=== PATIENT | male | born 1940 | race Caucasian/White ===

== ENCOUNTER → 2016-05-15 | Outpatient (REF) | payer MEDICARE ==
[~2016-05-15] MED LIST: ASPI81TA85 PO; BEE580CA PO; DOCQ100C PO; FURO40TA2 PO; GING550C PO; IRONCAP2 PO; LISI10TA4 PO; LUTECAP3 PO; METF500T PO; METO25TAB PO; OMEP40CA2 PO; VITATAB11 PO; [UNRECOGNIZED DRUG - CODE] PO
[2016-05-15 18:17] LABS: BASO % 0.5 % (0.0-1.0); EOS # 0.2 K/mm3 (0.0-0.50); EOS % 3.9 % (0.0-3.0); LARGE UNSTAINED CELL # 0.2 K/mm3 (0.0-0.4); LARGE UNSTAINED CELL % 4.8 % (0.0-4.0); LYMPH # 1.6 K/mm3 (1.5-4.5); LYMPH % 31.7 % (24.0-44.0); MEAN CORPUSCULAR HEMOGLOBIN 33.3 pg (27.0-33.0); MEAN CORPUSCULAR HGB CONC 34.5 g/dl (32.0-36.5); MEAN CORPUSCULAR VOLUME 96.7 fl (80.0-96.0); MONO # 0.5 K/mm3 (0.0-0.8); MONO % 10.4 % (0.0-5.0); NEUTROPHILS # 2.4 K/mm3 (1.8-7.7); NEUTROPHILS % 48.7 % (36.0-66.0); PLATELET COUNT, AUTOMATED 181 k/mm3 (150-450); RED CELL DISTRIBUTION WIDTH 12.9 % (11.5-14.5)
[2016-05-15 18:25] LABS: CALCIUM LEVEL 8.5 MG/DL (8.8-10.2); CREATININE FOR GFR 1.3 MG/DL (0.70-1.30); GLOMERULAR FILTRATION RATE 57.6 (>42); POTASSIUM SERUM 4.4 MEQ/L (3.5-5.1)
== END ==
LOC: M LABDRAW1 16:06
PROVIDERS: ATTEND Physician Assistant
DX: R05 Cough (principal); Z79.899 Other long term (current) drug therapy

== ENCOUNTER → 2016-06-06 | Outpatient (CLI) | payer MEDICARE ==
[2016-06-06 13:40] LABS: ALBUMIN 3.5 GM/DL (3.2-5.2); ALBUMIN/GLOBULIN RATIO 1.17 (1.00-1.93); BILIRUBIN,DIRECT 0.1 MG/DL (0.0-0.2); BILIRUBIN,TOTAL 0.4 MG/DL (0.2-1.0); TOTAL PROTEIN 6.5 GM/DL (6.4-8.2)
== END ==
LOC: M SMT 10:58
PROVIDERS: ATTEND Internal Medicine Cardiovascular Disease
DX: I48.91 Unspecified atrial fibrillation (principal)

== ENCOUNTER → 2016-07-02 | Outpatient (CLI) | payer MEDICARE ==
[2016-07-02 11:40] LABS: ALBUMIN 3.4 GM/DL (3.2-5.2); ALBUMIN/GLOBULIN RATIO 1.17 (1.00-1.93); ALKALINE PHOSPHATASE 51 U/L (45-117); ALT/SGPT 32 U/L (12-78); ANION GAP 7 MEQ/L (8-16); AST/SGOT 25 U/L (15-37); BILIRUBIN,TOTAL 0.6 MG/DL (0.2-1.0); BLOOD UREA NITROGEN 16 MG/DL (7-18); CALCIUM LEVEL 8.7 MG/DL (8.8-10.2); CARBON DIOXIDE LEVEL 30 MEQ/L (21-32); CHLORIDE LEVEL 104 MEQ/L (98-107); CHOLESTEROL LEVEL 98 MG/DL (<200); CREATININE FOR GFR 1.18 MG/DL (0.70-1.30); GLOMERULAR FILTRATION RATE > 60.0 (>42); GLUCOSE, FASTING 101 MG/DL (83-110); POTASSIUM SERUM 4.8 MEQ/L (3.5-5.1); SODIUM LEVEL 141 MEQ/L (136-145); TOTAL PROTEIN 6.3 GM/DL (6.4-8.2); TRIGLYCERIDES LEVEL 67 MG/DL (<150)
[2016-07-02 11:49] LABS: BASO % 0.8 % (0.0-1.0); EOS # 0.9 K/mm3 (0.0-0.50); EOS % 16.2 % (0.0-3.0); LARGE UNSTAINED CELL # 0.2 K/mm3 (0.0-0.4); LARGE UNSTAINED CELL % 3.2 % (0.0-4.0); LYMPH # 1.9 K/mm3 (1.5-4.5); LYMPH % 29.9 % (24.0-44.0); MEAN CORPUSCULAR HEMOGLOBIN 34.5 pg (27.0-33.0); MEAN CORPUSCULAR HGB CONC 34.4 g/dl (32.0-36.5); MEAN CORPUSCULAR VOLUME 100.3 fl (80.0-96.0); MONO # 0.4 K/mm3 (0.0-0.8); MONO % 6.9 % (0.0-5.0); NEUTROPHILS # 2.5 K/mm3 (1.8-7.7); NEUTROPHILS % 43.1 % (36.0-66.0); PLATELET COUNT, AUTOMATED 161 k/mm3 (150-450); RED CELL DISTRIBUTION WIDTH 13.2 % (11.5-14.5); WHITE BLOOD COUNT 5.8 K/mm3 (4.0-10.0)
== END ==
LOC: M SMT 07:59
PROVIDERS: ATTEND Family Medicine
DX: D50.9 Iron deficiency anemia, unspecified (principal); E11.9 Type 2 diabetes mellitus without complications; Z98.61 Coronary angioplasty status

== ENCOUNTER → 2016-08-08 | Outpatient (CLI) | payer MEDICARE ==
--- NOTE | 2016-08-08 14:59 | REP ---
Clinical: Dizziness . Technique: Stevens scale and color Doppler evaluation using linear high frequency transducer Findings: Two-dimensional stevens scale and color images demonstrate mixed small with atheromatous plaquing along the bilateral common carotid arteries extending to the carotid bulbs where moderate amount of mixed plaque material is identified (right greater than left). Color images suggest mild turbulent flow through the atheromatous plaquing of the right carotid bulb. Color Doppler interrogation demonstrates normal arterial wave patterns and velocities with moderate spectral broadening. Normal flow direction is appreciated in the bilateral vertebral arteries. RIGHT (cm/s) LEFT (cm/s) ICA peak systolic velocity 100.6 68.9 ICA diastolic velocity 30.7 22.6 ECA peak systolic velocity 86.2 79.5 CCA peak systolic velocity 89.9 90.9 ICA/CCA ratio 1.02 0.76 Impression: 1. Based on set standards, narrowing falls within the less than 50% range. 2. Focal prominent atheromatous plaquing in the right carotid bulb causing mild turbulence and spectral broadening may warrant MRA corroboration. Signed by Bruno Gomez MD 08/08/2016 01:05 P
== END ==
LOC: M RAD 11:22
PROVIDERS: ATTEND Physician Assistant
DX: R42 Dizziness and giddiness (principal)

== ENCOUNTER → 2016-08-16 | Outpatient (CLI) | payer MEDICARE ==
--- NOTE | 2016-08-16 11:08 | REP ---
Chest two views HISTORY: Dyspnea Comparison: 05/15/2016 An increase in interstitial markings is present in the lungs. Linear density is present in the right lower lobe consistent with scar. The heart is normal in size. The pulmonary vasculature is normal in appearance. The bony structure is intact. IMPRESSION: COPD. Signed by Jeff Martin MD 08/16/2016 11:00 A
== END ==
LOC: M SMT 10:14
PROVIDERS: ATTEND Internal Medicine Cardiovascular Disease
DX: R06.2 Wheezing (principal); J44.9 Chronic obstructive pulmonary disease, unspecified

== ENCOUNTER → 2016-10-05 | Outpatient (REF) | payer MEDICARE ==
[2016-10-05 13:19] LABS: FOLATE 15.7 NG/ML; VITAMIN B12 LEVEL 509 PG/ML
[2016-10-05 13:46] LABS: ANION GAP 7 MEQ/L (8-16); BLOOD UREA NITROGEN 26 MG/DL (7-18); CALCIUM LEVEL 8.9 MG/DL (8.8-10.2); CARBON DIOXIDE LEVEL 28 MEQ/L (21-32); CHLORIDE LEVEL 107 MEQ/L (98-107); CREATININE FOR GFR 1.18 MG/DL (0.70-1.30); FREE T4 1.38 NG/DL (0.76-1.46); GLOMERULAR FILTRATION RATE > 60.0 (>42); GLUCOSE, FASTING 108 MG/DL (83-110); PERCENT SATURATION 32.1 % (19.7-37.4); SODIUM LEVEL 142 MEQ/L (136-145); TOTAL IRON BINDING CAPACITY 243 UG/DL (250-450)
[2016-10-05 13:50] LABS: POTASSIUM SERUM 5.2 MEQ/L (3.5-5.1)
[2016-10-06 14:12] LABS: Lyme Disease IgG/IgM Antibodie <0.91 ISR (0.00-0.90); Lyme Disease IgM Ab Quantitati <0.80 index (0.00-0.79)
== END ==
LOC: M LABSMT 12:49
PROVIDERS: ATTEND Physician Assistant
DX: I48.1 Persistent atrial fibrillation (principal); D50.9 Iron deficiency anemia, unspecified; E11.9 Type 2 diabetes mellitus without complications; S40.862A Insect bite (nonvenomous) of left upper arm, initial encounter; X58.XXXA Exposure to other specified factors, initial encounter; Y93.9 Activity, unspecified; Y92.9 Unspecified place or not applicable; Y99.8 Other external cause status

== ENCOUNTER → 2017-01-22 | Outpatient (CLI) | payer MEDICARE ==
[~2017-01-22] MED LIST changes: -METF500T PO; +METF500T13 PO
[2017-01-22 13:07] LABS: BASO % 0.6 % (0.0-1.0); EOS # 0.3 K/mm3 (0.0-0.50); LARGE UNSTAINED CELL # 0.2 K/mm3 (0.0-0.4); LARGE UNSTAINED CELL % 3.2 % (0.0-4.0); LYMPH # 1.4 K/mm3 (1.5-4.5); MEAN CORPUSCULAR HEMOGLOBIN 34.1 pg (27.0-33.0); MEAN CORPUSCULAR HGB CONC 33.8 g/dl (32.0-36.5); MEAN CORPUSCULAR VOLUME 100.9 fl (80.0-96.0); MONO # 0.4 K/mm3 (0.0-0.8); MONO % 7.7 % (0.0-5.0); NEUTROPHILS # 3.3 K/mm3 (1.8-7.7); NEUTROPHILS % 57.5 % (36.0-66.0); PLATELET COUNT, AUTOMATED 183 k/mm3 (150-450); RED CELL DISTRIBUTION WIDTH 13.1 % (11.5-14.5); WHITE BLOOD COUNT 5.7 K/mm3 (4.0-10.0)
[2017-01-22 13:56] LABS: ALBUMIN 3.5 GM/DL (3.2-5.2); ALBUMIN/GLOBULIN RATIO 1.21 (1.00-1.93); ALKALINE PHOSPHATASE 52 U/L (45-117); ALT/SGPT 30 U/L (12-78); ANION GAP 6 MEQ/L (8-16); AST/SGOT 17 U/L (15-37); BILIRUBIN,TOTAL 0.6 MG/DL (0.2-1.0); BLOOD UREA NITROGEN 17 MG/DL (7-18); CALCIUM LEVEL 8.4 MG/DL (8.8-10.2); CARBON DIOXIDE LEVEL 29 MEQ/L (21-32); CHLORIDE LEVEL 109 MEQ/L (98-107); CHOLESTEROL LEVEL 94 MG/DL (<200); GLOMERULAR FILTRATION RATE > 60.0 (>42); GLUCOSE, FASTING 96 MG/DL (83-110); POTASSIUM SERUM 4.8 MEQ/L (3.5-5.1); SODIUM LEVEL 144 MEQ/L (136-145); TOTAL PROTEIN 6.4 GM/DL (6.4-8.2); TRIGLYCERIDES LEVEL 82 MG/DL (<150)
[2017-01-23 14:14] LABS: PSA TOTAL 0.7 ng/mL (0.0-4.0)
== END ==
LOC: M SMT 08:00
PROVIDERS: ATTEND Family Medicine
DX: I48.1 Persistent atrial fibrillation (principal); R35.0 Frequency of micturition; E11.9 Type 2 diabetes mellitus without complications

== ENCOUNTER → 2017-02-03 | Outpatient (CLI) | payer MEDICARE ==
--- NOTE | 2017-02-07 10:41 | SLEEPCENT ---
DATE OF PROCEDURE: 02/03/2017 REQUESTING PROVIDER: Dr. Gilman INTERPRETATION: Nocturnal polysomnography was performed for the titration of pressure therapy in this patient with a clinical diagnosis of obstructive sleep apnea syndrome supported by home testing, which revealed a respiratory event index of 56.8. For testing, a [employer] Simplus full face mask of medium size was used, 4 cm of water pressure were applied to the circuit and the lights were extinguished. 8 hours and 10 minutes of data were reviewed. There were 374 minutes of sleep identified. Sleep latency was mildly prolonged at 48 minutes. Rapid eye movement (REM) latency was short at 34 minutes. Sleep architecture was good with five REM periods. Overall sleep efficiency was 77.5%. Electrocardiogram (EKG) showed a sinus rhythm with an average heart rate of 58 beats per minute. Unifocal ventricular ectopy was seen on occasion. Some heart rate variability was seen early in the study. Rate ranged 50 to 80 beats per minute. Electroencephalogram (EEG) showed reasonably normal waveforms. There were no focal events identified. Respiratory events were best palliated with a CPAP to a pressure of +8. Significant limb activity was seen over the course of the study with multiple trains of events, but limb movement arousal index was 5.4. IMPRESSION: Obstructive sleep apnea syndrome (G47.33). RECOMMENDATIONS: Nightly use of pressure therapy at 8 cm of water.
== END ==
LOC: M SLEEP 20:00
PROVIDERS: ATTEND Internal Medicine Pulmonary Disease
DX: G47.33 Obstructive sleep apnea (adult) (pediatric) (principal)

== ENCOUNTER → 2017-04-22 | Outpatient (CLI) | payer MEDICARE ==
[2017-04-22 18:34] LABS: ANION GAP 7 MEQ/L (8-16); BLOOD UREA NITROGEN 15 MG/DL (7-18); CALCIUM LEVEL 8.8 MG/DL (8.8-10.2); CARBON DIOXIDE LEVEL 29 MEQ/L (21-32); CHLORIDE LEVEL 105 MEQ/L (98-107); CREATININE FOR GFR 1.21 MG/DL (0.70-1.30); GLOMERULAR FILTRATION RATE > 60.0 (>42); GLUCOSE, FASTING 76 MG/DL (83-110); POTASSIUM SERUM 4.5 MEQ/L (3.5-5.1); SODIUM LEVEL 141 MEQ/L (136-145)
== END ==
LOC: M SMT 14:42
PROVIDERS: ATTEND Physician Assistant
DX: E11.9 Type 2 diabetes mellitus without complications (principal)

== ENCOUNTER → 2017-07-17 | Outpatient (CLI) | payer MEDICARE ==
[2017-07-17 13:33] LABS: BASO % 0.7 % (0.0-1.0); EOS # 0.3 10^3/uL (0.0-0.50); EOS % 5.2 % (0.0-3.0); HEMATOCRIT 40.9 % (42.0-52.0); HEMOGLOBIN 13.7 g/dl (14.0-18.0); IMMATURE GRANULOCYTE % 0.2 % (0-3.0); LYMPH # 2.2 10^3/uL (1.5-4.5); LYMPH % 35.2 % (24.0-44.0); MEAN CORPUSCULAR HEMOGLOBIN 32.4 pg (27.0-33.0); MEAN CORPUSCULAR HGB CONC 33.5 g/dl (32.0-36.5); MEAN CORPUSCULAR VOLUME 96.7 fl (80.0-96.0); MONO # 0.8 10^3/uL (0.0-0.8); MONO % 12.9 % (0.0-5.0); NEUTROPHILS # 2.8 10^3/uL (1.8-7.7); NEUTROPHILS % 45.8 % (36.0-66.0); PLATELET COUNT, AUTOMATED 152 10^3/uL (150-450); RED BLOOD COUNT 4.23 10^6/uL (4.30-6.10); RED CELL DISTRIBUTION WIDTH 12.9 % (11.5-14.5); WHITE BLOOD COUNT 6.1 10^3/uL (4.0-10.0)
[2017-07-17 14:39] LABS: ALBUMIN 3.5 GM/DL (3.2-5.2); ALBUMIN/GLOBULIN RATIO 1.13 (1.00-1.93); ALKALINE PHOSPHATASE 59 U/L (45-117); ALT/SGPT 25 U/L (12-78); ANION GAP 5 MEQ/L (8-16); AST/SGOT 16 U/L (7-37); BILIRUBIN,TOTAL 0.6 MG/DL (0.2-1.0); BLOOD UREA NITROGEN 22 MG/DL (7-18); CALCIUM LEVEL 8.3 MG/DL (8.8-10.2); CARBON DIOXIDE LEVEL 28 MEQ/L (21-32); CHLORIDE LEVEL 107 MEQ/L (98-107); CREATININE FOR GFR 1.21 MG/DL (0.70-1.30); FERRITIN 309 NG/ML (26-388); GLOMERULAR FILTRATION RATE > 60.0 (>42); GLUCOSE, FASTING 105 MG/DL (70-100); IRON (FE) 94 UG/DL (65-175); POTASSIUM SERUM 4.6 MEQ/L (3.5-5.1); SODIUM LEVEL 140 MEQ/L (136-145); TOTAL PROTEIN 6.6 GM/DL (6.4-8.2)
[2017-07-17 15:49] LABS: ESTIMATED AVERAGE GLUCOSE 120 MG/DL (60-110); HEMOGLOBIN A1c 5.8 %
== END ==
LOC: M SMT 08:12
DX: E11.9 Type 2 diabetes mellitus without complications (principal); K59.00 Constipation, unspecified; D50.9 Iron deficiency anemia, unspecified
CPT/HCPCS: 83540

== ENCOUNTER → 2017-08-05 | Outpatient (CLI) | payer MEDICARE | LOC: M SMT 09:05 | DX: M54.16 Radiculopathy, lumbar region (principal) | CPT/HCPCS: 72114 ==

== ENCOUNTER → 2017-10-21 | Outpatient (CLI) | payer MEDICARE ==
[2017-10-21 13:33] LABS: ANION GAP 6 MEQ/L (8-16); BLOOD UREA NITROGEN 17 MG/DL (7-18); CALCIUM LEVEL 8.4 MG/DL (8.8-10.2); CARBON DIOXIDE LEVEL 27 MEQ/L (21-32); CHLORIDE LEVEL 107 MEQ/L (98-107); CREATININE FOR GFR 1.11 MG/DL (0.70-1.30); GLOMERULAR FILTRATION RATE > 60.0 (>42); GLUCOSE, FASTING 111 MG/DL (70-100); POTASSIUM SERUM 4.8 MEQ/L (3.5-5.1); PSA SCREENING 0.72 NG/ML (< 4.0); SODIUM LEVEL 140 MEQ/L (136-145)
[2017-10-21 13:57] LABS: CREATININE, URINE 96.5 MG/DL; MALB URINE SIEMENS < 5.0 MG/L; MAU/CREAT RATIO 5.1 MCG/MG (0.0-30.0)
[2017-10-21 14:24] LABS: ESTIMATED AVERAGE GLUCOSE 128 MG/DL (60-110); HEMOGLOBIN A1c 6.1 %
== END ==
LOC: M SMT 07:59
DX: E11.9 Type 2 diabetes mellitus without complications (principal); Z12.5 Encounter for screening for malignant neoplasm of prostate
CPT/HCPCS: 83036

== ENCOUNTER → 2018-01-27 | Outpatient (CLI) | payer MEDICARE ==
[2018-01-27 15:57] LABS: ESTIMATED AVERAGE GLUCOSE 111 MG/DL (60-110); HEMOGLOBIN A1c 5.5 %
[2018-01-27 20:55] LABS: ALBUMIN 3.5 GM/DL (3.2-5.2); ALBUMIN/GLOBULIN RATIO 1.17 (1.00-1.93); ALKALINE PHOSPHATASE 59 U/L (45-117); ALT/SGPT 33 U/L (12-78); ANION GAP 8 MEQ/L (8-16); AST/SGOT 23 U/L (7-37); BILIRUBIN,TOTAL 0.6 MG/DL (0.2-1.0); BLOOD UREA NITROGEN 21 MG/DL (7-18); CALCIUM LEVEL 8.8 MG/DL (8.8-10.2); CARBON DIOXIDE LEVEL 26 MEQ/L (21-32); CHLORIDE LEVEL 107 MEQ/L (98-107); CREATININE FOR GFR 1.19 MG/DL (0.70-1.30); GLOMERULAR FILTRATION RATE > 60.0 (>42); GLUCOSE, FASTING 96 MG/DL (70-100); SODIUM LEVEL 141 MEQ/L (136-145); TOTAL PROTEIN 6.5 GM/DL (6.4-8.2)
== END ==
LOC: M SMT 08:02
DX: E11.9 Type 2 diabetes mellitus without complications (principal)
CPT/HCPCS: 80053

== ENCOUNTER → 2018-04-23 | Outpatient (CLI) | payer MEDICARE ==
[2018-04-23 13:29] LABS: BASO # 0.1 10^3/uL (0.0-0.2); BASO % 0.9 % (0.0-1.0); EOS # 0.3 10^3/uL (0.0-0.50); EOS % 4.5 % (0.0-3.0); HEMATOCRIT 39.3 % (42.0-52.0); HEMOGLOBIN 13.6 g/dl (13.5-17.5); IMMATURE GRANULOCYTE % 0.4 % (0-3.0); LYMPH # 1.5 10^3/uL (1.5-4.5); LYMPH % 26.6 % (24.0-44.0); MEAN CORPUSCULAR HEMOGLOBIN 33.8 pg (27.0-33.0); MEAN CORPUSCULAR HGB CONC 34.6 g/dl (32.0-36.5); MEAN CORPUSCULAR VOLUME 97.8 fl (80.0-96.0); MONO # 0.7 10^3/uL (0.0-0.8); MONO % 13.2 % (0.0-5.0); NEUTROPHILS % 54.4 % (36.0-66.0); PLATELET COUNT, AUTOMATED 168 10^3/uL (150-450); RED BLOOD COUNT 4.02 10^6/uL (4.30-6.10); RED CELL DISTRIBUTION WIDTH 12.5 % (11.5-14.5); WHITE BLOOD COUNT 5.5 10^3/uL (4.0-10.0)
[2018-04-23 14:53] LABS: ALBUMIN 3.4 GM/DL (3.2-5.2); ALBUMIN/GLOBULIN RATIO 1.13 (1.00-1.93); ALKALINE PHOSPHATASE 57 U/L (45-117); ALT/SGPT 27 U/L (12-78); ANION GAP 6 MEQ/L (8-16); AST/SGOT 27 U/L (7-37); BILIRUBIN,TOTAL 0.5 MG/DL (0.2-1.0); BLOOD UREA NITROGEN 12 MG/DL (7-18); CALCIUM LEVEL 8.6 MG/DL (8.8-10.2); CARBON DIOXIDE LEVEL 26 MEQ/L (21-32); CHLORIDE LEVEL 106 MEQ/L (98-107); CHOLESTEROL LEVEL 98 MG/DL (<200); CREATININE FOR GFR 1.17 MG/DL (0.70-1.30); FREE T4 1.28 NG/DL (0.76-1.46); GLOMERULAR FILTRATION RATE > 60.0 (>42); GLUCOSE, FASTING 100 MG/DL (70-100); HDL CHOLESTEROL 40 MG/DL (>40); LDL CHOLESTEROL 39 MG/DL (<100); NON-HDL-C 58 MG/DL; POTASSIUM SERUM 4.9 MEQ/L (3.5-5.1); SODIUM LEVEL 138 MEQ/L (136-145); TOTAL PROTEIN 6.4 GM/DL (6.4-8.2); TRIGLYCERIDES LEVEL 97 MG/DL (<150)
[2018-04-23 16:35] LABS: ESTIMATED AVERAGE GLUCOSE 123 MG/DL (60-110); HEMOGLOBIN A1c 5.9 %
== END ==
LOC: M SMT 08:55
DX: E11.9 Type 2 diabetes mellitus without complications (principal); I48.1 Persistent atrial fibrillation
CPT/HCPCS: 84443

== ENCOUNTER → 2018-05-20 | Outpatient (CLI) | payer MEDICARE ==
[~2018-05-20] MED LIST changes: -DOCQ100C PO; +DOCQ100C5 PO
--- NOTE | 2018-05-20 10:02 | REP ---
RIGHT SHOULDER, THREE VIEWS: HISTORY: Pain. There is no acute fracture or dislocation. There is minimal narrowing of the glenohumeral joint space and moderate narrowing of the acromioclavicular joint space. IMPRESSION: There is no acute fracture or dislocation. Electronically Signed by Jeff Martin MD 05/20/2018 10:07 A
== END ==
LOC: M SMT 09:14
PROVIDERS: ATTEND Family Medicine
DX: M25.511 Pain in right shoulder (principal)

== ENCOUNTER → 2018-08-14 | Outpatient (CLI) | payer MEDICARE ==
[~2018-08-14] MED LIST changes: +METO1TAB63 PO; -METO25TAB PO
[2018-08-14 14:10] LABS: BASO % 0.7 % (0.0-1.0); EOS # 0.3 10^3/uL (0.0-0.50); EOS % 4.9 % (0.0-3.0); HEMATOCRIT 39.4 % (42.0-52.0); HEMOGLOBIN 13.4 g/dl (13.5-17.5); LYMPH # 1.7 10^3/uL (1.5-4.5); LYMPH % 27.7 % (24.0-44.0); MEAN CORPUSCULAR HEMOGLOBIN 33.7 pg (27.0-33.0); MONO # 0.8 10^3/uL (0.0-0.8); MONO % 13.8 % (0.0-5.0); NEUTROPHILS # 3.1 10^3/uL (1.8-7.7); NEUTROPHILS % 52.6 % (36.0-66.0); PLATELET COUNT, AUTOMATED 142 10^3/uL (150-450); RED BLOOD COUNT 3.98 10^6/uL (4.30-6.10)
[2018-08-14 14:17] LABS: ALBUMIN 3.5 GM/DL (3.2-5.2); ALT/SGPT 23 U/L (12-78); BILIRUBIN,TOTAL 0.6 MG/DL (0.2-1.0); BLOOD UREA NITROGEN 22 MG/DL (7-18); CALCIUM LEVEL 8.5 MG/DL (8.8-10.2); CARBON DIOXIDE LEVEL 28 MEQ/L (21-32); CHLORIDE LEVEL 108 MEQ/L (98-107); CREATININE FOR GFR 1.15 MG/DL (0.70-1.30); FERRITIN 254 NG/ML (26-388); GLOMERULAR FILTRATION RATE > 60.0 (>42); GLUCOSE, FASTING 97 MG/DL (70-100); POTASSIUM SERUM 4.7 MEQ/L (3.5-5.1); SODIUM LEVEL 140 MEQ/L (136-145); TOTAL PROTEIN 6.2 GM/DL (6.4-8.2)
[2018-08-14 14:36] LABS: MALB URINE SIEMENS < 5.0 MG/L
== END ==
LOC: M SMT 09:12
PROVIDERS: ATTEND Family Medicine
DX: E11.9 Type 2 diabetes mellitus without complications (principal); D50.9 Iron deficiency anemia, unspecified

== ENCOUNTER → 2018-11-11 | Outpatient (CLI) | payer MEDICARE ==
[2018-11-11 13:17] LABS: BASO # 0.1 10^3/uL (0.0-0.2); BASO % 0.8 % (0.0-1.0); EOS # 0.2 10^3/uL (0.0-0.50); EOS % 3.3 % (0.0-3.0); HEMOGLOBIN 13.4 g/dl (13.5-17.5); LYMPH # 2.2 10^3/uL (1.5-4.5); LYMPH % 34.1 % (24.0-44.0); MEAN CORPUSCULAR HEMOGLOBIN 33.7 pg (27.0-33.0); MEAN CORPUSCULAR HGB CONC 34.4 g/dl (32.0-36.5); MONO # 0.8 10^3/uL (0.0-0.8); MONO % 13.2 % (0.0-5.0); NEUTROPHILS # 3.1 10^3/uL (1.8-7.7); NEUTROPHILS % 48.3 % (36.0-66.0); PLATELET COUNT, AUTOMATED 159 10^3/uL (150-450); RED BLOOD COUNT 3.98 10^6/uL (4.30-6.10); WHITE BLOOD COUNT 6.4 10^3/uL (4.0-10.0)
[2018-11-11 13:55] LABS: ALBUMIN 3.4 GM/DL (3.2-5.2); ALT/SGPT 23 U/L (12-78); BILIRUBIN,TOTAL 0.5 MG/DL (0.2-1.0); BLOOD UREA NITROGEN 21 MG/DL (7-18); CALCIUM LEVEL 8.4 MG/DL (8.8-10.2); CARBON DIOXIDE LEVEL 28 MEQ/L (21-32); CHLORIDE LEVEL 105 MEQ/L (98-107); CHOLESTEROL LEVEL 113 MG/DL (<200); CHOLESTEROL RISK RATIO 2.568 (<5); FREE T4 1.04 NG/DL (0.76-1.46); GLOMERULAR FILTRATION RATE > 60.0 (>42); GLUCOSE, FASTING 92 MG/DL (70-100); HDL CHOLESTEROL 44 MG/DL (>40); LDL CHOLESTEROL 52 MG/DL (<100); NON-HDL-C 69 MG/DL; POTASSIUM SERUM 4.6 MEQ/L (3.5-5.1); SODIUM LEVEL 138 MEQ/L (136-145); TOTAL PROTEIN 6.6 GM/DL (6.4-8.2); TRIGLYCERIDES LEVEL 86 MG/DL (<150)
[2018-11-11 14:01] LABS: HEMOGLOBIN A1c 6.2 %
[2018-11-12 14:34] LABS: PSA TOTAL 1.6 ng/mL (0.0-4.0)
== END ==
LOC: M SMT 11:51
PROVIDERS: ATTEND Physician Assistant
DX: Z00.00 Encounter for general adult medical examination without abnormal findings (principal); E11.9 Type 2 diabetes mellitus without complications; Z79.01 Long term (current) use of anticoagulants; E78.2 Mixed hyperlipidemia; I25.10 Atherosclerotic heart disease of native coronary artery without angina pectoris; I48.1 Persistent atrial fibrillation; Z12.5 Encounter for screening for malignant neoplasm of prostate

== ENCOUNTER → 2019-02-10 | Outpatient (CLI) | payer MEDICARE ==
[2019-02-10 13:42] LABS: BASO % 0.5 % (0.0-1.0); EOS # 0.2 10^3/uL (0.0-0.5); EOS % 2.3 % (0.0-3.0); HEMATOCRIT 40.5 % (42.0-52.0); HEMOGLOBIN 13.7 g/dl (13.5-17.5); LYMPH # 2.1 10^3/uL (1.5-5.0); LYMPH % 28.1 % (24.0-44.0); MEAN CORPUSCULAR HEMOGLOBIN 33.7 pg (27.0-33.0); MEAN CORPUSCULAR HGB CONC 33.8 g/dl (32.0-36.5); MEAN CORPUSCULAR VOLUME 99.8 fl (80.0-96.0); MONO % 13.7 % (0.0-5.0); NEUTROPHILS % 54.9 % (36.0-66.0); PLATELET COUNT, AUTOMATED 183 10^3/uL (150-450); RED BLOOD COUNT 4.06 10^6/uL (4.30-6.10); WHITE BLOOD COUNT 7.3 10^3/uL (4.0-10.0)
[2019-02-10 13:57] LABS: ALBUMIN 3.4 GM/DL (3.2-5.2); ALT/SGPT 23 U/L (12-78); BILIRUBIN,TOTAL 0.5 MG/DL (0.2-1.0); BLOOD UREA NITROGEN 12 MG/DL (7-18); CALCIUM LEVEL 8.9 MG/DL (8.8-10.2); CARBON DIOXIDE LEVEL 29 MEQ/L (21-32); CHLORIDE LEVEL 106 MEQ/L (98-107); CREATININE FOR GFR 1.17 MG/DL (0.70-1.30); FREE T4 1.05 NG/DL (0.76-1.46); GLOMERULAR FILTRATION RATE > 60.0 (>42); GLUCOSE, FASTING 87 MG/DL (70-100); IRON (FE) 102 UG/DL (65-175); PERCENT SATURATION 37.9 % (19.7-50.0); POTASSIUM SERUM 4.4 MEQ/L (3.5-5.1); SODIUM LEVEL 140 MEQ/L (136-145); TOTAL IRON BINDING CAPACITY 269 UG/DL (250-450); TOTAL PROTEIN 6.8 GM/DL (6.4-8.2)
[2019-02-10 14:34] LABS: HEMOGLOBIN A1c 5.5 %
== END ==
LOC: M SMT 11:03
PROVIDERS: ATTEND Family Medicine
DX: E11.9 Type 2 diabetes mellitus without complications (principal); D50.9 Iron deficiency anemia, unspecified

== ENCOUNTER → 2019-02-11 | Outpatient (REF) | payer MEDICARE ==
[2019-02-11 12:11] LABS: MALB URINE SIEMENS 10.2 MG/L; MAU/CREAT RATIO 4.3 MCG/MG (0.0-30.0)
== END ==
LOC: M LAB REF 10:34
PROVIDERS: ATTEND Family Medicine
DX: E11.9 Type 2 diabetes mellitus without complications (principal); D50.9 Iron deficiency anemia, unspecified

== ENCOUNTER → 2019-03-19 | Outpatient (REF) | payer MEDICARE ==
[~2019-03-19] MED LIST changes: -OMEP40CA2 PO; +OMEP40CA97 PO
[2019-03-19 17:41] LABS: APPEARANCE, URINE CLEAR (CLEAR); BACTERIA, URINE AUTO NEGATIVE (NEGATIVE); BILIRUBIN, URINE AUTO NEGATIVE (NEGATIVE); BLOOD, URINE BLOOD NEGATIVE (NEGATIVE); COLOR, URINE YELLOW (YELLOW); GLUCOSE, URINE (UA) AUTO NEGATIVE (NEGATIVE); KETONE, URINE AUTO NEGATIVE (NEGATIVE); LEUKOCYTE ESTERASE, URINE AUTO NEGATIVE (NEGATIVE); NITRITE, URINE AUTO NEGATIVE (NEGATIVE); PROTEIN, URINE AUTO NEGATIVE (NEGATIVE); RBC, URINE AUTO 2 /HPF (0-3); SPECIFIC GRAVITY URINE AUTO 1.016 (1.002-1.035); SQUAMOUS EPITHELIAL CELL UR AU 0 /HPF (0-6); UROBILINOGEN, URINE AUTO 0.2 mg/dL (0.0-2.0); WBC, URINE AUTO 0 /HPF (0-3)
== END ==
LOC: M LAB REF 17:07
PROVIDERS: ATTEND Physician Assistant
DX: N40.1 Benign prostatic hyperplasia with lower urinary tract symptoms (principal)

== ENCOUNTER → 2019-04-01 | Outpatient (CLI) | payer MEDICARE ==
[2019-04-01 10:45] LABS: BASO % 0.5 % (0.0-1.0); EOS # 0.2 10^3/uL (0.0-0.5); EOS % 4.1 % (0.0-3.0); HEMATOCRIT 41.2 % (42.0-52.0); HEMOGLOBIN 13.5 g/dl (13.5-17.5); LYMPH # 1.6 10^3/uL (1.5-5.0); LYMPH % 26.2 % (24.0-44.0); MEAN CORPUSCULAR HEMOGLOBIN 33.1 pg (27.0-33.0); MEAN CORPUSCULAR HGB CONC 32.8 g/dl (32.0-36.5); MONO # 0.7 10^3/uL (0.0-0.8); MONO % 11.3 % (0.0-5.0); NEUTROPHILS # 3.4 10^3/uL (1.5-8.5); NEUTROPHILS % 57.6 % (36.0-66.0); PLATELET COUNT, AUTOMATED 172 10^3/uL (150-450); RED BLOOD COUNT 4.08 10^6/uL (4.30-6.10); WHITE BLOOD COUNT 5.9 10^3/uL (4.0-10.0)
[2019-04-01 11:08] LABS: BLOOD UREA NITROGEN 16 MG/DL (7-18); CALCIUM LEVEL 8.4 MG/DL (8.8-10.2); CARBON DIOXIDE LEVEL 29 MEQ/L (21-32); CHLORIDE LEVEL 106 MEQ/L (98-107); CREATININE FOR GFR 1.19 MG/DL (0.70-1.30); GLOMERULAR FILTRATION RATE > 60.0 (>42); GLUCOSE, FASTING 114 MG/DL (70-100); POTASSIUM SERUM 4.1 MEQ/L (3.5-5.1); SODIUM LEVEL 140 MEQ/L (136-145)
== END ==
LOC: M SMT 08:42
PROVIDERS: ATTEND Physician Assistant
DX: I48.11 Longstanding persistent atrial fibrillation (principal)

== ENCOUNTER → 2019-06-29 | Outpatient (CLI) | payer MEDICARE ==
[2019-06-29 13:42] LABS: BASO % 0.7 % (0.0-1.0); EOS # 0.2 10^3/uL (0.0-0.5); EOS % 3.5 % (0.0-3.0); HEMATOCRIT 40.7 % (42.0-52.0); HEMOGLOBIN 13.8 g/dl (13.5-17.5); LYMPH # 1.6 10^3/uL (1.5-5.0); LYMPH % 26.5 % (24.0-44.0); MEAN CORPUSCULAR HEMOGLOBIN 33.3 pg (27.0-33.0); MEAN CORPUSCULAR HGB CONC 33.9 g/dl (32.0-36.5); MEAN CORPUSCULAR VOLUME 98.3 fl (80.0-96.0); MONO # 0.7 10^3/uL (0.0-0.8); MONO % 11.1 % (0.0-5.0); NEUTROPHILS # 3.5 10^3/uL (1.5-8.5); NEUTROPHILS % 57.7 % (36.0-66.0); PLATELET COUNT, AUTOMATED 168 10^3/uL (150-450); RED BLOOD COUNT 4.14 10^6/uL (4.30-6.10)
[2019-06-29 13:59] LABS: ALBUMIN 3.5 GM/DL (3.2-5.2); ALT/SGPT 22 U/L (12-78); BILIRUBIN,TOTAL 0.9 MG/DL (0.2-1.0); BLOOD UREA NITROGEN 14 MG/DL (7-18); CALCIUM LEVEL 8.5 MG/DL (8.8-10.2); CARBON DIOXIDE LEVEL 27 MEQ/L (21-32); CHLORIDE LEVEL 106 MEQ/L (98-107); CREATININE FOR GFR 1.13 MG/DL (0.70-1.30); FREE T4 1.04 NG/DL (0.76-1.46); GLOMERULAR FILTRATION RATE > 60.0 (>42); GLUCOSE, FASTING 98 MG/DL (70-100); POTASSIUM SERUM 4.3 MEQ/L (3.5-5.1); SODIUM LEVEL 138 MEQ/L (136-145); TOTAL PROTEIN 6.4 GM/DL (6.4-8.2)
== END ==
LOC: M PLALAB 09:53
PROVIDERS: ATTEND Physician Assistant
DX: J45.40 Moderate persistent asthma, uncomplicated (principal); I48.11 Longstanding persistent atrial fibrillation

== ENCOUNTER → 2019-10-01 | Outpatient (CLI) | payer MEDICARE ==
[2019-10-01 10:56] LABS: BASO # 0.1 10^3/uL (0.0-0.2); BASO % 0.7 % (0.0-1.0); EOS # 0.2 10^3/uL (0.0-0.5); EOS % 3.6 % (0.0-3.0); HEMATOCRIT 41.9 % (42.0-52.0); HEMOGLOBIN 14.3 g/dl (13.5-17.5); LYMPH # 1.7 10^3/uL (1.5-5.0); LYMPH % 25.3 % (24.0-44.0); MEAN CORPUSCULAR HEMOGLOBIN 33.6 pg (27.0-33.0); MEAN CORPUSCULAR HGB CONC 34.1 g/dl (32.0-36.5); MEAN CORPUSCULAR VOLUME 98.4 fl (80.0-96.0); MONO # 0.7 10^3/uL (0.0-0.8); MONO % 10.8 % (0.0-5.0); NEUTROPHILS % 59.3 % (36.0-66.0); PLATELET COUNT, AUTOMATED 166 10^3/uL (150-450); RED BLOOD COUNT 4.26 10^6/uL (4.30-6.10); WHITE BLOOD COUNT 6.7 10^3/uL (4.0-10.0)
[2019-10-01 11:06] LABS: ALT/SGPT 24 U/L (12-78); BLOOD UREA NITROGEN 15 MG/DL (7-18); CALCIUM LEVEL 8.4 MG/DL (8.8-10.2); CARBON DIOXIDE LEVEL 29 MEQ/L (21-32); CHLORIDE LEVEL 106 MEQ/L (98-107); CREATININE FOR GFR 1.18 MG/DL (0.70-1.30); GLOMERULAR FILTRATION RATE > 60.0 (>42); GLUCOSE, FASTING 111 MG/DL (70-100); POTASSIUM SERUM 4.6 MEQ/L (3.5-5.1); SODIUM LEVEL 140 MEQ/L (136-145)
[2019-10-01 11:07] LABS: ALBUMIN 3.4 GM/DL (3.2-5.2); BILIRUBIN,TOTAL 0.5 MG/DL (0.2-1.0); FERRITIN 240 NG/ML (26-388); FREE T4 1.09 NG/DL (0.76-1.46); IRON (FE) 56 UG/DL (65-175); PERCENT SATURATION 24.1 % (19.7-50.0); TOTAL IRON BINDING CAPACITY 232 UG/DL (250-450); TOTAL PROTEIN 6.8 GM/DL (6.4-8.2)
[2019-10-01 11:12] LABS: HEMOGLOBIN A1c 6.1 %
[2019-10-01 11:28] LABS: MALB URINE SIEMENS < 5.0 MG/L; MAU/CREAT RATIO 15.6 MCG/MG (0.0-30.0)
== END ==
LOC: M PLALAB 08:08
PROVIDERS: ATTEND Family Medicine
DX: E11.9 Type 2 diabetes mellitus without complications (principal); D50.9 Iron deficiency anemia, unspecified

== ENCOUNTER → 2019-12-30 | Outpatient (CLI) | payer MEDICARE ==
[~2019-12-30] MED LIST changes: -ASPI81TA85 PO; +ASPI81TA86 PO; +ATOR40TA75 PO; +ELIQ5TAB PO
[2019-12-30 17:42] LABS: BASO % 0.6 % (0.0-1.0); EOS # 0.3 10^3/uL (0.0-0.5); EOS % 4.9 % (0.0-3.0); HEMATOCRIT 40.3 % (42.0-52.0); HEMOGLOBIN 13.7 g/dl (13.5-17.5); LYMPH # 1.8 10^3/uL (1.5-5.0); LYMPH % 34.9 % (24.0-44.0); MEAN CORPUSCULAR HEMOGLOBIN 33.3 pg (27.0-33.0); MEAN CORPUSCULAR VOLUME 97.8 fl (80.0-96.0); MONO # 0.8 10^3/uL (0.0-0.8); MONO % 14.2 % (0.0-5.0); NEUTROPHILS # 2.4 10^3/uL (1.5-8.5); PLATELET COUNT, AUTOMATED 175 10^3/uL (150-450); RED BLOOD COUNT 4.12 10^6/uL (4.30-6.10); WHITE BLOOD COUNT 5.3 10^3/uL (4.0-10.0)
[2019-12-30 18:46] LABS: BLOOD UREA NITROGEN 14 MG/DL (7-18); CALCIUM LEVEL 8.9 MG/DL (8.8-10.2); CARBON DIOXIDE LEVEL 28 MEQ/L (21-32); CHLORIDE LEVEL 104 MEQ/L (98-107); CREATININE FOR GFR 1.13 MG/DL (0.70-1.30); GLOMERULAR FILTRATION RATE > 60.0 (>42); GLUCOSE, FASTING 88 MG/DL (70-100); POTASSIUM SERUM 4.5 MEQ/L (3.5-5.1); SODIUM LEVEL 136 MEQ/L (136-145)
[2019-12-30 20:51] LABS: HEMOGLOBIN A1c 5.7 %
[2020-01-02 08:09] LABS: PSA TOTAL 0.6 ng/mL (0.0-4.0)
== END ==
LOC: M PLALAB 14:51
PROVIDERS: ATTEND Physician Assistant
DX: N40.1 Benign prostatic hyperplasia with lower urinary tract symptoms (principal); E11.9 Type 2 diabetes mellitus without complications; Z79.01 Long term (current) use of anticoagulants

== ENCOUNTER → 2020-03-28 | Outpatient (CLI) | payer MEDICARE ==
[2020-03-28 13:44] LABS: BASO % 0.5 % (0.0-1.0); EOS # 0.1 10^3/uL (0.0-0.5); EOS % 2.1 % (0.0-3.0); HEMATOCRIT 40.2 % (42.0-52.0); HEMOGLOBIN 13.3 g/dl (13.5-17.5); LYMPH # 1.7 10^3/uL (1.5-5.0); LYMPH % 27.8 % (24.0-44.0); MEAN CORPUSCULAR HEMOGLOBIN 32.1 pg (27.0-33.0); MEAN CORPUSCULAR HGB CONC 33.1 g/dl (32.0-36.5); MEAN CORPUSCULAR VOLUME 97.1 fl (80.0-96.0); MONO # 0.8 10^3/uL (0.0-0.8); MONO % 12.4 % (0.0-5.0); NEUTROPHILS # 3.5 10^3/uL (1.5-8.5); NEUTROPHILS % 56.5 % (36.0-66.0); PLATELET COUNT, AUTOMATED 158 10^3/uL (150-450); RED BLOOD COUNT 4.14 10^6/uL (4.30-6.10); WHITE BLOOD COUNT 6.1 10^3/uL (4.0-10.0)
[2020-03-28 13:51] LABS: ALBUMIN 3.5 GM/DL (3.2-5.2); ALT/SGPT 16 U/L (12-78); BILIRUBIN,TOTAL 0.6 MG/DL (0.2-1.0); BLOOD UREA NITROGEN 19 MG/DL (7-18); CALCIUM LEVEL 8.6 MG/DL (8.8-10.2); CARBON DIOXIDE LEVEL 29 MEQ/L (21-32); CHLORIDE LEVEL 103 MEQ/L (98-107); CHOLESTEROL LEVEL 108 MG/DL (<200); CHOLESTEROL RISK RATIO 2.347 (<5); CREATININE FOR GFR 1.21 MG/DL (0.70-1.30); GLOMERULAR FILTRATION RATE > 60.0 (>42); GLUCOSE, FASTING 93 MG/DL (70-100); HDL CHOLESTEROL 46 MG/DL (>40); LDL CHOLESTEROL 49 MG/DL (<100); NON-HDL-C 62 MG/DL; POTASSIUM SERUM 4.3 MEQ/L (3.5-5.1); SODIUM LEVEL 137 MEQ/L (136-145); TOTAL PROTEIN 6.3 GM/DL (6.4-8.2); TRIGLYCERIDES LEVEL 65 MG/DL (<150)
[2020-03-28 14:25] LABS: MALB URINE SIEMENS 5.7 MG/L; MAU/CREAT RATIO 4.3 MCG/MG (0.0-30.0)
[2020-03-28 14:41] LABS: HEMOGLOBIN A1c 5.7 %
== END ==
LOC: M PLALAB 10:54
PROVIDERS: ATTEND Family Medicine
DX: E11.9 Type 2 diabetes mellitus without complications (principal)

== ENCOUNTER → 2020-07-05 | Outpatient (CLI) | payer MEDICARE ==
[~2020-07-05] MED LIST changes: +LISI10TA22 PO; -LISI10TA4 PO
[2020-07-05 11:40] LABS: BLOOD UREA NITROGEN 13 MG/DL (7-18); CALCIUM LEVEL 8.7 MG/DL (8.8-10.2); CARBON DIOXIDE LEVEL 30 MEQ/L (21-32); CHLORIDE LEVEL 105 MEQ/L (98-107); CREATININE FOR GFR 1.03 MG/DL (0.70-1.30); GLOMERULAR FILTRATION RATE > 60.0 (>42); GLUCOSE, FASTING 104 MG/DL (70-100); POTASSIUM SERUM 4.3 MEQ/L (3.5-5.1); SODIUM LEVEL 140 MEQ/L (136-145)
[2020-07-05 12:57] LABS: HEMOGLOBIN A1c 5.4 %
== END ==
LOC: M PLALAB 08:10
PROVIDERS: ATTEND Physician Assistant
DX: E11.9 Type 2 diabetes mellitus without complications (principal)

== ENCOUNTER → 2020-09-27 | Outpatient (CLI) | payer MEDICARE ==
[2020-09-27 13:57] LABS: HEMOGLOBIN A1c 5.4 %
[2020-09-27 14:03] LABS: ALBUMIN 3.5 GM/DL (3.2-5.2); ALT/SGPT 19 U/L (12-78); BILIRUBIN,TOTAL 0.6 MG/DL (0.2-1.0); BLOOD UREA NITROGEN 25 MG/DL (7-18); CALCIUM LEVEL 8.6 MG/DL (8.8-10.2); CARBON DIOXIDE LEVEL 26 MEQ/L (21-32); CHLORIDE LEVEL 106 MEQ/L (98-107); CHOLESTEROL LEVEL 106 MG/DL (<200); CHOLESTEROL RISK RATIO 2.355 (<5); FREE T4 1.08 NG/DL (0.76-1.46); GLOMERULAR FILTRATION RATE > 60.0 (>42); GLUCOSE, FASTING 83 MG/DL (70-100); HDL CHOLESTEROL 45 MG/DL (>40); LDL CHOLESTEROL 49 MG/DL (<100); NON-HDL-C 61 MG/DL; POTASSIUM SERUM 4.5 MEQ/L (3.5-5.1); SODIUM LEVEL 140 MEQ/L (136-145); TOTAL PROTEIN 6.2 GM/DL (6.4-8.2); TRIGLYCERIDES LEVEL 59 MG/DL (<150)
[2020-09-27 14:18] LABS: MALB URINE SIEMENS 13.5 MG/L; MAU/CREAT RATIO 12.8 MCG/MG (0.0-30.0)
[2020-09-28 23:07] LABS: PSA TOTAL 1.4 ng/mL (0.0-4.0)
== END ==
LOC: M PLALAB 11:54
PROVIDERS: ATTEND Family Medicine
DX: E11.9 Type 2 diabetes mellitus without complications (principal); E78.2 Mixed hyperlipidemia; N40.1 Benign prostatic hyperplasia with lower urinary tract symptoms

== ENCOUNTER → 2020-12-28 | Outpatient (CLI) | payer MEDICARE ==
[~2020-12-28] MED LIST changes: +OMEP40CA4 PO; -OMEP40CA97 PO
[2020-12-28 14:31] LABS: BASO % 0.6 % (0.0-1.0); EOS # 0.4 10^3/uL (0.0-0.5); EOS % 5.7 % (0.0-3.0); HEMATOCRIT 38.7 % (42.0-52.0); HEMOGLOBIN 13.1 g/dl (13.5-17.5); LYMPH # 1.7 10^3/uL (1.5-5.0); LYMPH % 25.9 % (24.0-44.0); MEAN CORPUSCULAR HEMOGLOBIN 34.5 pg (27.0-33.0); MEAN CORPUSCULAR HGB CONC 33.9 g/dl (32.0-36.5); MEAN CORPUSCULAR VOLUME 101.8 fl (80.0-96.0); MONO # 0.9 10^3/uL (0.0-0.8); MONO % 13.2 % (2.0-8.0); NEUTROPHILS # 3.6 10^3/uL (1.5-8.5); NEUTROPHILS % 54.1 % (36.0-66.0); PLATELET COUNT, AUTOMATED 162 10^3/uL (150-450); WHITE BLOOD COUNT 6.6 10^3/uL (4.0-10.0)
[2020-12-28 15:03] LABS: BLOOD UREA NITROGEN 16 MG/DL (7-18); CALCIUM LEVEL 8.4 MG/DL (8.8-10.2); CARBON DIOXIDE LEVEL 26 MEQ/L (21-32); CHLORIDE LEVEL 107 MEQ/L (98-107); GLOMERULAR FILTRATION RATE > 60.0 (>42); GLUCOSE, FASTING 95 MG/DL (70-100); IRON (FE) 67 UG/DL (65-175); POTASSIUM SERUM 4.9 MEQ/L (3.5-5.1); SODIUM LEVEL 138 MEQ/L (136-145); TOTAL IRON BINDING CAPACITY 216 UG/DL (250-450)
[2020-12-28 15:27] LABS: HEMOGLOBIN A1c 5.5 %
== END ==
LOC: M PLALAB 09:41
PROVIDERS: ATTEND Physician Assistant
DX: E11.9 Type 2 diabetes mellitus without complications (principal); D50.9 Iron deficiency anemia, unspecified

== ENCOUNTER → 2021-02-25 | Outpatient (CLI) | payer MEDICARE ==
[~2021-02-25] MED LIST changes: +ACET650T61 PO; +ECOT81TA5 PO; +TAMS1CAP17 PO
== END ==
LOC: M LABSMTC 09:06
PROVIDERS: ATTEND Anesthesiology
DX: Z01.812 Encounter for preprocedural laboratory examination (principal); Z20.822 Contact with and (suspected) exposure to COVID-19

== ENCOUNTER 2021-03-02 07:42 | Day surgery (SDC) | payer MEDICARE ==
[~2021-03-02] VITALS: Ht 180.3 cm; Wt 104.3 kg
[~2021-03-02 07:42] MED LIST changes: +NS 1,000 ML IV ONE
--- OUTSIDE RECORDS SUMMARY | 2021-03-02 07:47 | CCD | Continuity of Care Document ---
Author Author Alireza CHAUHAN D.O Organization Unknown Address [address] [facility] [address] [place] [address] Phone [phone] Care Team Providers Care Automatic Lathe Setter Name Role Phone Keturah Chauhan D.O. AUTM Valentin Serna D.O. AUTM [phone] [facility], [facility] AUTM Janak Arreguin M.D. AUTM [phone] Problems Active Problems Provider Date Essential hypertension Keturah Chauhan D.O. Onset: Gastroesophageal reflux disease Keturah Chauhan D.O. O nset: 12/27/2014 Skin sensation disturbance Keturah Chauhan D.O. Onset: 12/27/2014 Pain in limb Keturah Chauhan D.O. Onset: 2014 Difficulty breathing Keturah Chauhan D.O. Onset: 12/27 Disorder of eye Keturah Chauhan D.O. Onset: 2014 Essential hypertension Keturah Chauhan D.O. Onset: Impaired fasting glycemia Keturah Chauhan D.O. Onset: 02/01/2015 Patient post percutaneous transluminal coronary angiop fanta Murphy D.O. Onset: 02/01/2015 Pain in calf Keturah Chauhan D.O. Onset: 2014 Exophthalmos Keturah Chauhan D.O. Onset: 2014 Hypertensive left ventricular hypertrophy Keturah mendez D.O. Onset: 03/10/2015 Note: Echo 02/2015 EF 65%, grade II zamudio tolic dysfunction [place] Keturah Chauhan D.O. Onset: 2014 Ex-smoker Keturah Chauhan D.O. Onset: 2014 Constipation Keturah Chauhan D.O. Onset: 2014 Hemorrhoids without complication Keturah Chauhan D.O. Onset: 05/03/2015 Atrial fibrillation Keturah Chauhan D.O. Onset: 2015 Persistent atrial fibrillation Keturah Chauhan D.O. On set: 08/02/2015 Type 2 diabetes mellitus Keturah Chauhan D.O. Onset: 0 08/02/2015 Contact dermatitis Keturah Chauhan D.O. Onset: 2015 Persistent atrial fibrillation Keturah Chauhan D.O. On set: 11/07/2015 Iron deficiency anemia TENA Bear Onset: 6 Cough Keturah Chauhan D.O. Onset: 2016 Obstructive sleep apnea syndrome TENA Bear Onset: 08/06/2016 Nonvenomous insect bite of scapular region without inf ection Keturah Murphy D.O. Onset: 10/04/2016 Wheezing Keturah Chauhan D.O. Onset: 2016 Long-term current use of aspirin Keturah Chauhan D.O. Onset: 12/02/2018 Taking medication Keturah Chauhan D.O. Onset: 2018 Atherosclerotic heart disease of [place] coronary arter y without angina pectoris Keturah Chauhan D.O. Onset: 12/02/2018 Social History Type Date Description Comments Sex Unknown Tobacco Use Start: Unknown End: Unknown Quit Smoking Status Reviewed: 02/01/21 Quit ETOH Use Denies alcohol use Tobacco Use Start: Unknown End: Unknown Patient is a former smoker Recreational Drug Use Denies Drug Use Sun Exposure Does not use sunscreen Seat Belt/Car Seat Always uses seat belt Allergies, Adverse Reactions, Alerts Description No Known Drug Allergies Medications Active Medications SIG Qnty Indications Ordering Provide r Date Shingrix 50mcg/0.5ML Suspension Re c inject subcutaneous times one 1unBessie Rayo.O Ivis 02/01/2021 Furosemide 20mg Tablets Take One Tablet By Mouth Every Morning 90tabs Keturah Chauhan D.O. 1 07/05/2018 Tamsulosin HCL 0.4mg Capsules Take One Capsule By Mouth Every Day 90caps N40.1 Bessie Kendrick.O. 03/19/2019 Ferrous Gluconate 324(38Fe) mg Tab lets 1 by mouth every other day 30tabs D50.9 Bessie Kendrick .O. 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 05/29/2018 Lisinopril 20mg Tablets Take One Tablet By Mouth Every Day 90tabs Bessie Kendrick.O. 05/07 Oxygen 2 liters via N/C nightly Marcel CarlsonOIvis 08/02/2015 Nystatin-Triamcinolone 376140-7.1Unit/GM-% Cream apply thin layer topically externally on the left scalp for 7 days and as needed for flares 30gm L30.9 Marcel KendrickOIvis Colace 100mg Capsules 1 by mouth every day as needed 30caps K59.00 Bessie Kendrick.O. 05/[address] Take One Capsule By Mouth Every Day 90caps K21.9 Bessie Kendrick.O. 12/27/2014 Eliquis 5mg Tablets to be taken by mouth twice a day Unknown Atorvastatin Calcium 40mg Tablets Take One Tablet By Mouth Every Evening 90tabs Keturah Hopkins er, D.O. Proair HFA 108(90Base) mcg/Act Aer osol 2 puffs inhaled every 4 hours as needed 17gm J45.40 Keturah Ratliff D.O. Tylenol 8 Hour Arthritis Pain 650mg Tablets ER Unknown Medications Administered in Office Medication SIG Qnty Indications Ordering Provider Date Covid-19 vaccine, Unspecified Inj ection Unknown 07/03/2020 Covid-19 vaccine, Unspecified Inj ection Unknown 06/12/2020 Immunization Administration Single Or Co mbination Injection Keturah Chauhan D .O. 01/28/2020 Immunization Administration Single Or Co mbination Injection TENA Bear Immunization Administration Single Or Co mbination Injection TENA Bear Immunization Administration; each additi onal vaccine Injection TENA Baer 03/27/2016 Immunizations CPT Code Status Date Vaccine Lot # [id number] Given 01/28/2020 Influenza Virus Vaccine, Quadrivalent, Split, Preservative Free [id number] U-Flu Given 03/09/2019 Influenza,Unspecified U-Flu Given 02/12/2018 Influenza,Unspecified [id number] Given 02/12/2018 Pneumococcal Vaccine 23 [place] nt 2Yrs Or Older [id number] Given 02/06/2017 Influenza Vaccin e Quadrivalent Preser/Antibiotic Free Im Use [id number] Given 03/27/2016 Influenza Virus Vaccine, Quadrivalent, Split, Preservative Free [id number] Given 03/27/2016 Pneumococcal Con jugate Vaccine 13 Valent For Intramuscular Use [id number] Vital Signs Date Vital Result Comment 02/01/2021 8:14am BP Systolic 142 mmHg BP Diastolic 88 mmHg Height 69.8 inches 5'9.80" Weight 242.00 lb BMI (Body Mass Index) 34.9 kg/m2 Heart Rate 67 /min Respiratory Rate 22 /min Body Temperature 98.3 F O2 % BldC Oximetry 99 % [place] Body Weight 160 lb 11/24/2020 10:32am BP Systolic 134 mmHg BP Diastolic 74 mmHg Height 69.8 inches 5'9.80" Weight 232.50 lb BMI (Body Mass Index) 33.5 kg/m2 Heart Rate 75 /min Respiratory Rate 18 /min Body Temperature 98.8 F O2 % BldC Oximetry 97 % [place] Body Weight 160 lb Results Test Acquired Date Facility Test Result H/L Range Note Basic Metabolic Profile 12/28/2020 [facility] Outpatient T esting (Registration) [address] [place] [address] [phone] Glucose, Fasting 95 mg/dL Normal 70-100 Blood Urea Nitrogen 16 mg/dL Normal 7-18 Creatinine For GFR 1.10 mg/dL Normal 0.70-1.30 Glomerular Filtration Rate > 60.0 Normal >42 1 Sodium Level 138 mEq/L Normal 136-145 Potassium Serum 4.9 mEq/L Normal 3.5-5.1 Chloride Level 107 mEq/L Normal 98-107 Carbon Dioxide Level 26 mEq/L Normal 21-32 Anion Gap 5 mEq/L Low 8-16 Calcium Level 8.4 mg/dL Low 8.8-10.2 Total Iron Binding Capacit 12/28/2020 [facility] Outpatien t Testing (Registration) [address] [place] [phone] Iron (Fe) 67 g/dL Normal 65-175 Total Iron Binding Capacity 216 g/dL Low 250-450 Percent Saturation 31.0 % Normal 19.7-50.0 CBC With Differential 12/28/2020 [facility] Outpatient Yee ting (Registration) [address] [place] [address] [phone] White Blood Count 6.6 10 Normal 4.0-10.0 Red Blood Count 3.80 10 Low 4.30-6.10 Hemoglobin 13.1 g/dL Low 13.5-17.5 Hematocrit 38.7 % Low 42.0-52.0 Mean Corpuscular Volume 101.8 fl High 80.0-96.0 Mean Corpuscular Hemoglobin 34.5 pg High 27.0-33.0 Mean Corpuscular HGB Conc 33.9 g/dL Normal 32.0-36.5 Red Cell Distribution Width 13.0 % Normal 11.5-14.5 Platelet Count, Automated 162 10 Normal 150-450 Neutrophils % 54.1 % Normal 36.0-66.0 Lymph % 25.9 % Normal 24.0-44.0 [place] % 13.2 % High 2.0-8.0 Eos % 5.7 % High 0.0-3.0 Baso % 0.6 % Normal 0.0-1.0 Immature Granulocyte % 0.5 % Normal 0-3.0 Nucleated Red Blood Cell % 0.0 % Normal 0-0 Neutrophils # 3.6 10 Normal 1.5-8.5 Lymph # 1.7 10 Normal 1.5-5.0 [place] # 0.9 10 High 0.0-0.8 Eos # 0.4 10 Normal 0.0-0.5 Baso # 0.0 10 Normal 0.0-0.2 Hemoglobin A1c 12/28/2020 [facility] Outpatient Testi ng (Registration) [address] [place] [address] [phone] Hemoglobin A1c 5.5 % Normal 2 Estimated Average Glucose 111 mg/dL High 60-110 Hemoglobin A1c 09/27/2020 [facility] Outpatient Testi ng (Registration) [address] [place] [phone] Hemoglobin A1c 5.4 % Normal 3 Estimated Average Glucose 108 mg/dL Normal 60-110 Comprehensive Metabolic Profil 09/27/2020 [facility] Outpa tient Testing (Registration) [address] [place] [address] [phone] Glucose, Fasting 83 mg/dL Normal 70-100 Blood Urea Nitrogen 25 mg/dL High 7-18 Creatinine For GFR 1.00 mg/dL Normal 0.70-1.30 Glomerular Filtration Rate > 60.0 Normal >42 4 Sodium Level 140 mEq/L Normal 136-145 Potassium Serum 4.5 mEq/L Normal 3.5-5.1 Chloride Level 106 mEq/L Normal 98-107 Carbon Dioxide Level 26 mEq/L Normal 21-32 Anion Gap 8 mEq/L Normal 8-16 Calcium Level 8.6 mg/dL Low 8.8-10.2 Ast/Sgot 16 U/L Normal 7-37 Alt/SGPT 19 U/L Normal 12-78 Alkaline Phosphatase 56 U/L Normal 45-117 Bilirubin,Total 0.6 mg/dL Normal 0.2-1.0 Total Protein 6.2 GM/DL Low 6.4-8.2 Albumin 3.5 GM/DL Normal 3.2-5.2 Albumin/Globulin Ratio 1.3 Normal Lipid Panel 09/27/2020 [facility] Outpatient Testi ng (Registration) [address] [place], [place] [id number] [phone] Triglycerides Level 59 mg/dL Normal <150 Cholesterol Level 106 mg/dL Normal <200 HDL Cholesterol 45 mg/dL Normal >40 LDL Cholesterol 49 mg/dL Normal <100 Non-HDL-C 61 mg/dL Normal Cholesterol Risk Ratio 2.355 Normal <5 Laboratory test finding 09/27/2020 [facility] Outpatient T esting (Registration) [address] [place] [phone] Thyroid Stimulating Hormone 2.560 uIU/ML Normal 0. 358-3.740 Free T4 1.08 ng/dL Normal 0.76-1.46 Microalbumin Random 09/27/2020 [facility] Outpatient Testi ng (Registration) [address] [place] [address] [phone] Creatinine, Urine 105.0 mg/dL Normal Malb Urine Siemens 13.5 mg/L Normal Jude/Creat Ratio 12.8 MCG/MG Normal 0.0-30.0 5 PSA Free & Total 09/27/2020 [facility] Outpatient Testi ng (Registration) [address] [place] [address] [phone] PSA Total 1.4 ng/mL Normal 0.0-4.0 6 PSA Comment (SEE NOTE) Normal . 7 1 Units are mL/min/1.73 m2 Chronic Kidney Disease Staging per NKF: Stage I & II GFR >=60 Normal to Mildly Decreased Stage III GFR 30-59 Moderately Decreased Stage IV GFR 15-29 Severely Decreased Stage V GFR <15 Very Little GFR Left ESRD GFR <15 on MATERIAL YARD CLERK 2 REFERENCE RANGES: <=5.6% NORMAL 5.7-6.4% SUGGESTS IMPAIRED GLUCOSE META BOLISM/PREDIABETIC >= 6.5% ABNORMAL 3 REFERENCE RANGES: <=5.6% NORMAL 5.7-6.4% SUGGESTS IMPAIRED GLUCOSE META BOLISM/PREDIABETIC >= 6.5% ABNORMAL 4 Units are mL/min/1.73 m2 Chronic Kidney Disease Staging per NKF: Stage I & II GFR >=60 Normal to Mildly Decreased Stage III GFR 30-59 Moderately Decreased Stage IV GFR 15-29 Severely Decreased Stage V GFR <15 Very Little GFR Left ESRD GFR <15 on MATERIAL YARD CLERK 5 THE STATELESS DIABETES ASSOCI ATION STATES THAT MICROALBUMINURIA IS PRESENT IF THE MICROALBUMIN/CREATININE RATIO EXCEEDS 30 MCG/MG. THE THRESHOLD FOR CLINICAL ALBUMINURIA IS REACHED AT 300 MCG/MG. THE CLASSIFICATION OF A PATIENT SHOULD BE BASED UPON AT LEAST 2 OF 3 ABNORMAL RESULTS ON SPECIMENS COLLECTED WITHIN A 3 TO 6 MONTH TIME FRAME. 6 Jon ECLIA methodology. . According to the [place] [employer], Serum PSA should decrease and remain at undetectable levels after radical prostatectomy. The AUA defines biochemical recurrence as an initial PSA value 0.2 ng/mL or greater followed by a subsequent confirmatory PSA value 0.2 ng/mL or greater. Values obtained with different assay methods or kits cannot be used interchangeably. Results cannot be interpreted as absolute evidence of the presence or absence of malignant disease. 7 . The percent free PSA is performed on a reflex basis only when the total PSA is between 4.0 and 10.0 ng/mL. Performed at: RN - [facility] [address] [id number] Wildlife Protector: Dianna Dwyer MD, Phone: [phone] Procedures Date Code Description Status 02/01/2021 12974 Office/Outpatient Established Mo d MDM 30-39 Min Completed 11/24/2020 99705 Office/Outpatient Established Lo w MDM 20-29 Min Completed Medical Devices Description No Information Available Encounters Type Date Location Provider Dx Diagnosis Office Visit 02/01/2021 8:10a [facility] Raphael Chauhan D.O. E11.9 Type 2 diabetes mellitus wit hout complications D50.9 Iron deficiency anemia, unsp ecified Z86.010 Personal history of colonic polyps J45.40 Moderate persistent asthma, uncomplicated I48.11 Longstanding persistent atri al fibrillation Z79.01 care home (current) use of a nticoagulants G47.33 Obstructive sleep apnea (mat lt) (pediatric) I25.10 Athscl heart disease of dharm[place] ve coronary artery w/o ang pctrs Z87.891 Personal history of nicotine dependence Z79.899 Other custodial (current) dr rios therapy Z79.82 watermaster (current) use of a spirin Z79.84 watermaster (current) use of o ral hypoglycemic drugs I10 Essential (primary) hyperten gage K21.9 Gastro-esophageal reflux dis ease without esophagitis E78.2 Mixed hyperlipidemia M17.0 Bilateral primary osteoarthr itis of knee H61.22 Impacted cerumen, left ear Office Visit 11/24/2020 10:40a [facility] Keturah Chauhan D.O. D50.9 Iron deficiency anemia, unsp ecified Z86.010 Personal history of colonic polyps Office Visit 10/31/2020 8:40a [facility] TENA Bear Z00.00 Encntr for general adult med ical exam w/o abnormal findings E11.9 Type 2 diabetes mellitus wit hout complications N40.1 Benign prostatic hyperplasia with lower urinary tract symp J45.40 Moderate persistent asthma, uncomplicated I48.11 Longstanding persistent atri al fibrillation Z79.01 watermaster (current) use of a nticoagulants D50.9 Iron deficiency anemia, unsp ecified G47.33 Obstructive sleep apnea (mat lt) (pediatric) I25.10 Athscl heart disease of [place]harm[place] ve coronary artery w/o ang pctrs Z87.891 Personal history of nicotine dependence Z12.11 Encounter for screening for malignant neoplasm of colon Assessments Date Code Description Provider 02/01/2021 E11.9 Type 2 diabetes mellitus without complications Keturah Murphy D.O. 02/01/2021 D50.9 Iron deficiency anemia, unspecif ied Bessie Kendrick.O. 02/01/2021 Z86.010 Personal history of colonic poly ps Keturah Chauhan D.O. 02/01/2021 J45.40 Moderate persistent asthma, unco mplicated Keturah Murphy D.O. 02/01/2021 I48.11 Longstanding persistent atrial f ibrillation Keturah Murphy D.O. 02/01/2021 Z79.01 watermaster (current) use of antic oagulants Keturah Murphy D.O. 02/01/2021 G47.33 Obstructive sleep apnea (adult) (pediatric) Bessie Jett.O. 02/01/2021 I25.10 Atherosclerotic heart disease of [place] coronary artery with Keturah Chauhan D.O. 02/01/2021 Z87.891 Personal history of nicotine dep endence Keturah Chauhan, D.O. 02/01/2021 Z79.899 Other custodial (current) drug t herapy Keturah Chauhan D.O. 02/01/2021 Z79.82 watermaster (current) use of aspir in Keturah Chauhan, D.O. 02/01/2021 Z79.84 care home (current) use of oral hypoglycemic drugs Keturah Chauhan D.O. 02/01/2021 I10 Essential (primary) hypertension Keturah Chauhan D.O. 02/01/2021 K21.9 Gastro-esophageal reflux disease without esophagitis Keturah Chauhan D.O. 02/01/2021 E78.2 Mixed hyperlipidemia Keturah Coulter, D.O. 02/01/2021 M17.0 Bilateral primary osteoarthritis of knee Keturah Chauhan D.O. 02/01/2021 H61.22 Impacted cerumen, left ear Keturah Chauhan, D.O. 11/24/2020 D50.9 Iron deficiency anemia, unspecif ied Keturah Chauhan D.O. 11/24/2020 Z86.010 Personal history of colonic poly ps Keturah Chauhan D.O. 10/31/2020 Z00.00 Encounter for genera l adult medical examination without abnormal findings TENA Bear 10/31/2020 E11.9 Type 2 diabetes mellitus without complications TENA Bear 10/31/2020 N40.1 Benign prostatic hyperplasia wit h lower urinary tract symptoms TENA Bear 10/31/2020 J45.40 Moderate persistent asthma, unco mplicated TENA Bear 10/31/2020 I48.11 Longstanding persistent atrial f ibrillation TENA Bear 10/31/2020 Z79.01 care home (current) use of antic oagulants TENA Bear 10/31/2020 D50.9 Iron deficiency anemia, unspecif ied TENA Bear 10/31/2020 G47.33 Obstructive sleep apnea (adult) (pediatric) TENA Bear 10/31/2020 I25.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 THis is a 80 year old male w ith positive cologuard result. Please evaluate and treat. Closed 12/13/[address] [place] [address] [phone]
--- OUTSIDE RECORDS SUMMARY | 2021-03-02 07:47 | CCD | Continuity of Care Document ---
Author Author Alireza JUNG PA Organization Unknown Address [address] [place] [address] 6 [address] [place] [address] Phone [phone] Care Team Providers Care Freight Sales Broker Name Role Phone Keturah Chauhan D.O. AUTM Valentin Serna D.O. AUTM [phone] Formerly [facility] Aud[facility] & PT, [facility] AUTM [phone] Janak Arreguin M.D. AUTM [phone] Problems Active Problems Provider Date Essential hypertension [...] D.O. Onset: 2018 Atherosclerotic heart disease of [place] coronary arter y without angina pectoris Keturah Chauhan D.O. Onset: 12/02/2018 Social History Type Date Description Comments Sex Unknown Tobacco Use Start: Unknown End: Unknown Quit Smoking Status Reviewed: 10/30/20 Quit ETOH Use Denies alcohol use Tobacco Use Start: Unknown End: Unknown Patient is a former smoker Recreational Drug Use Denies Drug Use Sun Exposure Does not use sunscreen Seat Belt/Car Seat Always uses seat belt Allergies, Adverse Reactions, Alerts Description No Known Drug Allergies Medications Active Medications SIG Qnty Indications Ordering Provide r Date Furosemide 20mg Tablets Take One Tablet By Mouth Every Morning 90tabs Marcel KendrickOIvis 1 07/05/2018 Tamsulosin HCL 0.4mg Capsules Take One Capsule By Mouth Every Day 90caps N40.1 Bessie Kendrick.O. 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 05/[address] Take One Capsule By Mouth Every Day 90caps K21.9 Bessie Kendrick.O. 12/27/2014 Eliquis 5mg Tablets to be taken by mouth twice a day Unknown Atorvastatin Calcium 40mg Tablets Take One Tablet By Mouth Every Evening 90tabs Keturah mendez, D.O. Proair HFA 108(90Base) mcg/Act Aer osol 2 puffs inhaled every 4 hours as needed 17gm J45.40 Bessie Sams.O. Medications Administered in Office Medication SIG Qnty Indications Ordering Provider Date Covid-19 vaccine, Unspecified Inj ection Unknown 07/03/2020 Covid-19 vaccine, Unspecified Inj ection Unknown 06/12/2020 Immunization Administration Single Or Co mbination Injection Bessie Kendrick .O. 01/28/2020 Immunization Administration Single Or Co mbination Injection TENA Bear Immunization Administration Single Or Co mbination Injection TENA Bear Immunization Administration; each additi onal vaccine Injection TENA Baer 03/27/2016 Immunizations CPT Code Status Date Vaccine Lot # [id number] Given 01/28/2020 Influenza Virus Vaccine, Quadrivalent, Split, Preservative Free [id number] U-Flu Given 03/09/2019 Influenza,Unspecified U-Flu Given 02/12/2018 Influenza,Unspecified [id number] Given 02/12/2018 Pneumococcal Vaccine 23 [place] nt 2Yrs Or Older 17576 Given 02/06/2017 Influenza Vaccin e Quadrivalent Preser/Antibiotic Free Im Use [id number] Given 03/27/2016 Influenza Virus Vaccine, Quadrivalent, Split, Preservative Free [id number] Given 03/27/2016 Pneumococcal Con jugate Vaccine 13 Valent For Intramuscular Use [id number] Vital Signs Date Vital Result Comment 11/24/2020 10:32am BP Systolic 134 mmHg BP Diastolic 74 mmHg Height 69.8 inches 5'9.80" Weight 232.50 lb BMI (Body Mass Index) 33.5 kg/m2 Heart Rate 75 /min Respiratory Rate 18 /min Body Temperature 98.8 F O2 % BldC Oximetry 97 % [place] Body Weight 160 lb 10/31/2020 8:31am BP Systolic 128 mmHg BP Diastolic 72 mmHg Height 69.8 inches 5'9.80" Weight 235.38 lb BMI (Body Mass Index) 34.0 kg/m2 Heart Rate 80 /min Respiratory Rate 20 /min Body Temperature 98.3 F O2 % BldC Oximetry 97 % [place] Body Weight 160 lb Results Test Acquired Date Facility Test Result H/L Range Note Basic Metabolic Profile 12/28/2020 [facility] Outpatient T esting (Registration) [address] [place] [address] [phone] Glucose, Fasting 95 mg/dL Normal 70-100 Blood [...] Low 8.8-10.2 Total Iron Binding Capacit 12/28/2020 [facility] Outpatien t Testing (Registration) [address] [place] [address] [phone] Iron (Fe) 67 g/dL Normal 65-175 Total Iron Binding Capacity 216 g/dL Low 250-450 Percent Saturation 31.0 % Normal 19.7-50.0 CBC With Differential 12/28/2020 [facility] Outpatient Yee ting (Registration) [address] [place] [address] [phone] White Blood Count 6.6 10 Normal 4.0-10.0 [...] 36.0-66.0 Lymph % 25.9 % Normal 24.0-44.0 [place] % 13.2 % High 2.0-8.0 Eos % 5.7 % High 0.0-3.0 Baso % 0.6 % Normal 0.0-1.0 Immature Granulocyte % 0.5 % Normal 0-3.0 Nucleated Red Blood Cell % 0.0 % Normal 0-0 Neutrophils # 3.6 10 Normal 1.5-8.5 Lymph # 1.7 10 Normal 1.5-5.0 [place] # 0.9 10 High 0.0-0.8 Eos # 0.4 10 Normal 0.0-0.5 Baso # 0.0 10 Normal 0.0-0.2 Hemoglobin A1c 12/28/2020 [facility] Outpatient Testi ng (Registration) [address] [place] [address] [phone] Hemoglobin A1c 5.5 % Normal 2 Estimated Average Glucose 111 mg/dL High 60-110 Hemoglobin A1c 09/27/2020 [facility] Outpatient Testi ng (Registration) [address] [place] [address] [phone] Hemoglobin A1c 5.4 % Normal 3 Estimated Average Glucose 108 mg/dL Normal 60-110 Comprehensive Metabolic Profil 09/27/2020 [facility] Outpa tient Testing (Registration) [address] [place] [address] [phone] Glucose, Fasting 83 mg/dL Normal 70-100 Blood [...] Albumin/Globulin Ratio 1.3 Normal Lipid Panel 09/27/2020 [facility] Outpatient Testi ng (Registration) [address] [place] [address] [phone] Triglycerides Level 59 mg/dL Normal <150 Cholesterol Level 106 mg/dL Normal <200 HDL Cholesterol 45 mg/dL Normal >40 LDL Cholesterol 49 mg/dL Normal <100 Non-HDL-C 61 mg/dL Normal Cholesterol Risk Ratio 2.355 Normal <5 Laboratory test finding 09/27/2020 [facility] Outpatient T esting (Registration) [address] [place] [address] [phone] Thyroid Stimulating Hormone 2.560 uIU/ML Normal 0. 358-3.740 Free T4 1.08 ng/dL Normal 0.76-1.46 Microalbumin Random 09/27/2020 [facility] Outpatient Testi ng (Registration) [address] [place] [address] [phone] Creatinine, Urine 105.0 mg/dL Normal Malb Urine Siemens 13.5 mg/L Normal Jude/Creat Ratio 12.8 MCG/MG Normal 0.0-30.0 5 PSA Free & Total 09/27/2020 [facility] Outpatient Testi ng (Registration) [address] [place] [address] [phone] PSA Total 1.4 ng/mL Normal 0.0-4.0 6 PSA Comment (SEE NOTE) Normal . 7 Basic Metabolic Profile 07/05/2020 [facility] Outpatient T esting (Registration) [address] [place] [address] [phone] Glucose, Fasting 104 mg/dL High 70-100 Blood Urea Nitrogen 13 mg/dL Normal 7-18 Creatinine For GFR 1.03 mg/dL Normal 0.70-1.30 Glomerular Filtration Rate > 60.0 Normal >42 8 Sodium Level 140 mEq/L Normal 136-145 Potassium Serum 4.3 mEq/L Normal 3.5-5.1 Chloride Level 105 mEq/L Normal 98-107 Carbon Dioxide Level 30 mEq/L Normal 21-32 Anion Gap 5 mEq/L Low 8-16 Calcium Level 8.7 mg/dL Low 8.8-10.2 Hemoglobin A1c 07/05/2020 [facility] Outpatient Testi ng (Registration) [address] [place] [address] [phone] Hemoglobin A1c 5.4 % Normal 9 Estimated Average Glucose 108 mg/dL Normal 60-110 1 Units are mL/min/1.73 m2 Chronic Kidney Disease Staging per NKF: Stage I & II GFR >=60 Normal to Mildly Decreased Stage III GFR 30-59 Moderately Decreased Stage IV GFR 15-29 Severely Decreased Stage V GFR <15 Very Little GFR Left ESRD GFR <15 on CARBON PAPER MACHINE OPERATOR 2 REFERENCE RANGES: <=5.6% NORMAL 5.7-6.4% SUGGESTS [...] Little GFR Left ESRD GFR <15 on CARBON PAP[employer] MACHINE OPERATOR 5 THE [employer] ATION STATES THAT MICROALBUMINURIA IS PRESENT IF THE MICROALBUMIN/CREATININE RATIO EXCEEDS 30 MCG/MG. THE THRESHOLD FOR CLINICAL ALBUMINURIA IS REACHED AT 300 MCG/MG. THE CLASSIFICATION OF A PATIENT SHOULD BE BASED UPON AT LEAST 2 OF 3 ABNORMAL RESULTS ON SPECIMENS COLLECTED WITHIN A 3 TO 6 MONTH TIME FRAME. 6 Jon ECLIA methodology. . According to the [employer], Serum PSA should decrease and [...] 10.0 ng/mL. Performed at: RN - [facility] [address] [id number] Subeditor: Dianna Dwyer MD, Phone: [phone] Units are mL/min/1.73 m2 Chronic Kidney Disease Staging per NKF: Stage I & II GFR >=60 Normal to Mildly Decreased Stage III GFR 30-59 Moderately Decreased Stage IV GFR 15-29 Severely Decreased Stage V GFR <15 Very Little GFR Left ESRD GFR <15 on CARBON PAPER MACHINE OPERATOR 9 REFERENCE RANGES: <=5.6% NORMAL 5.7-6.4% SUGGESTS IMPAIRED GLUCOSE META BOLISM/PREDIABETIC >= 6.5% ABNORMAL Procedures Date Code Description Status 11/24/2020 08238 Office/Outpatient Established Lo w MDM 20-29 Min Completed 07/27/2020 00594 Office/Outpatient Established Mo d MDM 30-39 Min Completed 07/27/2020 99471 Remove Impacted Cerumen Complete d Medical Devices Description No Information Available Encounters Type Date Location Provider Dx Diagnosis Office Visit 11/24/2020 10:40a Family [facility] Keturah Chauhan D.O. D50.9 Iron deficiency anemia, unsp ecified Z86.010 Personal history of colonic polyps Office Visit 10/31/2020 8:40a Family [facility] TENA Bear Z00.00 Encntr for general adult med ical exam w/o abnormal findings E11.9 Type 2 diabetes mellitus wit hout complications N40.1 Benign prostatic hyperplasia with lower urinary tract symp J45.40 Moderate persistent asthma, uncomplicated I48.11 Longstanding persistent atri al fibrillation Z79.01 senior care (current) use of a nticoagulants D50.9 Iron deficiency anemia, unsp ecified G47.33 Obstructive sleep apnea (mat lt) (pediatric) I25.10 Athscl heart disease of [place] coronary artery w/o ang pctrs Z87.891 Personal history of nicotine dependence Z12.11 Encounter for screening for malignant neoplasm of colon Office Visit 07/27/2020 8:20a [facility] Marcel KendrickO. 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 Z79.84 senior care (current) use of o ral hypoglycemic drugs I10 Essential (primary) hyperten gage K21.9 Gastro-esophageal reflux dis ease without esophagitis E78.2 Mixed hyperlipidemia H61.22 Impacted cerumen, left ear Assessments Date Code Description Provider 11/24/2020 D50.9 Iron deficiency anemia, unspecif ied Bessie Kendrick.OIvis 11/24/2020 Z86.010 Personal history of colonic poly ps Keturah Chauhan D.OIvis 10/31/2020 Z00.00 Encounter for genera l adult medical examination without abnormal findings TENA Bear 10/31/2020 E11.9 Type 2 diabetes mellitus without complications TENA Bear 10/31/2020 N40.1 Benign prostatic hyperplasia wit h lower urinary tract symptoms TENA Bear 10/31/2020 J45.40 Moderate persistent asthma, unco mplicated TENA Bear 10/31/2020 I48.11 Longstanding persistent atrial f ibrillation TENA Bear 10/31/2020 Z79.01 senior care (current) use of antic oagulants TENA Bear 10/31/2020 D50.9 Iron deficiency anemia, unspecif ied TENA Bear 10/31/2020 G47.33 Obstructive sleep apnea (adult) (pediatric) TENA Bear 10/31/2020 I25.10 Atherosclerotic heart disease of [place] coronary artery with TENA Bear 10/31/2020 Z87.891 Personal history of nicotine dep endence TENA Bear 10/31/2020 Z12.11 Encounter for screening for vignesh gnant neoplasm of colon TENA Bear 07/27/2020 E11.9 Type 2 diabetes mellitus without complications Bessie Jett.OIvis 07/27/2020 N40.1 Benign prostatic hyperplasia wit h lower urinary tract symptoms Bessie Kendrick.OIvis 07/27/2020 J45.40 Moderate persistent asthma, unco mplicated Bessie Jett.OIvis 07/27/2020 I48.11 Longstanding persistent atrial f ibrillation Marcel JettOIvis 07/27/2020 Z79.01 senior care (current) use of antic oagulants Marcel JettOIvis 07/27/2020 D50.9 Iron deficiency anemia, unspecif ied Marcel KendrickOIvis 07/27/2020 G47.33 Obstructive sleep apnea (adult) (pediatric) Marcel JettOIvis 07/27/2020 I25.10 Atherosclerotic heart disease of [place] coronary artery with Bessie Kendrick.O. 07/27/2020 Z87.891 Personal history of nicotine dep endence Marcel KendrickO. 07/27/2020 Z79.899 Other dedicated intermodal truck driver (current) drug t herapy Marcel KendrickO. 07/27/2020 Z79.82 senior care (current) use of aspir in Marcel KendrickOIvis 07/27/2020 Z79.84 senior care (current) use of oral hypoglycemic drugs Bessie Kendrick.OIvis 07/27/2020 I10 Essential (primary) hypertension Keturah Chauhan D.O. 07/27/2020 K21.9 Gastro-esophageal reflux disease without esophagitis Keturah Chauhan D.O. 07/27/2020 E78.2 Mixed hyperlipidemia Keturah Coulter D.O. 07/27/2020 H61.22 Impacted cerumen, left ear Keturah Chauhan D.O. Plan of Treatment Future Appointment(s):* 02/01/2021 8:10 am - Keturah Chauhan D.O. at [facility] Functional Status Description No Information Available Mental Status Description No Information Available Referrals Refer to Reason for Referral Status Appt Date Janak Arreguin M.D. THis is a 80 year old male w ith positive cologuard result. Please evaluate and treat. Closed 12/13/2020 [address] [place] [id number] [phone]
--- OUTSIDE RECORDS SUMMARY | 2021-03-02 07:47 | CCD | Continuity of Care Document ---
Author Author Alireza CHAUHAN D.O Organization Unknown Address [address] [facility] [address] [place] [address] Phone [phone] Care Team Providers Care Prescriptionist Name Role Phone Keturah Chauhan D.O. AUTM Valentin Serna D.O. AUTM [phone] Formerly [facility], [facility] AUTM Janak Arreguin M.D. AUTM [phone] Problems Active Problems Provider Date Essential hypertension [...] D.O. Onset: 2018 Atherosclerotic heart disease of [place] coronary arter y without angina pectoris Keturah [...] via N/C nightly Marcel CarlsonOIvis 08/02/2015 Nystatin-Triamcinolone 623218-9.1Unit/GM-% Cream apply thin layer topically externally on [...] Immunization Administration Single Or Co mbination Injection TEAN Bear Immunization Administration Single Or Co mbination Injection TENA Bear Immunization Administration; each additi onal vaccine Injection TENA Baer 03/27/2016 Immunizations CPT Code Status Date Vaccine Lot # [id number] Given 01/28/2020 Influenza Virus Vaccine, Quadrivalent, Split, Preservative Free [id number] U-Flu Given 03/09/2019 Influenza,Unspecified U-Flu Given 02/12/2018 Influenza,Unspecified 20610 Given 02/12/2018 Pneumococcal Vaccine 23 [place] nt 2Yrs Or Older 11761 Given 02/06/2017 Influenza Vaccin e Quadrivalent Preser/Antibiotic Free Im Use [id number] 44696 Given 03/27/2016 Influenza Virus Vaccine, Quadrivalent, Split, Preservative Free [id number] Given 03/27/2016 Pneumococcal Con jugate Vaccine 13 Valent For Intramuscular Use [id number] Vital Signs Date Vital Result Comment 02/01/2021 8:14am BP Systolic 142 mmHg BP Diastolic 88 mmHg Height 69.8 inches 5'9.80" Weight 242.00 lb BMI (Body Mass Index) 34.9 kg/m2 Heart Rate 67 /min Respiratory Rate 22 /min Body Temperature 98.3 F O2 % BldC Oximetry 99 % [place] Body Weight 160 lb 11/24/2020 10:32am BP Systolic 134 mmHg BP Diastolic 74 mmHg Height 69.8 inches 5'9.80" Weight 232.50 lb BMI (Body Mass Index) 33.5 kg/m2 Heart Rate 75 /min Respiratory Rate 18 /min Body Temperature 98.8 F O2 % BldC Oximetry 97 % [place] Body Weight 160 lb Results Test Acquired Date Facility Test Result H/L Range Note Basic Metabolic Profile 12/28/2020 [facility] Outpatient T esting (Registration) [address] [place] [address] [phone] Glucose, Fasting 95 mg/dL Normal 70-100 Blood [...] Low 8.8-10.2 Total Iron Binding Capacit 12/28/2020 [facility] Outpatien t Testing (Registration) [address] [place] [address] [phone] Iron (Fe) 67 g/dL Normal 65-175 Total Iron Binding Capacity 216 g/dL Low 250-450 Percent Saturation 31.0 % Normal 19.7-50.0 CBC With Differential 12/28/2020 [facility] Outpatient Yee ting (Registration) [address] [place] [address] [phone] White Blood Count 6.6 10 Normal 4.0-10.0 [...] 36.0-66.0 Lymph % 25.9 % Normal 24.0-44.0 [place] % 13.2 % High 2.0-8.0 Eos % 5.7 % High 0.0-3.0 Baso % 0.6 % Normal 0.0-1.0 Immature Granulocyte % 0.5 % Normal 0-3.0 Nucleated Red Blood Cell % 0.0 % Normal 0-0 Neutrophils # 3.6 10 Normal 1.5-8.5 Lymph # 1.7 10 Normal 1.5-5.0 [place] # 0.9 10 High 0.0-0.8 Eos # 0.4 10 Normal 0.0-0.5 Baso # 0.0 10 Normal 0.0-0.2 Hemoglobin A1c 12/28/2020 [facility] Outpatient Testi ng (Registration) [address] [place] [address] [phone] Hemoglobin A1c 5.5 % Normal 2 Estimated Average Glucose 111 mg/dL High 60-110 Hemoglobin A1c 09/27/2020 [facility] Outpatient Testi ng (Registration) [address] [place] [address] [phone] Hemoglobin A1c 5.4 % Normal 3 Estimated Average Glucose 108 mg/dL Normal 60-110 Comprehensive Metabolic Profil 09/27/2020 [facility] Outpa tient Testing (Registration) [address] [place] [address] [phone] Glucose, Fasting 83 mg/dL Normal 70-100 Blood [...] Albumin/Globulin Ratio 1.3 Normal Lipid Panel 09/27/2020 [facility] Outpatient Testi ng (Registration) [address] [place], [place] [id number] [phone] Triglycerides Level 59 mg/dL Normal <150 Cholesterol Level 106 mg/dL Normal <200 HDL Cholesterol 45 mg/dL Normal >40 LDL Cholesterol 49 mg/dL Normal <100 Non-HDL-C 61 mg/dL Normal Cholesterol Risk Ratio 2.355 Normal <5 Laboratory test finding 09/27/2020 [facility] Outpatient T esting (Registration) [address] [place] [address] [phone] Thyroid Stimulating Hormone 2.560 uIU/ML Normal 0. 358-3.740 Free T4 1.08 ng/dL Normal 0.76-1.46 Microalbumin Random 09/27/2020 [facility] Outpatient Testi ng (Registration) [address] [place] [address] [phone] Creatinine, Urine 105.0 mg/dL Normal Malb Urine Siemens 13.5 mg/L Normal Jude/Creat Ratio 12.8 MCG/MG Normal 0.0-30.0 5 PSA Free & Total 09/27/2020 [facility] Outpatient Testi ng (Registration) [address] [place] [address] [phone] PSA Total 1.4 ng/mL Normal 0.0-4.0 6 PSA Comment (SEE NOTE) Normal . 7 1 Units are mL/min/1.73 m2 Chronic Kidney Disease Staging per NKF: Stage I & II GFR >=60 Normal to Mildly Decreased Stage III GFR 30-59 Moderately Decreased Stage IV GFR 15-29 Severely Decreased Stage V GFR <15 Very Little GFR Left ESRD GFR <15 on ALL TERRAIN VEHICLE RACER 2 REFERENCE RANGES: <=5.6% NORMAL 5.7-6.4% SUGGESTS [...] Little GFR Left ESRD GFR <15 on ALL TERRAIN VEHICLE RACER 5 THE [place]IZ[place] [employer] ATION STATES THAT MICROALBUMINURIA IS PRESENT IF THE MICROALBUMIN/CREATININE RATIO EXCEEDS 30 MCG/MG. THE THRESHOLD FOR CLINICAL ALBUMINURIA IS REACHED AT 300 MCG/MG. THE CLASSIFICATION OF A PATIENT SHOULD BE BASED UPON AT LEAST 2 OF 3 ABNORMAL RESULTS ON SPECIMENS COLLECTED WITHIN A 3 TO 6 MONTH TIME FRAME. 6 Jon ECLIA methodology. . According to the [place] [employer], Serum PSA should decrease and [...] 10.0 ng/mL. Performed at: RN - [facility] [address] [id number] Hand Coper: Dianna Dwyer MD, Phone: [phone] Procedures Date Code Description Status 02/01/2021 36621 Office/Outpatient Established Mo d MDM 30-39 Min Completed 11/24/2020 90870 Office/Outpatient Established Lo w MDM 20-29 Min Completed Medical Devices Description No Information Available Encounters Type Date Location Provider Dx Diagnosis Office Visit 02/01/2021 8:10a [facility] Raphael Chauhan D.O. 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 D50.9 Iron deficiency anemia, unsp ecified Z86.010 Personal history of colonic polyps Office Visit 10/31/2020 8:40a [facility] TENA Bear Z00.00 Encntr for general adult med ical exam w/o abnormal findings E11.9 Type 2 diabetes mellitus wit hout complications N40.1 Benign prostatic hyperplasia with lower urinary tract symp J45.40 Moderate persistent asthma, uncomplicated I48.11 Longstanding persistent atri al fibrillation Z79.01 meterman (current) use of a nticoagulants D50.9 Iron [...] f ibrillation Keturah Murphy D.O. 02/01/2021 Z79.01 meterman (current) use of antic oagulants Keturah Murphy D.O. 02/01/2021 G47.33 Obstructive sleep apnea (adult) (pediatric) Bessie Jett.O. 02/01/2021 I25.10 Atherosclerotic heart disease of [place] coronary artery with Keturah Chauhan D.O. 02/01/2021 Z87.891 Personal history of nicotine dep endence Keturah Chauhan, D.O. 02/01/2021 Z79.899 Other fdc (current) drug t herapy Keturah Chauhan D.O. 02/01/2021 Z79.82 meterman (current) use of aspir in Keturah Chauhan, D.O. 02/01/2021 Z79.84 prison (current) use of oral hypoglycemic drugs Keturah [...] atrial f ibrillation TENA Bear 10/31/2020 Z79.01 prison (current) use of antic oagulants TENA Bear 10/31/2020 D50.9 Iron deficiency anemia, unspecif ied TENA Bear 10/31/2020 G47.33 Obstructive sleep apnea (adult) (pediatric) TENA Bear 10/31/2020 I25.10 Atherosclerotic heart disease of [place] coronary artery with TENA Bear 10/31/2020 Z87.891 Personal history of nicotine dep endence TENA Bear 10/31/2020 Z12.11 Encounter for screening for vignesh gnant neoplasm of colon TENA Bear Plan of Treatment Future Appointment(s):* 05/04/2021 8:40 am - TENA Bear at [facility] 02/01/2021 - Keturah Chauhan D.O.* E11.9 Type 2 diabetes mellitus without complications* New Labs:* Comprehensive Metabolic Profil, Ordered: 02/01/21 * Lipid Panel, Ordered: 02/01/21 * Comments:* Hemoglobin A1c is 5.5 * Follow up:* 3 months with Noreen * D50.9 Iron deficiency anemia, unspecified* New Labs:* CBC With Differential, Ordered: 02/01/21 * Ferritin, Ordered: 02/01/21 * Total Iron Binding Capacit, Ordered: 02/01/21 * Comments:* stable * Z86.010 Personal history of colonic polyps* Comments:* scheduled for colonoscopy March 02 * J45.40 Moderate persistent asthma, uncomplicated* Comments:* He is on Breo and doing well * I48.11 Longstanding persistent atrial fibrillation* Comments:* rate controlled and continues on eliquis * Z79.01 meterman (current) use of anticoagulants * G47.33 Obstructive sleep apnea (adult) (pediatric)* Comments:* He is not wearing his CPAP anymore because it is bothersome to his eyes. He is willing to wear nightly oxygen. We will try to set this up * I25.10 Atherosclerotic heart disease of [place] coronary artery with* Comments: * Follows with Dr. Patel * Z87.891 Personal history of nicotine dependence * Z79.899 Other buttermaker (current) drug therapy * Z79.82 meterman (current) use of aspirin * Z79.84 meterman (current) use of oral hypoglycemic drugs * I10 Essential (primary) hypertension* Comments:* BP is elevated today but has been well controlled at his last two visits. No changes today * K21.9 Gastro-esophageal reflux disease without esophagitis* Comments:* stable * E78.2 Mixed hyperlipidemia* Comments:* excellent control on atorvastatin 40 mg * M17.0 Bilateral primary osteoarthritis of knee* Comments:* He's not ready for a referral yet. * H61.22 Impacted cerumen, left ear Functional Status Description No Information Available Mental Status Description No Information Available Referrals Refer to Dr Reason for Referral Status Appt Date Janak Arreguin M.D. THis is a 80 year old male w ith positive cologuard result. Please evaluate and treat. Closed 12/13/[address] [address] [phone]
--- OUTSIDE RECORDS SUMMARY | 2021-03-02 07:47 | CCD | Continuity of Care Document ---
Author Author Alireza DALAL PA Organization Unknown Address [address] [facility], [address] [place] [address] Phone [phone] Care Team Providers Care Trade Economist Name Role Phone Keturah Chauhan D.O.M Problems Active Problems Provider Date Essential hypertension Janak Arreguin M.D. Onset: 6 Diverticular disease of colon Janak Arreguin M.D. Onset: Hemorrhoids without complication Janak Arreguin M.D. Onset: 12/07/2016 Benign neoplasm of rectum and anal canal Misty Aiken Onset: 12/07/2016 Hemorrhage of rectum and anus Janak Arreguin M.D. Onset: Impacted cerumen Francisco Valentine MD Onset: 12/25/2016 Wheezing Francisco Valentine MD Onset: 12/25/2016 Cough Francisco Valentine MD Onset: 12/25/2016 Posterior rhinorrhea Francisco Valentine MD Onset: 12/25/2016 Obstructive sleep apnea syndrome Cynthia Puri, A.N.P. Onset: 09/19/2015 Dyspnea Lashonda Macias A.N.PIvis Onset: 06/15/2015 Sleep apnea Lashonda Macias A.N.PIvis Onset: 06/15/2015 Social History Type Date Description Comments Sex Unknown ETOH Use Denies alcohol use Tobacco Use Start: Unknown End: Unknown Patient is a former smoker QUIT 1992; 1 PPD FOR 45 YEARS Recreational Drug Use Denies Drug Use Smoking Status Reviewed: 04/13/20 Patient is a former smoker QU IT 1992; 1 PPD FOR 45 YEARS Allergies, Adverse Reactions, Alerts Description No Known Drug Allergies Medications Active Medications SIG Qnty Indications Ordering Provide r Date Lisinopril 20mg Tablets once a day Unknown Furosemide 20mg Tablets 1 PO Daily Unknown Docqlace 100mg Capsules 1 PO 2 X Daily Unknown Omeprazole 40mg Capsules DR 1 by mouth every day Unknown Eliquis 5mg Tablets 1 by mouth twice a day Unknown Atorvastatin Calcium 40mg Tablets daily Unknown CPAP 14CM Saurabh Gilman MD Miralax 17gm Packet take 17 gm per dose mixed with 8 ounces of water -- 1 or 2 times a day. avoid/ stop if having diarrhea. Unknown Tylenol 325mg Tablets 2 tab by mouth every 8 hours as needed Unknown Tamsulosin HCL 0.4mg Capsules 1 tab by mouth every day 30caps Unknown Immunizations Description No Information Available Vital Signs Date Vital Result Comment 12/13/2020 10:57am BP Systolic 130 mmHg BP Diastolic 82 mmHg Height 69 inches 5'9" Weight 232.50 lb BMI (Body Mass Index) 34.3 kg/m2 [place] Body Weight 160 lb Weight 105.462 kg BSA (Body Surface Area) 2.20 m2 04/13/2020 9:06am BP Systolic 140 mmHg BP Diastolic 72 mmHg Heart Rate 70 /min O2 % BldC Oximetry 94 % Body Temperature 96.7 F Height 69 inches 5'9" Weight 241.00 lb BMI (Body Mass Index) 35.6 kg/m2 [place] Body Weight 160 lb Weight 109.318 kg BSA (Body Surface Area) 2.24 m2 Results Description No Information Available Procedures Date Code Description Status 12/13/2020 23728 Office/Outpatient New Moderate M DM 45-59 Minutes Completed Medical Devices Description No Information Available Encounters Type Date Location Provider Dx Diagnosis Office Visit 12/13/2020 11:00a [facility] TENA Payne D12.8 Benign neoplasm of rectum K64.9 Unspecified hemorrhoids K57.30 Dvrtclos of lg int w/o perfo ration or abscess w/o bleeding Z79.02 care home (current) use of a ntithrombotics/antiplatelets Assessments Date Code Description Provider 12/13/2020 D12.8 Benign neoplasm of rectum TENA Capone 12/13/2020 K64.9 Unspecified hemorrhoids TENA Amador 12/13/2020 K57.30 Diverticulosis of la rge intestine without perforation or abscess without bleeding TENA Capone 12/13/2020 Z79.02 care home (current) use of antit hrombotics/antiplatelets TENA Capone Plan of Treatment Future Appointment(s):* 03/16/2021 9:30 am - TENA Capone at [facility] * 03/02/2021 9:00 am - Janak Arreguin M.D. at [facility] * 04/13/2021 8:30 am - Fabiano Gilman MD at [facility] Pulmonary/Thoracic 12/13/2020 - TENA Capone* D12.8 Benign neoplasm of rectum * K64.9 Unspecified hemorrhoids * K57.30 Diverticulosis of large intestine without perforation or abscess without bleeding * Z79.02 care home (current) use of antithrombotics/antiplatelets Functional Status Description No Information Available Mental Status Description No Information Available Referrals Description No Information Available
--- OUTSIDE RECORDS SUMMARY | 2021-03-02 07:47 | CCD | Continuity of Care Document ---
Author Author Alireza DALAL PA Organization Unknown Address [address] [facility], [address] [place] [address] Phone [phone] Care Team Providers Care Deliver Driver Name Role Phone Keturah Chauhan D.O.M Problems [...] lb BMI (Body Mass Index) 34.3 kg/m2 [place] Body Weight 160 lb Weight 105.462 kg BSA (Body Surface Area) 2.20 m2 04/13/2020 9:06am BP Systolic 140 mmHg BP Diastolic 72 mmHg Heart Rate 70 /min O2 % BldC Oximetry 94 % Body Temperature 96.7 F Height 69 inches 5'9" Weight 241.00 lb BMI (Body Mass Index) 35.6 kg/m2 [place] Body Weight 160 lb Weight 109.318 kg BSA (Body Surface Area) 2.24 m2 Results Description No Information Available Procedures Description No Information Available Medical Devices Description No Information Available Encounters Description No Information Available Assessments Description No Information Available Plan of Treatment Future Appointment(s):* 04/13/2021 8:30 am - Fabiano Gilman MD at [facility] Pulmonary/Thoracic Functional Status Description No Information Available Mental Status Description No Information Available Referrals Description No Information Available
--- OUTSIDE RECORDS SUMMARY | 2021-03-02 07:47 | CCD | Continuity of Care Document ---
Author Author Alireza MENDOZA DPM Organization Unknown Address [address] [place] [address], [address] [place] [address] Phone [phone] Care Team Providers Care Export Sales Manager Name Role Phone Keturah Chauhan D.O. AUTM Problems Active Problems Provider Date Michael Mendoza DPM Onset: 04/24/2016 Type 2 diabetes mellitus with diabetic polyneuropathy Matthew Mendoza DPM Onset: 12/12/2019 Social History Type Date Description Comments Sex Unknown ETOH Use Denies alcohol use Tobacco Use Start: Unknown End: Unknown Patient is a former smoker quit november 1992 33hx 1ppd Allergies, Adverse Reactions, Alerts Description No Known Drug Allergies Medications Active Medications SIG Qnty Indications Ordering Provide r Date Vmpusoea-Pdiewissg-NB 1% Solution apply one drop to base of nail after betadine soaks as directed 10units Matthew Mendoza DPM 01/03/2021 Fldeucwk-Ztndpexds-DN 1% Solution apply one drop to base of nail after betadine soaks as directed 10units Matthew Mendoza DPM 09/18/2018 Keflex 500mg Capsules 1 tab by mouth twice daily 14caps Matthew Mendoza DPM 07/04/2016 Neomycin/Polymyxin/Hydrocortisone (Otic) 3.5-98071-2 Solution apply one drop to base of nail after betadine soaks 10ml Matthew Mendoza DPM 05/31/2016 Ammonium Lactate 12% Cream apply to feet daily 280units Matthew Mendoza DPM 05/16/2016 Cortisporin 3.3-3-10-0.5mg/ml Susp ension apply bid to surgical site until healed 1units Ritchie Mendoza, JANICE 09/14/2011 Gabapentin Unknown Suprep Bowel Prep Solution Unknown Nitrostat 0.4mg Tablets Sub Unknown Nystatin-Triamcinolone 478826-8.1Unit/GM-% Cream Unknown Ciprofloxacin HCL 500mg Tablets Unknown Eliquis 5mg Tablets Take One Tablet By Mouth Twice A Day Unknown Metformin HCL ER 500mg Tablets ER 24HR Unknown Ventolin HFA 108(90Base) mcg/Act A erosol Unknown Prednisone 20mg Tablets Unknown Amoxicillin/Clavulanate Potassium 875-125mg Tablets Unknown Atorvastatin Calcium 40mg Tablets Take One Tablet By Mouth AT Bedtime Unknown Amiodarone HCL 200mg Tablets Take Two Tablets By Mouth Every Eight Hours For Seven Days Then Take Unknown Docqlace 100mg Capsules Take One Capsule By Mouth Every Day as Needed Unknown Lutein Unknown Omeprazole Unknown Niaspan Unknown Amlodipine Besylate Unknown Lisinopril Unknown Pravastatin Sodium Unknown Metoprolol Tartrate Unknown Furosemide Unknown Immunizations Description No Information Available Vital Signs Date Vital Result Comment 11/29/2020 1:04pm Height 70 inches 5'10" Weight 225.00 lb BP Systolic 110 mmHg BP Diastolic 60 mmHg Heart Rate 63 /min BMI (Body Mass Index) 32.3 kg/m2 12/01/2019 2:01pm Height 71 inches 5'11" Weight 243.00 lb BP Systolic 130 mmHg BP Diastolic 72 mmHg Heart Rate 55 /min BMI (Body Mass Index) 33.9 kg/m2 Results Description No Information Available Procedures Date Code Description Status 01/03/2021 13249 Excise Nail Bed & Matrix Complet ed 01/03/2021 22787 Excise Nail Bed & Matrix Complet ed 01/03/2021 47321 Excise Nail Bed & Matrix Complet ed 01/03/2021 71289 Excise Nail Bed & Matrix Complet ed 01/03/2021 78451 Excise Nail Bed & Matrix Complet ed 11/29/2020 78861 Office/Outpatient Established Lo w MDM 20-29 Min Completed Medical Devices Description No Information Available Encounters Type Date Location Provider Dx Diagnosis Office Visit 11/29/2020 1:15p [facility] Matthew Mendoza DPM M20.40 Other hammer toe(s) (acquired), unspecified foot L60.0 Ingrowing nail E11.42 Type 2 diabetes mellitus wit h diabetic polyneuropathy Assessments Date Code Description Provider 01/03/2021 L60.0 Ingrowing nail Matthew Mendoza DPM 01/03/2021 E11.42 Type 2 diabetes mellitus with di abetic polyneuropathy Matthew Mendoza DPM 11/29/2020 M20.40 Other hammer toe(s) (acquired), unspecified foot Matthew Mendoza DPM 11/29/2020 L60.0 Ingrowing nail Matthew Mendoza DPM 11/29/2020 E11.42 Type 2 diabetes mellitus with di abetic polyneuropathy Matthew Mendoza DPM Plan of Treatment Future Appointment(s):* 04/11/2021 1:30 pm - Matthew Mendoza DPM at [facility] Functional Status Description No Information Available Mental Status Description No Information Available Referrals Description No Information Available
--- OUTSIDE RECORDS SUMMARY | 2021-03-02 07:47 | CCD | Continuity of Care Document ---
Author Author Alireza DALAL PA Organization Unknown Address [address] [facility], [address] [place] [address] Phone [phone] Care Team Providers Care Security System Analyst Name Role Phone Keturah Chauhan D.O.M Problems [...] lb BMI (Body Mass Index) 34.3 kg/m2 [place] Body Weight 160 lb Weight 105.462 kg BSA (Body Surface Area) 2.20 m2 04/13/2020 9:06am BP Systolic 140 mmHg BP Diastolic 72 mmHg Heart Rate 70 /min O2 % BldC Oximetry 94 % Body Temperature 96.7 F Height 69 inches 5'9" Weight 241.00 lb BMI (Body Mass Index) 35.6 kg/m2 [place] Body Weight 160 lb Weight 109.318 kg BSA (Body Surface Area) 2.24 m2 Results Description No Information Available Procedures Date Code Description Status 12/13/2020 64882 Office/Outpatient New Moderate M DM 45-59 Minutes Completed Medical Devices Description No Information Available Encounters Type Date Location Provider Dx Diagnosis Office Visit 12/13/2020 11:00a [facility] TENA Payne D12.8 Benign neoplasm of rectum K64.9 Unspecified hemorrhoids K57.30 Dvrtclos of lg int w/o perfo ration or abscess w/o bleeding Z79.02 [facility] (current) use of a ntithrombotics/antiplatelets Assessments Date Code Description Provider 12/13/2020 D12.8 Benign neoplasm of rectum TENA Capone 12/13/2020 K64.9 Unspecified hemorrhoids TENA Amador 12/13/2020 K57.30 Diverticulosis of la rge intestine without perforation or abscess without bleeding TENA Capone 12/13/2020 Z79.02 [facility] (current) use of antit hrombotics/antiplatelets TENA Capone Plan of Treatment Future Appointment(s):* 03/16/2021 9:30 am - TENA Capone at [facility] * 03/02/2021 9:00 am - Janak Arreguin M.D. at [facility] * 04/13/2021 8:30 am - Fabiano Gilman MD at [facility] Pulmonary/Thoracic 12/13/2020 - TENA Capone* D12.8 Benign neoplasm of rectum * K64.9 Unspecified hemorrhoids * K57.30 Diverticulosis of large intestine without perforation or abscess without bleeding * Z79.02 [facility] (current) use of antithrombotics/antiplatelets Functional Status Description No Information Available Mental Status Description No Information Available Referrals Description No Information Available
--- OUTSIDE RECORDS SUMMARY | 2021-03-02 07:48 | CCD ---
Author Author [facility] Organization [facility] Address Unknown Phone Unavailable Care Team Providers Care Information Technology Officer Name Role Phone [facility], PA-C Unavailable Unavailabl e Fish, [facility], PA-C Unavailable Unavailabl e Fish, [facility], PA-C Unavailable Unavailabl e Fish, [facility], PA-C Unavailable Unavailabl e Fish, [facility], PA-C Unavailable Unavailabl e Fish, [facility], PA-C Unavailable Unavailabl e Fish, [facility], PA-C Unavailable Unavailabl e Fish, [facility], PA-C Unavailable Unavailabl e Fish, [facility], PA-C Unavailable Unavailabl e Fish, [facility], PA-C Unavailable Unavailabl e Fish, [facility], PA-C Unavailable Unavailabl e Fish, [facility], PA-C Unavailable Unavailabl e Fish, [facility], PA-C Unavailable Unavailabl e Fish, [facility], PA-C Unavailable Unavailabl e Fish, [facility], PA-C Unavailable Unavailabl e Fish, [facility], PA-C Unavailable Unavailabl e Fish, [facility], PA-C Unavailable Unavailabl e Fish, [facility], PA-C Unavailable Unavailabl e Fish, Mishel Kisha [facility], PA-C Unavailable Unavailabl e [facility], [facility] Unavailable Unavailabl e Fish, [facility] Unavailable Unavailabl e Fish, [facility]C Unavailable Unavailabl e Fish, [facility], [facility]-C Unavailable Unavailabl e Fish, [facility], [facility]-C Unavailable Unavailabl e Fish, [facility], PA-C Unavailable Unavailabl e Fish, [facility], PA-C Unavailable Unavailabl e Fish, [facility] Unavailable Unavailabl e Fish, [facility], PA-C Unavailable Unavailabl e Fish, [facility], PA-C Unavailable Unavailabl e Fish, [facility], PA-C Unavailable Unavailabl e Fish, [facility], PA-C Unavailable Unavailabl e Fish, [facility], PA-C Unavailable Unavailabl e Fish, [facility], PA-C Unavailable Unavailabl e Fish, [facility], PA-C Unavailable Unavailabl e Fish, [facility] Unavailable Unavailabl e LOIS POLANCO MD Unavailable Unavailable LOIS POLANCO MD Unavailable Unavailable LOIS POLANCO MD Unavailable Unavailable LOIS POLANCO MD Unavailable Unavailable LOIS POLANCO MD Unavailable Unavailable LOIS POLANCO MD Unavailable Unavailable LOIS POLANCO MD Unavailable Unavailable LOIS POLANCO MD Unavailable Unavailable LOIS POLANCO MD Unavailable Unavailable LOIS POLANCO MD Unavailable Unavailable LOIS POLANCO MD Unavailable Unavailable LOIS POLANCO MD Unavailable Unavailable LOIS POLANCO MD Unavailable Unavailable LOIS POLANCO MD Unavailable Unavailable LOIS POLANCO MD Unavailable Unavailable LOIS POLANCO MD Unavailable Unavailable LOIS POLANCO MD Unavailable Unavailable LOIS POLANCO MD Unavailable Unavailable LOIS POLANCO MD Unavailable Unavailable LOIS POLANCO MD Unavailable Unavailable LOIS POLANCO MD Unavailable Unavailable LOIS POLANCO MD Unavailable Unavailable LOIS POLANCO MD Unavailable Unavailable LOIS POLANCO MD Unavailable Unavailable LOIS POLANCO MD Unavailable Unavailable LOIS POLANCO MD Unavailable Unavailable LOIS POLANCO MD Unavailable Unavailable LOIS POLANCO MD Unavailable Unavailable LOIS POLANCO MD Unavailable Unavailable LOIS POLANCO MD Unavailable Unavailable LOIS POLANCO MD Unavailable Unavailable LOIS POLANCO MD Unavailable Unavailable LOIS POLANCO MD Unavailable Unavailable SONYA-HENNA, MANUELA DO Unavailable Unavailable SONYA-HENNA, MANUELA DO Unavailable Unavailable SONYA-HENNA, MANUELA DO Unavailable Unavailable SONYA-HENNA, MANUELA DO Unavailable Unavailable SONYA-HENNA, MANUELA DO Unavailable Unavailable SONYA-HENNA, MANUELA DO Unavailable Unavailable SONYA-HENNA, MANUELA DO Unavailable Unavailable SONYA-HENNA, MANUELA DO Unavailable Unavailable SONYA-HENNA, MANUELA DO Unavailable Unavailable SONYA-HENNA, MANUELA DO Unavailable Unavailable SONYA-HENNA, MANUELA DO Unavailable Unavailable SONYA-HENNA, MANUELA DO Unavailable Unavailable SONYA-HENNA, MANUELA DO Unavailable Unavailable SONYA-HENNA, MANUELA DO Unavailable Unavailable SONYA-HENNA, MANUELA DO Unavailable Unavailable SONYA-HENNA, MANUELA DO Unavailable Unavailable SONYA-HENNA, MANUELA DO Unavailable Unavailable SONYA-HENNA, MANUELA DO Unavailable Unavailable SONYA-HENNA, MANUELA DO Unavailable Unavailable SONYA-HENNA, MANUELA DO Unavailable Unavailable SONYA-HENNA, MANUELA DO Unavailable Unavailable SONYA-HENNA, MANUELA DO Unavailable Unavailable SONYA-HENNA, MANUELA DO Unavailable Unavailable SONYA-HENNA, MANUELA DO Unavailable Unavailable SONYA-HENNA, MANUELA DO Unavailable Unavailable SONYA-HENNA, MANUELA DO Unavailable Unavailable SONYA-HENNA, MANUELA DO Unavailable Unavailable SONYA-HENNA, MANUELA DO Unavailable Unavailable SONYA-HENNA, MANUELA DO Unavailable Unavailable SONYA-HENNA, MANUELA DO Unavailable Unavailable SONYA-HENNA, MANUELA DO Unavailable Unavailable SONYA-HENNA, MANUELA DO Unavailable Unavailable SONYA-HENNA, MANUELA DO Unavailable Unavailable SONYA-HENNA, MANUELA DO Unavailable Unavailable SONYA-HENNA, MANUELA DO Unavailable Unavailable SONYA-HENNA, MANUELA DO Unavailable Unavailable SONYA-HENNA, MANUELA DO Unavailable Unavailable SONYA-HENNA, MANUELA DO Unavailable Unavailable SONYA-HENNA, MANUELA DO Unavailable Unavailable SONYA-HENNA, MANUELA DO Unavailable Unavailable SONYA-HENNA, MANUELA DO Unavailable Unavailable SONYA-HENNA, MANUELA DO Unavailable Unavailable SONYA-HENNA, MANUELA DO Unavailable Unavailable SONYA-HENNA, MANUELA DO Unavailable Unavailable SONYA-HENNA, MANUELA DO Unavailable Unavailable SONYA-HENNA, MANUELA DO Unavailable Unavailable SONYA-HENNA, MANUELA DO Unavailable Unavailable SONYA-HENNA, MANUELA DO Unavailable Unavailable SONYA-HENNA, MANUELA DO Unavailable Unavailable SONYA-HENNA, MANUELA DO Unavailable Unavailable SONYA-HENNA, MANUELA DO Unavailable Unavailable SONYA-HENNA, MANUELA DO Unavailable Unavailable SONYA-HENNA, MANUELA DO Unavailable Unavailable SONYA-HENNA, MANUELA DO Unavailable Unavailable SONYA-HENNA, MANUELA DO Unavailable Unavailable SONYA-HENNA, MANUELA DO Unavailable Unavailable SONYA-HENNA, MANUELA DO Unavailable Unavailable SONYA-HENNA, MANUELA DO Unavailable Unavailable SONYA-HENNA, MANUELA DO Unavailable Unavailable SONYA-HENNA, MANUELA DO Unavailable Unavailable SONYA-HENNA, MANUELA DO Unavailable Unavailable SONYA-HENNA, MANUELA DO Unavailable Unavailable SONYA-HENNA, MANUELA DO Unavailable Unavailable SONYA-HENNA, MANUELA DO Unavailable Unavailable SONYA-HENNA, MANUELA DO Unavailable Unavailable SONYA-HENNA, MANUELA DO Unavailable Unavailable SONYA-HENNA, MANUELA DO Unavailable Unavailable SONYA-HENNA, MANUELA DO Unavailable Unavailable SONYA-HENNA, MANUELA DO Unavailable Unavailable SONYA-HENNA, MANUELA DO Unavailable Unavailable SONYA-HENNA, MANUELA DO Unavailable Unavailable SONYA-HENNA, MANUELA DO Unavailable Unavailable SONYA-HENNA, MANUELA DO Unavailable Unavailable SONYA-HENNA, MANUELA DO Unavailable Unavailable SONYA-HENNA, MANUELA DO Unavailable Unavailable SONYA-HENNA, MANUELA DO Unavailable Unavailable SONYA-HENNA, MANUELA DO Unavailable Unavailable SONYA-HENNA, MANUELA DO Unavailable Unavailable SONYA-HENNA, MANUELA DO Unavailable Unavailable SONYA-HENNA, MANUELA DO Unavailable Unavailable SONYA-HENNA, MANUELA DO Unavailable Unavailable SONYA-HENNA, MANUELA DO Unavailable Unavailable SONYA-HENNA, MANUELA DO Unavailable Unavailable SONYA-HENNA, MANUELA DO Unavailable Unavailable MAJAK, R LOIS DPM Unavailable Unavailable MAJAK, R LOIS DPM Unavailable Unavailable MAJAK, R LOIS DPM Unavailable Unavailable MAJAK, R LOIS DPM Unavailable Unavailable MAJAK, R LOIS DPM Unavailable Unavailable MAJAK, R LOIS DPM Unavailable Unavailable MAJAK, R LOIS DPM Unavailable Unavailable MAJAK, R LOIS DPM Unavailable Unavailable MAJAK, R LOIS DPM Unavailable Unavailable MAJAK, R LOIS DPM Unavailable Unavailable MAJAK, R LOIS DPM Unavailable Unavailable MAJAK, R LOIS DPM Unavailable Unavailable MAJAK, R LOIS DPM Unavailable Unavailable MAJAK, R LOIS DPM Unavailable Unavailable MAJAK, R LOIS DPM Unavailable Unavailable MAJAK, R LOIS DPM Unavailable Unavailable MAJAK, R LOIS DPM Unavailable Unavailable MAJAK, R LOIS DPM Unavailable Unavailable MAJAK, R LOIS DPM Unavailable Unavailable MAJAK, R LOIS DPM Unavailable Unavailable MAJAK, R LOIS DPM Unavailable Unavailable MAJAK, R LOIS DPM Unavailable Unavailable MAJAK, R LOIS DPM Unavailable Unavailable MAJAK, R LOIS DPM Unavailable Unavailable MAJAK, R LOIS DPM Unavailable Unavailable MAJAK, R LOIS DPM Unavailable Unavailable MAJAK, R LOIS DPM Unavailable Unavailable MAJAK, R LOIS DPM Unavailable Unavailable MAJAK, R LOIS DPM Unavailable Unavailable MAJAK, R LOIS DPM Unavailable Unavailable MAJAK, R LOIS DPM Unavailable Unavailable Mary, Conner PA Unavailable Unavailable Mary, Conner PA Unavailable Unavailable Mary, Conner PA Unavailable Unavailable Mary, Conner PA Unavailable Unavailable Mary, Conner PA Unavailable Unavailable Mary, Conner PA Unavailable Unavailable Mary, Conner PA Unavailable Unavailable Mary, Conner PA Unavailable Unavailable Mary, Conner PA Unavailable Unavailable Mary, Conner PA Unavailable Unavailable Mary, Conner PA Unavailable Unavailable Mary, Conner PA Unavailable Unavailable Mary, Conner PA Unavailable Unavailable Mary, Conner PA Unavailable Unavailable Mary, Conner PA Unavailable Unavailable Mary, Conner PA Unavailable Unavailable Mary, Conner PA Unavailable Unavailable Mary, Conner PA Unavailable Unavailable Mary, Conner PA Unavailable Unavailable Mary, Conner PA Unavailable Unavailable Mary, Conner PA Unavailable Unavailable Mary, Conner PA Unavailable Unavailable Mary, Conner PA Unavailable Unavailable Mary, Conner PA Unavailable Unavailable Mary, Conner PA Unavailable Unavailable Mary, Conner PA Unavailable Unavailable Mary, Conner PA Unavailable Unavailable Mary, Conner PA Unavailable Unavailable Mary, Conner PA Unavailable Unavailable Mary, Conner PA Unavailable Unavailable Mary, Conner PA Unavailable Unavailable Mary, Conner PA Unavailable Unavailable Mary, Conner PA Unavailable Unavailable Mary, Conner PA Unavailable Unavailable Mary, Conner PA Unavailable Unavailable Mary, Conner PA Unavailable Unavailable Mary, Conner PA Unavailable Unavailable Mary, Conner PA Unavailable Unavailable Mary, Conner PA Unavailable Unavailable Mary, Conner PA Unavailable Unavailable Mary, Conner PA Unavailable Unavailable Mary, Conner PA Unavailable Unavailable Mary, Conner PA Unavailable Unavailable Mary, Conner PA Unavailable Unavailable Mary, Conner PA Unavailable Unavailable Mary, Conner PA Unavailable Unavailable Mary, Conner PA Unavailable Unavailable Mary, Conner PA Unavailable Unavailable Mary, Conner PA Unavailable Unavailable Mary, Conner PA Unavailable Unavailable Mary, Conner PA Unavailable Unavailable Mary, Conner PA Unavailable Unavailable Mary, Conner PA Unavailable Unavailable Mary, Conner PA Unavailable Unavailable Maynard, L Gem PA Unavailable Unavailable Maynard, L Gem PA Unavailable Unavailable Maynard, L Gem PA Unavailable Unavailable Maynard, L Gem PA Unavailable Unavailable Maynard, L Gem PA Unavailable Unavailable Maynard, L Gem PA Unavailable Unavailable Maynard, L Gem PA Unavailable Unavailable Maynard, L Gem PA Unavailable Unavailable Maynard, L Gem PA Unavailable Unavailable Maynard, L Gem PA Unavailable Unavailable Maynard, L Gem PA Unavailable Unavailable Maynard, L Gem PA Unavailable Unavailable Maynard, L Gem PA Unavailable Unavailable Maynard, L Gem PA Unavailable Unavailable Maynard, L Gem PA Unavailable Unavailable Maynard, L Gem PA Unavailable Unavailable Maynard, L Gem PA Unavailable Unavailable Maynard, L Gem PA Unavailable Unavailable Maynard, L Gem PA Unavailable Unavailable Maynard, L Gem PA Unavailable Unavailable Maynard, L Gem PA Unavailable Unavailable Maynard, L Gem PA Unavailable Unavailable Maynard, L Gem PA Unavailable Unavailable Maynard, L Gem PA Unavailable Unavailable Maynard, L Gem PA Unavailable Unavailable Maynard, L Gem PA Unavailable Unavailable Maynard, L Gem PA Unavailable Unavailable Myanard, L Gem PA Unavailable Unavailable Maynard, L Gem PA Unavailable Unavailable Maynard, L Gem PA Unavailable Unavailable Maynard, L Gem PA Unavailable Unavailable Maynard, L Gem PA Unavailable Unavailable Maynard, L Gem PA Unavailable Unavailable Maynard, L Gem PA Unavailable Unavailable Maynard, L Gem PA Unavailable Unavailable Maynard, L Gem PA Unavailable Unavailable Maynard, L Gem PA Unavailable Unavailable Maynard, L Gem PA Unavailable Unavailable Maynard, L Gem PA Unavailable Unavailable Pollard, L Chloe RPA Unavailable Unavailable Pollard, L Chloe RPA Unavailable Unavailable Pollrad, L Chloe RPA Unavailable Unavailable Pollard, L Chloe RPA Unavailable Unavailable Pollard, L Chloe RPA Unavailable Unavailable Pollard, L Chloe RPA Unavailable Unavailable Pollard, L Chloe RPA Unavailable Unavailable Pollard, L Chloe RPA Unavailable Unavailable Pollard, L Chloe RPA Unavailable Unavailable Pollard, L Chloe RPA Unavailable Unavailable Pollard, L Chloe RPA Unavailable Unavailable Pollard, L Chloe RPA Unavailable Unavailable Pollard, L Chloe RPA Unavailable Unavailable Pollard, L Chloe RPA Unavailable Unavailable Pollard, L Chloe RPA Unavailable Unavailable Pollard, L Chloe RPA Unavailable Unavailable Pollard, L Chloe RPA Unavailable Unavailable Pollard, L Chloe RPA Unavailable Unavailable Pollard, L Chloe RPA Unavailable Unavailable Pollard, L Chloe RPA Unavailable Unavailable Pollard, L Chloe RPA Unavailable Unavailable Pollard, L Chloe RPA Unavailable Unavailable Plolard, L Chloe RPA Unavailable Unavailable Pollard, L Chloe RPA Unavailable Unavailable Pollard, L Chloe RPA Unavailable Unavailable Pollard, L Chloe RPA Unavailable Unavailable Pollard, L Chloe RPA Unavailable Unavailable Pollard, L Chloe RPA Unavailable Unavailable Pollard, L Chloe RPA Unavailable Unavailable Pollard, L Chloe RPA Unavailable Unavailable Pollard, L Chloe RPA Unavailable Unavailable Pollard, L Chloe RPA Unavailable Unavailable Ruba Patel MD Unavailable Unavailable Ruba Patel MD Unavailable Unavailable Ruba Patel MD Unavailable Unavailable Ruba Patel MD Unavailable Unavailable Ruba Patel MD Unavailable Unavailable Ruba Patel MD Unavailable Unavailable Ruba Patel MD Unavailable Unavailable Ruba Patel MD Unavailable Unavailable Ruba Patel MD Unavailable Unavailable Ruba Patel MD Unavailable Unavailable Ruba Patel MD Unavailable Unavailable Ruba Patel MD Unavailable Unavailable Ruba Patel MD Unavailable Unavailable Ruba Patel MD Unavailable Unavailable Ruba Patel MD Unavailable Unavailable Ruba Patel MD Unavailable Unavailable Ruba Patel MD Unavailable Unavailable Ruba Patel MD Unavailable Unavailable Ruba Patel MD Unavailable Unavailable Ruba Patel MD Unavailable Unavailable Ruba Patel MD Unavailable Unavailable Ruba Patel MD Unavailable Unavailable Ruba Patel MD Unavailable Unavailable Ruba Patel MD Unavailable Unavailable Ruba Patel MD Unavailable Unavailable Ruba Patel MD Unavailable Unavailable Ruba Patel MD Unavailable Unavailable Ruba Patel MD Unavailable Unavailable Ruba Patel MD Unavailable Unavailable Ruba Patel MD Unavailable Unavailable Ruba Patel MD Unavailable Unavailable Rbua Patel MD Unavailable Unavailable Ruba Patel MD Unavailable Unavailable Ruba Patel MD Unavailable Unavailable Ruba Patel MD Unavailable Unavailable Ruba Patel MD Unavailable Unavailable Ruba Paetl MD Unavailable Unavailable Ruba Patel MD Unavailable Unavailable Ruba Patel MD Unavailable Unavailable Ruba Patel MD Unavailable Unavailable Ruba Patel MD Unavailable Unavailable Ruba Patel MD Unavailable Unavailable Ruba Patel MD Unavailable Unavailable Ruba Patel MD Unavailable Unavailable Ruba Patel MD Unavailable Unavailable Ruba Patel MD Unavailable Unavailable Ruba Patel MD Unavailable Unavailable Ruba Patel MD Unavailable Unavailable Ruba Patel MD Unavailable Unavailable Ruba Patel MD Unavailable Unavailable Ruba Patel MD Unavailable Unavailable Ruba Patel MD Unavailable Unavailable Ruba Patel MD Unavailable Unavailable Ruba Patel MD Unavailable Unavailable Ruba Patel MD Unavailable Unavailable Ruba Patel MD Unavailable Unavailable Ruba Patel MD Unavailable Unavailable Ruba Patel MD Unavailable Unavailable Re-disclosure Warning The records that you are about to access may contain information from federally-assisted alcohol or drug abuse programs. If such information is present, then the following federally mandated warning applies: This information has been disclosed to you from records protected by federal confidentiality rules (42 CFR part 2). The federal rules prohibit you from making any further disclosure of this information unless further disclosure is expressly permitted by the written consent of the person to whom it pertains or as otherwise permitted by 42 CFR part 2. A general authorization for the release of medical or other information is NOT sufficient for this purpose. The Federal rules restrict any use of the information to criminally investigate or prosecute any alcohol or drug abuse patient.The records that you are about to access may contain highly sensitive health information, the redisclosure of which is protected by Article 27-F of the [facility] Public Health law. If you continue you may have access to information: Regarding HIV / AIDS; Provided by facilities licensed or operated by the [facility] Office of Mental Health; or Provided by the [facility] Office for People With Developmental Disabilities. If such information is present, then the following [facility] mandated warning applies: This information has been disclosed to you from confidential records which are protected by state law. State law prohibits you from making any further disclosure of this information without the specific written consent of the person to whom it pertains, or as otherwise permitted by law. Any unauthorized further disclosure in violation of state law may result in a fine or group home sentence or both. A general authorization for the release of medical or other information is NOT sufficient authorization for further disc losure. Family History Family Member Name Family Member Gender Family Member Status Date o f Status Description Data Source(s) Unknown Unknown Problem [facility] ([facility] Encounters Encounter Providers Location Date Indications Data Source(s ) Outpatient Attender: MANUELA MCCALL DO Family [facility] 02/01/2021 08:10:00 AM EDT [facility] ([facility]) Outpatient Referrer: Gem WHITE.MILAGRO-SJVINCE 08/2020 07:43:26 AM EDT [facility] Outpatient Attender: Chloe Valentine/Jackie/Jose A/R sumi 12/13/2020 11:00:00 AM EDT [facility] ([facility] Outpatient Attender: LOIS FLORES [facility] Office 11/11 01:15:00 PM EDT [facility] Outpatient Attender: MANUELA MCCALL [facility] 11/24/2020 10:40:00 AM EDT [facility] ([facility]) Office Visit Attender: Conner MADSEN Family [facility] 10/31/2020 08:40:00 AM EDT [facility] ([facility]) Outpatient Attender: Gem GODWIN-[email or web address].MILAGRO 02/2021 12:00:00 AM EDT - 10/20/2020 09:29:17 AM EDT [facility] OFFICE OUTPATIENT VISIT 15 MINUTES Attender: TENA Lozada-C Physical Therapy 10/14/2020 08:45:00 AM EDT [facility] ([facility]) Outpatient Attender: MANUELA MCCALL [facility] 07/27/2020 08:20:00 AM EDT [facility] ([facility]) Outpatient Attender: Conner MADSEN Family [facility] 04/28/2020 07:40:00 AM EST [facility] ([facility]) Outpatient Attender: Ruba Patel MDReferrer: Charlotte GODWIN-SJP.MILAGRO 04/20/2020 12:00:00 AM EST - 04/20/2020 09:23:45 AM EST [facility] Office Visit Attender: LOIS POLANCO MD Physical Therapy 08:30:00 AM EDT [facility] ([facility]) Outpatient Attender: MANUELA MCCALL [facility] 01/28/2020 08:30:00 AM EDT [facility] ([facility]) Immunizations Vaccine Date Status Description Data Source(s) COVID-19 VACCINE Pfizer 02/15/2021 12:00:00 AM EDT completed [facility] Vaccine Series Complete: YESThis Data wa s Submitted to [facility] Via [facility]. COVID-19 VACC, MRNA(PFIZER)/PF 02/15/2021 12:00:00 AM EDT completed [facility] VARICELLA-ZOSTER [id number] 02/01/2021 12:00:00 AM EDT completed [facility] COVID-19 VACCINE Pfizer 07/02/2020 12:00:00 AM EST completed [facility] Vaccine Series Complete: YESThis Data wa s Submitted to [facility] Via [employer]. COVID-19 VACCINE, MRNA, [id number], LNP-S (PFIZER)/PF 07/02/19 21 12:00:00 AM EST completed [facility] COVID-19 VACCINE Pfizer 06/12/2020 12:00:00 AM EST completed [facility] Vaccine Series Complete: NOThis Data was Submitted to [facility] Via [employer]. COVID-19 VACCINE, MRNA, [id number], LNP-S (PFIZER)/PF 06/12/19 12:00:00 AM EST completed [facility] New in 2011. IIV4 01/28/2020 09:00:00 AM EDT completed [facility] ([facility]) Medications Medication Brand Name Start Date Product Form Dose Route Admi nistrative Instructions Pharmacy Instructions Status Indications Reaction Description Data Source(s) SUPREP BOWEL PREP KIT 17.5-3.13-1.6 gram SODIUM, POTASSIUM,M AG SULFATES 02/21/2021 12:00:00 AM EDT recon soln 354 DIRECTED DIREC DAKOTAH SOLD: 02/22/2021 [facility] atorvastatin 40 MG Oral Tablet ATORVASTATIN CALCIUM 02/06/2021 1 2:00:00 AM EDT tablet 90 TAKE ONE TABLET BY MOUTH EVERY E VENING TAKE ONE TABLET BY MOUTH EVERY EVENING SOLD: 02/07/2021 [facility] 20 mg 02/06/2021 12:00:00 AM EDT tablet 90 TAKE ONE TABLET BY MOUTH EVERY DAY TAKE ONE TABLET BY MOUTH EVERY DAY SOLD: 02/07/2021 [facility] 20 mg 02/06/2021 12:00:00 AM EDT tablet 90 TAKE ONE TABLET BY MOUTH EVERY MORNING TAKE ONE TABLET BY MOUTH EVERY MORNING SOLD: 02/07/2021 [facility] 40 mg 02/06/2021 12:00:00 AM EDT capsule,delayed release (DR/EC) 90 TAKE ONE CAPSULE BY MOUTH EVERY DAY TAKE ONE CAPSULE BY MOUTH EVERY DAY SOLD: 02/07/2021 [facility] 0.4 mg 02/06/2021 12:00:00 AM EDT capsule 90 TAKE ONE CAPSULE BY MOUTH EVERY DAY TAKE ONE CAPSULE BY MOUTH EVERY DAY SOLD: 02/07/2021 [facility] Shingrix Shingrix 02/01/2021 12:00:00 AM EDT SUBCUTANEOUS active [facility] ([facility]) 240 mcg/0.7 mL 01/21/2021 12:00:00 AM EDT syringe 0 INJECT DIRECTED INJECT DIRECTED SOLD: 01/21/2021 [facility] Hydrocortisone 10 MG/ML / Neomycin 3.5 M G/ML / Polymyxin B 02725 UNT/ML Otic Solution Lofbtsap-Vuvqzdkua-SC 01/03/2021 12:00:00 AM EDT active [facility] ([facility] 40 mg 08/04/2020 12:00:00 AM EDT capsule,delayed release (DR/EC) 90 TAKE ONE CAPSULE BY MOUTH EVERY DAY TAKE ONE CAPSULE BY MOUTH EVERY DAY SOLD: 08/09/2020 [facility] atorvastatin 40 MG Oral Tablet ATORVASTATIN CALCIUM 08/04/2020 1 2:00:00 AM EDT tablet 90 TAKE ONE TABLET BY MOUTH EVERY E VENING TAKE ONE TABLET BY MOUTH EVERY EVENING SOLD: 11/08/2020 [facility] atorvastatin 40 MG Oral Tablet ATORVASTATIN CALCIUM 08/04/2020 1 2:00:00 AM EDT tablet 90 TAKE ONE TABLET BY MOUTH EVERY E VENING TAKE ONE TABLET BY MOUTH EVERY EVENING SOLD: 08/09/2020 [facility] 40 mg 08/04/2020 12:00:00 AM EDT capsule,delayed release (DR/EC) 90 TAKE ONE CAPSULE BY MOUTH EVERY DAY TAKE ONE CAPSULE BY MOUTH EVERY DAY SOLD: 11/08/2020 [facility] 0.4 mg 08/04/2020 12:00:00 AM EDT capsule 90 TAKE ONE CAPSULE BY MOUTH EVERY DAY TAKE ONE CAPSULE BY MOUTH EVERY DAY SOLD: 08/09/2020 [facility] 0.4 mg 08/04/2020 12:00:00 AM EDT capsule 90 TAKE ONE CAPSULE BY MOUTH EVERY DAY TAKE ONE CAPSULE BY MOUTH EVERY DAY SOLD: 11/08/2020 [facility] 20 mg 08/04/2020 12:00:00 AM EDT tablet 90 TAKE ONE TABLET BY MOUTH EVERY MORNING TAKE ONE TABLET BY MOUTH EVERY MORNING SOLD: 11/08/2020 [facility] 20 mg 08/04/2020 12:00:00 AM EDT tablet 90 TAKE ONE TABLET BY MOUTH EVERY MORNING TAKE ONE TABLET BY MOUTH EVERY MORNING SOLD: 08/09/2020 [facility] 20 mg 08/04/2020 12:00:00 AM EDT tablet 90 TAKE ONE TABLET BY MOUTH EVERY DAY TAKE ONE TABLET BY MOUTH EVERY DAY SOLD: 11/08/2020 [facility] 20 mg 08/04/2020 12:00:00 AM EDT tablet 90 TAKE ONE TABLET BY MOUTH EVERY DAY TAKE ONE TABLET BY MOUTH EVERY DAY SOLD: 08/09/2020 [facility] Covid-19 vaccine, Unspecified 07/03/2020 12:00:00 AM EST completed [facility] ([facility]) Medication administered onsite Covid-19 vaccine, Unspecified 06/12/2020 12:00:00 AM EST completed [facility] ([facility]) Medication administered onsite 90 mcg/actuation 04/28/2020 12:00:00 AM EST HFA aerosol inha ler 17 INHALE TWO PUFFS BY MOUTH EVERY 4 HOURS NEEDED INHALE TWO PUFFS BY MOUTH EVERY 4 HOURS NEEDED SOLD: 05/03/2020 [facility] Furosemide 20 MG Oral Tablet furosemide (LASIX) 20 MG tablet furosemide (LASIX) 20 MG tablet 02/05/2020 12:00:00 AM EDT 20 mg Oral activ e Take 20 mg by mouth daily [facility] 20 mg 02/05/2020 12:00:00 AM EDT tablet 90 TAKE ONE TABLET BY MOUTH EVERY MORNING TAKE ONE TABLET BY MOUTH EVERY MORNING SOLD: 02/09/2020 [facility] atorvastatin 40 MG Oral Tablet ATORVASTATIN CALCIUM 02/05/2020 1 2:00:00 AM EDT tablet 90 TAKE ONE TABLET BY MOUTH EVERY E VENING TAKE ONE TABLET BY MOUTH EVERY EVENING SOLD: 02/09/2020 [facility] 0.4 mg 02/05/2020 12:00:00 AM EDT capsule 90 TAKE ONE CAPSULE BY MOUTH EVERY DAY TAKE ONE CAPSULE BY MOUTH EVERY DAY SOLD: 05/10/2020 [facility] 0.4 mg 02/05/2020 12:00:00 AM EDT capsule 90 TAKE ONE CAPSULE BY MOUTH EVERY DAY TAKE ONE CAPSULE BY MOUTH EVERY DAY SOLD: 02/09/2020 [facility] 20 mg 02/05/2020 12:00:00 AM EDT tablet 90 TAKE ONE TABLET BY MOUTH EVERY MORNING TAKE ONE TABLET BY MOUTH EVERY MORNING SOLD: 05/10/2020 [facility] 40 mg 02/05/2020 12:00:00 AM EDT capsule,delayed release (DR/EC) 90 TAKE ONE CAPSULE BY MOUTH EVERY DAY TAKE ONE CAPSULE BY MOUTH EVERY DAY SOLD: 02/09/2020 [facility] atorvastatin 40 MG Oral Tablet ATORVASTATIN CALCIUM 02/05/2020 1 2:00:00 AM EDT tablet 90 TAKE ONE TABLET BY MOUTH EVERY E VENING TAKE ONE TABLET BY MOUTH EVERY EVENING SOLD: 05/10/2020 [facility] 20 mg 02/05/2020 12:00:00 AM EDT tablet 90 TAKE ONE TABLET BY MOUTH EVERY DAY TAKE ONE TABLET BY MOUTH EVERY DAY SOLD: 05/10/2020 [facility] 20 mg 02/05/2020 12:00:00 AM EDT tablet 90 TAKE ONE TABLET BY MOUTH EVERY DAY TAKE ONE TABLET BY MOUTH EVERY DAY SOLD: 02/09/2020 [facility] 40 mg 02/05/2020 12:00:00 AM EDT capsule,delayed release (DR/EC) 90 TAKE ONE CAPSULE BY MOUTH EVERY DAY TAKE ONE CAPSULE BY MOUTH EVERY DAY SOLD: 05/10/2020 [facility] Omeprazole 40 MG Delayed Release Oral Ca psule omeprazole (PRILOSEC) 40 MG capsule omeprazole (PRILOSEC) 40 MG capsule 02/05/2020 12:00:00 AM EDT 40 mg Oral active Take 40 mg by mouth daily [facility] Immunization Administration Single Or Combination 01/28/2020 12:00:00 AM EDT completed [facility] ([facility]) Medication administered onsite apixaban 5 MG Oral Tablet Apixaban (ELIQUIS) 5 MG TABS tablet Apixaban (ELIQUIS) 5 MG TABS tablet 11/24/2019 12:00:00 AM EDT 5 mg Oral a ctive Take 1 tablet (5 mg total) by mouth 2 (two) times a day [facility] fluticasone (FLONASE) 50 MCG/ACT nasal spray [id number] 11/12/2016 12:00:00 AM EDT aborted FLUTICASONE PROP IONATE SUSP [facility] Omeprazole 20 MG Delayed Release Oral Ca psule omeprazole (PRILOSEC) 20 MG capsule omeprazole (PRILOSEC) 20 MG capsule 40 mg Oral aborted Take 40 mg by mouth nightly [facility] Nitroglycerin 0.4 MG Sublingual Tablet n itroglycerin (NITROSTAT) 0.4 MG SL tablet nitroglycerin (NITROSTAT) 0.4 MG SL tablet 0.4 mg Subli ngual aborted Place 0.4 mg under t he tongue every 5 (five) minutes as needed for chest pain [facility] Furosemide 40 MG Oral Tablet furosemide (LASIX) 40 MG tablet furosemide (LASIX) 40 MG tablet 20 mg Oral aborted Take 20 mg by mouth daily [facility] Aspirin 81 MG Delayed Release Oral Tablet aspirin EC 8 1 MG EC tablet aspirin EC 81 MG EC tablet 81 mg Oral aborted Take 81 mg by mouth daily [facility] Insurance Providers Payer name Policy type / Coverage type Policy ID Covered libertarian ID Covered libertarian's relationship to mehta Policy Mehta Plan Information Medicare Advantage [facility] Commercial [id number] Self [employer] U/W Commercial [id number] Self [facility] U[facility]W [employer] [id number] Self WOWash [id number] [facility] U/W [employer] [id number] Self [id number] [facility] U/W [employer] [id number] Self WOWash [id number] [facility] U/W Commercial [id number] Self VY [id number] [facility] [id number] Self [id number] [id number] [facility] Commercial [id number] Self VY [id number] [facility] U[facility]W Commercial [id number] Self VY [id number] MEDICARE BLUE PPO 306 [id number] SP [id number] [facility] U/W Commercial [id number] Self VY [id number] Medicare Blue Ppo Commercial [id number] [id number] Self [id number] [facility] U[facility]W Commercial [id number] Self VY [id number] [facility] MEDICARE [id number] Vibha [id number] [facility] U/W Commercial [id number] Self VY [id number] Medicare Blue Ppo Commercial [id number] Self [id number] [facility] U[facility]W Commercial [id number] [id number].0 Self AnaisY [id number] [facility] U/W Commercial [id number] [id number] Self VY [id number] MEDICARE COMPLETE [id number] SP [id number] [facility] U/W Commercial [id number] [id number] Self AnaisY [id number] [facility] U/W Commercial [id number] 2.0.1.654610.3.227.99.806.1101.0 Self AnaisY [id number] [facility] [id number] Self [id number] [employer] [id number] 2..1.217481.3.227.99.936.44882.0 Self [id number] [employer] [id number] 2..1.419218.3.227.99.936.75657.0 Self [id number] MEDICARE COMPLETE [id number] [facility] [id number] Self [id number] [facility] Medigap Part B [id number] [id number].0 Self [id number] [facility] Medigap Part B [id number] 2.0.1.624089.3.227.99.806.1101.0 Self 96 [id number] [facility] Medigap Part B [id number] 2.0.1.624495.3.227.99.806.1101.0 Self 96 [id number] [facility] Medigap Part B [id number] 2.0.1.364287.3.227.99.806.1101.0 Self 96 [id number] [facility] Medigap Part B [id number] 2.160.1.556032.3.227.99.806.1101.0 Self [id number] [facility] Commercial [id number] 2.16840.1.762832.3.227.99.936.86706.0 Self [id number] [facility] Medigap Part B [id number] 2.0.1.107984.3.227.99.806.1101.0 Self 96 [id number] [facility] Medigap Part B [id number] 2.0.1.891803.3.227.99.806.1101.0 Self 96 [id number] [facility] Medigap Part B [id number] 2.0.1.324906.3.227.99.806.1101.0 Self 96 [id number] [facility] Medigap Part B [id number] 2.0.1.690209.3.227.99.806.1101.0 Self 96 [id number] [facility] Medigap Part B [id number] 2.0.1.168376.3.227.99.806.1101.0 Self 96 [id number] [facility] Medigap Part B [id number] 2.0.1.989082.3.227.99.806.1101.0 Self 96 [id number] [facility] Medigap Part B [id number] 2.0.1.749710.3.227.99.806.1101.0 Self 96 [id number] [facility] Medigap Part B [id number] 2.0.1.967909.3.227.99.806.1101.0 Self 96 [id number] [facility] MEDICARE [id number] [id number] [facility] MEDICARE [id number] Vibha [id number] [facility] ([facility]) Commercial [id number] [id number] Self [id number] [employer] [id number] [employer] Medigap Part B [id number] 2..1.641725.3.227.99.8646.25704.0 Self [id number] MEDICARE -O/P [id number] 18 [id number] [facility] Medicare Commercial [id number] 2..1.659[id number] Self [id number] BLUE CROSS BLUE SHIELD-O/P [id number] 18 [id number] BS [place] Medigap Part B [id number] Self [id number] [facility] Medicare Solutions Medigap Part B [id number] Self [id number] BS [place] Commercial [id number] Self V [id number] BS [place] Commercial [id number] 2..[id number] .70566.0 Self 806 BS [place] Medigap Part B [id number] 2..[id number]0.0 Self V [id number] BS [place] Medigap Part B [id number] ..[id number] Self V [id number] [employer] BC[employer] B [id number] S VYM [id number] EXCELLUS BS [id number] Vibha VYM [id number] [facility] UNAVAILABLE UNAVAILABLE [facility] Medicare Commercial [id number] Self [id number] BC/BS OF [place] S [id number] S YM [id number] MEDICARE COMPLETE-[facility] O [id number] S [id number] MEDICARE P [id number] S [id number] A BS [place] Medigap Part B [id number] Self V [id number] [facility] Medicare Commercial [id number] Self [id number] [facility] Medicare Commercial [id number] Self [id number] SELF PAY UNAVAILABLE UNAVAILA BLE Problems, Conditions, and Diagnoses Code Display Name Description Problem Type Effective Dates Data Source(s) I10 Essential (primary) hypertension Essential (primary) h ypertension Diagnosis 10/20/2020 08:22:14 AM EDT [facility] 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 Z98.61 Coronary angioplasty status Coronary angioplasty statu s Diagnosis 10/20/2020 08:22:14 AM EDT [facility] Z68.36 Body mass index (BMI) 36.0-36.9, adult B odessa mass index (BMI) 36.0-36.9, adult Diagnosis 10/20/2020 08:22:14 AM EDT [facility] E66.01 Morbid (severe) obesity due to excess ca lories Morbid (severe) obesity due to excess ca Diagnosis 10/20/2020 08:22:14 AM EDT [facility] G47.33 Obstructive sleep apnea (adult) (pediatr ic) Obstructive sleep apnea (adult) (pediatr Diagnosis 10/20/2020 08:22:14 AM EDT [facility] R06.02 Shortness of breath Shortness of breath Diagnosis 0 10/20/2020 08:22:14 AM EDT [facility] E78.00 Pure hypercholesterolemia, unspecified P ure hypercholesterolemia, unspecified Diagnosis 10/20/2020 08:22:14 AM EDT [facility] I48.0 Paroxysmal atrial fibrillation Paroxysmal atrial fibri llation Diagnosis 10/20/2020 08:22:14 AM EDT [facility] I48.91 Unspecified atrial fibrillation Unspecified atri al fibrillation Diagnosis 04/20/2020 08:50:39 AM EST [facility] Surgeries/Procedures Procedure Description Date Indications Data Source(s) OFFICE OUTPATIENT VISIT 25 MINUTES 02/01/2021 12:00:00 AM EDT [facility] ([facility]) EXCISION NAIL MATRIX PERMANENT REMOVAL 01/03/2021 12:0 0:00 AM EDT [facility] ([facility] EXCISION NAIL MATRIX PERMANENT REMOVAL 01/03/2021 12:0 0:00 AM EDT [facility] ([facility] EXCISION NAIL MATRIX PERMANENT REMOVAL 01/03/2021 12:0 0:00 AM EDT [facility] ([facility] EXCISION NAIL MATRIX PERMANENT REMOVAL 01/03/2021 12:0 0:00 AM EDT [facility] ([facility] EXCISION NAIL MATRIX PERMANENT REMOVAL 01/03/2021 12:0 0:00 AM EDT [facility] ([facility] OFFICE OUTPATIENT NEW 45 MINUTES 12/13/2020 12:00:00 A M EDT [facility] ([facility] ) OFFICE OUTPATIENT VISIT 15 MINUTES 11/29/2020 12:00:00 AM EDT [facility] ([facility] OFFICE OUTPATIENT VISIT 15 MINUTES 11/24/2020 12:00:00 AM EDT [facility] ([facility]) ECG ROUTINE ECG W/LEAST 12 LDS W/I&R <td>POCT AMB EKG</td><td>Routine</td><td>10/20/2020 9:26 AM EDT</td><td> Paroxysmal atrial fibrillation</td><td> </td> 10/20/2020 09:26:00 AM EDT Paroxysmal atrial fibrillation [facility] Paroxysmal atrial fibrillation ARTHROCENTESIS ASPIR&/INJECTION MAJOR JT/BURSA 021 12:00:00 AM EDT [facility] ([facility]) OFFICE OUTPATIENT VISIT 15 MINUTES 10/14/2020 12:00:00 AM EDT [facility] ([facility]) ALBUMIN URINE MICROALBUMIN SEMIQUANTITATIVE <td>URINE, MICROALBUMIN</td><td>Routine</td><td>09/27/2020</td><td></td><td> </td> 09/27/2020 12:00:00 AM EDT [facility] THYROID STIMULATING HORMONE TSH <td>TSH</td><td>Routine</td><td>09/27/2020</td><td></td><td> </td> 09/27/2020 12:00:00 AM EDT [facility] HEMOGLOBIN GLYCOSYLATED A1C <td>HEMOGLOBIN A1C</td><td>Routine</td><td>09/27/2020</td><td></td><td> </td> 09/27/2020 12:00:00 AM EDT [facility] HEPATIC FUNCTION PANEL <td>HEPATIC FUNCTION PANEL</td><td>Routine</td><td>09/27/2020</td><td></td><td> </td> 09/27/2020 12:00:00 AM EDT [facility] LIPID PANEL <td>LIPID PANEL</td><td>Rout ine</td><td>09/27/2020</td><td></td><td> </td> 09/27/2020 12:00:00 AM EDT [facility] BASIC METABOLIC PANEL CALCIUM TOTAL <td>BASIC METABOLI C PANEL</td><td>Routine</td><td>09/27/2020</td><td></td><td> </td> 09/27/2020 12:00:00 AM EDT [facility] Remove Impacted Cerumen 07/27/2020 12:00:00 AM EDT [facility] OFFICE OUTPATIENT VISIT 25 MINUTES 07/27/2020 12:00:00 AM EDT [facility] ARTHROCENTESIS ASPIR&/INJECTION MAJOR JT/BURSA 021 12:00:00 AM EST [facility] ([facility]) RADEX SHOULDER COMPLETE MINIMUM 2 VIEWS 07/20/2020 12: 00:00 AM EST [facility] ([facility]) OFFICE OUTPATIENT VISIT 15 MINUTES 07/20/2020 12:00:00 AM EST [facility] ([facility] BLOOD COUNT COMPLETE AUTO&AUTO DIFRNTL WBC COUNT <td>C BC AND DIFFERENTIAL</td><td>Routine</td><td>03/28/2020</td><td></td><td> </td> 03/28/2020 12:00:00 AM EST [facility] HEMOGLOBIN GLYCOSYLATED A1C <td>HEMOGLOBIN A1C</td><td>Routine</td><td>03/28/2020</td><td></td><td> </td> 03/28/2020 12:00:00 AM EST [facility] HEPATIC FUNCTION PANEL <td>HEPATIC FUNCTION PANEL</td><td>Routine</td><td>03/28/2020</td><td></td><td> </td> 03/28/2020 12:00:00 AM [facility] LIPID PANEL <td>LIPID PANEL</td><td>Rout ine</td><td>03/28/2020</td><td></td><td> </td> 03/28/2020 12:00:00 AM [facility] BASIC METABOLIC PANEL CALCIUM TOTAL <td>BASIC METABOLI C PANEL</td><td>Routine</td><td>03/28/2020</td><td></td><td> </td> 03/28/2020 12:00:00 AM [facility] ARTHROCENTESIS ASPIR&/INJECTION MAJOR JT/BURSA 12:00:00 AM EDT [facility] ([facility]) Results ID Date Data Source [id number] 12/28/2020 03:24:00 PM EDT [facility]) Name Value Range Interpretation Code Description Data Shelly rce(s) Supporting Document(s) Hemoglobin A1c 5.5 % Normal (applies to non-numeric r esults) [facility]) <content>REFERENCE RANGES:</content><br/ ><content></content>
<content><=5.6% NORMAL</content>
<content>5.7-6.4% SUGGESTS IMPAIRED GLUCOSE METABOLISM/PREDIABETIC</content>
<content>>= 6.5% ABNORMAL</content>
<content></content> Estimated Average Glucose 111 mg/dL 60-110 Above high normal [facility]) ID Date Data Source [id number] 12/28/2020 03:24:00 PM EDT [facility] ([facility]) Name Value Range Interpretation Code Description Data Shelly rce(s) Supporting Document(s) White Blood Count 6.6 10 4.0-10.0 Normal (applies to non-numeri c results) [facility] ([facility]) Hemoglobin 13.1 g/dL 13.5-17.5 Below low normal [facility] ( [facility]) Hematocrit 38.7 % 42.0-52.0 Below low normal [facility] ( [facility]) Red Blood Count 3.80 10 4.30-6.10 Below low normal [facility] ([facility]) Mean Corpuscular Hemoglobin 34.5 pg 27.0-33.0 Above high normal [facility] ([facility]) Mean Corpuscular HGB Conc 33.9 g/dL 32.0-36.5 Normal (applies to non-numeric results) [facility] ([facility]) Mean Corpuscular Volume 101.8 fl 80.0-96.0 Above high normal [facility] ([facility]) Neutrophils % 54.1 % 36.0-66.0 Normal (applies to non-numeric re sults) [facility] ([facility]) Red Cell Distribution Width 13.0 % 11.5-14.5 Norm al (applies to non-numeric results) [facility] ([facility]) Platelet Count, Automated 162 10 150-450 Normal (applies to non-numeric results) [facility] ([facility]) Lymph % 25.9 % 24.0-44.0 Normal (applies to non-numeric resul ts) [facility] ([facility]) Eos % 5.7 % 0.0-3.0 Above high normal [facility] ([facility]) [place] % 13.2 % 2.0-8.0 Above high normal [facility] ([facility]) Immature Granulocyte % 0.5 % 0-3.0 Normal (applies to non-n umeric results) [facility] ([facility]) Nucleated Red Blood Cell % 0.0 % 0-0 Normal (applies to n on-numeric results) [facility] ([facility]) Baso % 0.6 % 0.0-1.0 Normal (applies to non-numeric resul ts) [facility] ([facility]) Lymph # 1.7 10 1.5-5.0 Normal (applies to non-numeric resul ts) [facility] ([facility]) Neutrophils # 3.6 10 1.5-8.5 Normal (applies to non-numeric re sults) [facility] ([facility]) Eos # 0.4 10 0.0-0.5 Normal (applies to non-numeric resul ts) [facility] ([facility]) Baso # 0.0 10 0.0-0.2 Normal (applies to non-numeric resul ts) [facility] ([facility]) [place] # 0.9 10 0.0-0.8 Above high normal [facility] ([facility]) ID Date Data Source [id number] 12/28/2020 03:24:00 PM EDT [facility]) Name Value Range Interpretation Code Description Data Shelly rce(s) Supporting Document(s) Total Iron Binding Capacity 216 ug/dL 250-450 Below low normal [facility] ([facility]) Iron (Fe) 67 ug/dL 65-175 Normal (applies to non-numeric resul ts) [facility] ([facility]) Percent Saturation 31.0 % 19.7-50.0 Normal (applies to non-numer ic results) [facility] ([facility]) ID Date Data Source [id number] 12/28/2020 03:24:00 PM EDT [facility]) Name Value Range Interpretation Code Description Data Shelly rce(s) Supporting Document(s) Glucose, Fasting 95 mg/dL 70-100 Normal (applies to non-numeric results) [facility] ([facility]) Creatinine For GFR 1.10 mg/dL 0.70-1.30 Normal (applies to non -numeric results) [facility] ([facility]) Blood Urea Nitrogen 16 mg/dL 7-18 Normal (applies to non-nume tucker results) [facility]) Sodium Level 138 meq/L 136-145 Normal (applies to non-numeric res ults) [facility] ([facility]) Glomerular Filtration Rate Laboratory test result Normal (applies to non- numeric results) [facility] ([facility]) <content>Units are mL/min/1.73 m2</content>
<content></content>
<content>Chronic Kidney Disease Staging per NKF:</content>
<content></content>
<content>Stage I & II GFR >=60 Normal to Mildly Decreased</content>
<content>Stage III GFR 30-59 Moderately Decreased</content>
<content>Stage IV GFR 15-29 Severely Decreased</content>
<content>Stage V GFR <15 Very Little GFR Left</content>
<content>ESRD GFR <15 on DEHYDROGENATION OPERATOR</content>
<content></content> Potassium Serum 4.9 meq/L 3.5-5.1 Normal (applies to non-numeric results) [facility] ([facility]) Anion Gap 5 meq/L 8-16 Below low normal [facility] ( [facility]) Chloride Level 107 meq/L 98-107 Normal (applies to non-numeric r esults) [facility] ([facility]) Carbon Dioxide Level 26 meq/L 21-32 Normal (applies to non-num benjamin results) [facility] ([facility]) Calcium Level 8.4 mg/dL 8.8-10.2 Below low normal [facility] ([facility]) ID Date Data Source [id number] 09/27/2020 11:59:00 AM EDT [facility] ([facility]) Name Value Range Interpretation Code Description Data Shelly rce(s) Supporting Document(s) PSA Comment Laboratory test result Normal (applies to non- numeric results) [facility] ([facility]) . The percent free PSA is performed on a reflex basis only when the total PSA is between 4.0 and 10.0 ng/mL. Performed at: RN - [facility] [address] [id number] [address] Commissioner: Dianna Dwyer MD, Phone: [phone] PSA Total 1.4 ng/mL 0.0-4.0 Normal (applies to non-numeric resul ts) [facility] ([facility]) Ludesi ECLIA methodology. . According to the [place] [employer], Serum PSA should decrease and [...] the presence or absence of malignant disease. ID Date Data Source [id number] 09/27/2020 11:59:00 AM EDT [facility]) Name Value Range Interpretation Code Description Data Shelly rce(s) Supporting Document(s) Creatinine, Urine 105.0 mg/dL Normal (applies to non-numer ic results) [facility] ([facility]) Malb Urine Siemens 13.5 mg/L Normal (applies to non-numer ic results) [facility] [facility]) Jude/Creat Ratio 12.8 MCG/MG 0.0-30.0 Normal (applies to non-numeric results) [facility]) THE [employer] STATES THAT MICROALBUMINURIA IS PRESENT IF THE MICROALBUMIN/CREATININE RATIO EXCEEDS 30 MCG/MG. THE THRESHOLD FOR CLINICAL ALBUMINURIA IS REACHED AT 300 MCG/MG. THE CLASSIFICATION OF A PATIENT SHOULD BE BASED UPON AT LEAST 2 OF 3 ABNORMAL RESULTS ON SPECIMENS COLLECTED WITHIN A 3 TO 6 MONTH TIME FRAME. ID Date Data Source [id number] 09/27/2020 11:59:00 AM EDT [facility]) Name Value Range Interpretation Code Description Data Shelyl rce(s) Supporting Document(s) Thyrotropin [Units/volume] in Serum or Plasma 2.560 uIU/ML 0. 358-3.740 Normal (applies to non-numeric results) [facility] ([facility]) Thyroxine (T4) free [Mass/volume] in Serum or Plasma 1.08 ng/dL 0.76-1.46 Normal (applies to non-numeric results) [facility]) ID Date Data Source [id number] 09/27/2020 11:59:00 AM EDT [facility]) Name Value Range Interpretation Code Description Data Shelly rce(s) Supporting Document(s) Triglycerides Level 59 mg/dL Normal (applies to non-nume tucker results) [facility] ([facility]) Cholesterol Level 106 mg/dL Normal (applies to non-numeri c results) [facility] ([facility]) HDL Cholesterol 45 mg/dL Normal (applies to non-numeric results) [facility] ([facility]) LDL Cholesterol 49 mg/dL Normal (applies to non-numeric results) [facility] ([facility]) Non-HDL-C 61 mg/dL Normal (applies to non-numeric resul ts) [facility] ([facility]) Cholesterol Risk Ratio 2.355 Normal (applies to non-n umeric results) [facility] ([facility]) ID Date Data Source [id number] 09/27/2020 11:59:00 AM EDT [facility] ([facility]) Name Value Range Interpretation Code Description Data Shelly rce(s) Supporting Document(s) Glucose, Fasting 83 mg/dL 70-100 Normal (applies to non-numeric results) [facility] ([facility]) Creatinine For GFR 1.00 mg/dL 0.70-1.30 Normal (applies to non -numeric results) [facility] ([facility]) Blood Urea Nitrogen 25 mg/dL 7-18 Above high normal [facility]) Potassium Serum 4.5 meq/L 3.5-5.1 Normal (applies to non-numeric results) [facility] ([facility]) Sodium Level 140 meq/L 136-145 Normal (applies to non-numeric res ults) [facility] ([facility]) Glomerular Filtration Rate Laboratory test result Normal (applies to non- numeric results) [facility] ([facility]) <content>Units are mL/min/1.73 m2</content>
<content></content>
<content>Chronic Kidney Disease Staging per NKF:</content>
<content></content>
<content>Stage I & II GFR >=60 Normal to Mildly Decreased</content>
<content>Stage III GFR 30- 59 Moderately Decreased</content>
<content>Stage IV GFR 15-29 Severely Decreased</content>
<content>Stage V GFR <15 Very Little GFR Left</content>
<content>ESRD GFR <15 on DEHYDROGENATION OPERATOR</content>
<content></content> Carbon Dioxide Level 26 meq/L 21-32 Normal (applies to non-num benjamin results) [facility] ([facility]) Anion Gap 8 meq/L 8-16 Normal (applies to non-numeric resul ts) [facility] ([facility]) Chloride Level 106 meq/L 98-107 Normal (applies to non-numeric r esults) [facility] ([facility]) Calcium Level 8.6 mg/dL 8.8-10.2 Below low normal [facility] ([facility]) Ast/Sgot 16 U/L 7-37 Normal (applies to non-numeric resul ts) [facility] ([facility]) Alt/SGPT 19 U/L 12-78 Normal (applies to non-numeric resul ts) [facility] ([facility]) Alkaline Phosphatase 56 U/L 45-117 Normal (applies to non-num benjamin results) [facility] ([facility]) Bilirubin,Total 0.6 mg/dL 0.2-1.0 Normal (applies to non-numeric results) [facility] ([facility]) Total Protein 6.2 GM/DL 6.4-8.2 Below low normal [facility]) Albumin 3.5 GM/DL 3.2-5.2 Normal (applies to non-numeric resul ts) [facility] ([facility]) Albumin/Globulin Ratio 1.3 Normal (applies to non-n umeric results) [facility] ([facility]) ID Date Data Source [id number] 09/27/2020 11:59:00 AM EDT [facility] ([facility]) Name Value Range Interpretation Code Description Data Shelly rce(s) Supporting Document(s) Hemoglobin A1c 5.4 % Normal (applies to non-numeric r esults) [facility] ([facility]) <content>REFERENCE RANGES:</content><br/ ><content></content>
<content><=5.6% NORMAL</content>
<content>5.7-6.4% SUGGESTS IMPAIRED GLUCOSE METABOLISM/PREDIABETIC</content>
<content>>= 6.5% ABNORMAL</content>
<content></content> Estimated Average Glucose 108 mg/dL 60-110 Normal (applies to non-numeric results) [facility] ([facility]) ID Date Data Source [id number] 07/05/2020 08:20:00 AM EST [facility] ([facility]) Name Value Range Interpretation Code Description Data Shelly rce(s) Supporting Document(s) Estimated Average Glucose 108 mg/dL 60-110 Normal (applies to non-numeric results) [facility] ([facility]) Hemoglobin A1c 5.4 % Normal (applies to non-numeric r esults) [facility] ([facility]) <content>REFERENCE RANGES:</content><br/ ><content></content>
<content><=5.6% NORMAL</content>
<content>5.7-6.4% SUGGESTS IMPAIRED GLUCOSE METABOLISM/PREDIABETIC</content>
<content>>= 6.5% ABNORMAL</content>
<content></content> ID Date Data Source [id number] 07/05/2020 08:20:00 AM EST [facility]) Name Value Range Interpretation Code Description Data Shelly rce(s) Supporting Document(s) Glucose, Fasting 104 mg/dL 70-100 Above high normal [facility]) Creatinine For GFR 1.03 mg/dL 0.70-1.30 Normal (applies to non -numeric results) [facility] ([facility]) Blood Urea Nitrogen 13 mg/dL 7-18 Normal (applies to non-nume tucker results) [facility] ([facility]) Glomerular Filtration Rate Laboratory test result Normal (applies to non- numeric results) [facility] ([facility]) <content>Units are mL/min/1.73 m2</content>
<content></content>
<content>Chronic Kidney Disease Staging per NKF:</content>
<content></content>
<content>Stage I & II GFR >=60 Normal to Mildly Decreased</content>
<content>Stage III GFR 30- 59 Moderately Decreased</content>
<content>Stage IV GFR 15-29 Severely Decreased</content>
<content>Stage V GFR <15 Very Little GFR Left</content>
<content>ESRD GFR <15 on DEHYDROGENATION OPERATOR</content>
<content></content> Sodium Level 140 meq/L 136-145 Normal (applies to non-numeric res ults) [facility] ([facility]) Potassium Serum 4.3 meq/L 3.5-5.1 Normal (applies to non-numeric results) [facility] ([facility]) Chloride Level 105 meq/L 98-107 Normal (applies to non-numeric r esults) [facility] ([facility]) Anion Gap 5 meq/L 8-16 Below low normal [facility] ( [facility]) Carbon Dioxide Level 30 meq/L 21-32 Normal (applies to non-num benjamin results) [facility] ([facility]) Calcium Level 8.7 mg/dL 8.8-10.2 Below low normal [facility] ([facility]) ID Date Data Source [id number] 03/28/2020 11:01:00 AM EST [facility] ([facility]) Name Value Range Interpretation Code Description Data Shelly rce(s) Supporting Document(s) HDL Cholesterol 46 mg/dL Normal (applies to non-numeric results) [facility] ([facility]) Cholesterol Level 108 mg/dL Normal (applies to non-numeri c results) [facility] ([facility]) Triglycerides Level 65 mg/dL Normal (applies to non-nume tucker results) [facility] ([facility]) Non-HDL-C 62 mg/dL Normal (applies to non-numeric resul ts) [facility] ([facility]) Cholesterol Risk Ratio 2.347 Normal (applies to non-n umeric results) [facility] ([facility]) LDL Cholesterol 49 mg/dL Normal (applies to non-numeric results) [facility] ([facility]) ID Date Data Source [id number] 03/28/2020 11:01:00 AM EST [facility] ([facility]) Name Value Range Interpretation Code Description Data Shelly rce(s) Supporting Document(s) White Blood Count 6.1 10 4.0-10.0 Normal (applies to non-numeri c results) [facility] ([facility]) Hemoglobin 13.3 g/dL 13.5-17.5 Below low normal [facility] ( [facility]) Red Blood Count 4.14 10 4.30-6.10 Below low normal [facility] ([facility]) Hematocrit 40.2 % 42.0-52.0 Below low normal [facility] ( [facility]) Mean Corpuscular Volume 97.1 fl 80.0-96.0 Above high normal [facility] ([facility]) Mean Corpuscular Hemoglobin 32.1 pg 27.0-33.0 Norm al (applies to non-numeric results) [facility] ([facility]) Mean Corpuscular HGB Conc 33.1 g/dL 32.0-36.5 Normal (applies to non-numeric results) [facility] ([facility]) Platelet Count, Automated 158 10 150-450 Normal (applies to non-numeric results) [facility] ([facility]) Red Cell Distribution Width 12.8 % 11.5-14.5 Norm al (applies to non-numeric results) [facility] ([facility]) Neutrophils % 56.5 % 36.0-66.0 Normal (applies to non-numeric re sults) [facility] ([facility]) Lymph % 27.8 % 24.0-44.0 Normal (applies to non-numeric resul ts) [facility] ([facility]) [place] % 12.4 % 0.0-5.0 Above high normal [facility] ([facility]) Immature Granulocyte % 0.7 % 0-3.0 Normal (applies to non-n umeric results) [facility] ([facility]) Eos % 2.1 % 0.0-3.0 Normal (applies to non-numeric resul ts) [facility] ([facility]) Baso % 0.5 % 0.0-1.0 Normal (applies to non-numeric resul ts) [facility] ([facility]) Lymph # 1.7 10 1.5-5.0 Normal (applies to non-numeric resul ts) [facility] ([facility]) Neutrophils # 3.5 10 1.5-8.5 Normal (applies to non-numeric re sults) [facility] ([facility]) Nucleated Red Blood Cell % 0.0 % 0-0 Normal (applies to n on-numeric results) [facility] ([facility]) Eos # 0.1 10 0.0-0.5 Normal (applies to non-numeric resul ts) [facility] ([facility]) Baso # 0.0 10 0.0-0.2 Normal (applies to non-numeric resul ts) [facility] ([facility]) [place] # 0.8 10 0.0-0.8 Normal (applies to non-numeric resul ts) [facility] ([facility]) ID Date Data Source [id number] 03/28/2020 11:01:00 AM EST [facility] ([facility]) Name Value Range Interpretation Code Description Data Shelly rce(s) Supporting Document(s) Glucose, Fasting 93 mg/dL 70-100 Normal (applies to non-numeric results) [facility] ([facility]) Blood Urea Nitrogen 19 mg/dL 7-18 Above high normal [facility] ([facility]) Sodium Level 137 meq/L 136-145 Normal (applies to non-numeric res ults) [facility] ([facility]) Glomerular Filtration Rate Laboratory test result Normal (applies to non- numeric results) [facility] ([facility]) <content>Units are mL/min/1.73 m2</content>
<content></content>
<content>Chronic Kidney Disease Staging per NKF:</content>
<content></content>
<content>Stage I & II GFR >=60 Normal to Mildly Decreased</content>
<content>Stage III GFR 30- 59 Moderately Decreased</content>
<content>Stage IV GFR 15-29 Severely Decreased</content>
<content>Stage V GFR <15 Very Little GFR Left</content>
<content>ESRD GFR <15 on DEHYDROGENATION OPERATOR</content>
<content></content> Creatinine For GFR 1.21 mg/dL 0.70-1.30 Normal (applies to non -numeric results) [facility] ([facility]) Chloride Level 103 meq/L 98-107 Normal (applies to non-numeric r esults) [facility] ([facility]) Potassium Serum 4.3 meq/L 3.5-5.1 Normal (applies to non-numeric results) [facility] ([facility]) Anion Gap 5 meq/L 8-16 Below low normal [facility] ( [facility]) Carbon Dioxide Level 29 meq/L 21-32 Normal (applies to non-num benjamin results) [facility] ([facility]) Calcium Level 8.6 mg/dL 8.8-10.2 Below low normal [facility] ([facility]) Alkaline Phosphatase 52 U/L 45-117 Normal (applies to non-num benjamin results) [facility] ([facility]) Alt/SGPT 16 U/L 12-78 Normal (applies to non-numeric resul ts) [facility] ([facility]) Ast/Sgot 10 U/L 7-37 Normal (applies to non-numeric resul ts) [facility] ([facility]) Total Protein 6.3 GM/DL 6.4-8.2 Below low normal [facility]) Bilirubin,Total 0.6 mg/dL 0.2-1.0 Normal (applies to non-numeric results) [facility] ([facility]) Albumin 3.5 GM/DL 3.2-5.2 Normal (applies to non-numeric resul ts) [facility] ([facility]) Albumin/Globulin Ratio 1.3 Normal (applies to non-n umeric results) [facility] ([facility]) ID Date Data Source [id number] 03/28/2020 11:01:00 AM EST [facility] ([facility]) Name Value Range Interpretation Code Description Data Shelly rce(s) Supporting Document(s) Malb Urine Siemens 5.7 mg/L Normal (applies to non-numer ic results) [facility] ([facility]) Jude/Creat Ratio 4.3 MCG/MG 0.0-30.0 Normal (applies to non-numeric results) [facility] ([facility]) [employer] STATES THAT MICROALBUMINURIA IS PRESENT IF THE MICROALBUMIN/CREATININE RATIO EXCEEDS 30 MCG/MG. THE THRESHOLD FOR CLINICAL ALBUMINURIA IS REACHED AT 300 MCG/MG. THE CLASSIFICATION OF A PATIENT SHOULD BE BASED UPON AT LEAST 2 OF 3 ABNORMAL RESULTS ON SPECIMENS COLLECTED WITHIN A 3 TO 6 MONTH TIME FRAME. Creatinine, Urine 131.0 mg/dL Normal (applies to non-numer ic results) [facility] ([facility]) ID Date Data Source [id number] 03/28/2020 11:01:00 AM EST [facility] ([facility]) Name Value Range Interpretation Code Description Data Shelly rce(s) Supporting Document(s) Hemoglobin A1c 5.7 % Normal (applies to non-numeric r esults) [facility] ([facility]) <content>REFERENCE RANGES:</content><br/ ><content></content>
<content><=5.6% NORMAL</content>
<content>5.7-6.4% SUGGESTS IMPAIRED GLUCOSE METABOLISM/PREDIABETIC</content>
<content>>= 6.5% ABNORMAL</content>
<content></content> Estimated Average Glucose 117 mg/dL 60-110 Above high normal [facility] ([facility]) Procedure Social History Code Duration Value Status Description Data Source(s ) Smoking 02/01/2021 12:00:00 AM EDT Quit completed Quit [facility] ([facility]) Smoking 04/13/2020 12:00:00 AM EST Patient is a former smoker completed Patient is a former smoker [facility] ([facility], ) Vital Signs ID Date Data Source UNK Name Value Range Interpretation Code Description Data Source(s) Body mass index (BMI) [Ratio] 34.9 kg/m2 34.9 k g/m2 [facility] ([facility]) Body temperature 98.3 [degF] 98.3 [degF] [facility] ([facility]) Oxygen saturation in Arterial blood by Pulse oximetry 99 % 99 % [facility] ([facility]) [place] body weight 160 [lb_av] 160 [lb_av] [facility] ([facility]) Heart rate 67 /min 67 /min [facility] ([facility]) Respiratory rate 22 /min 22 /min [facility] ( [facility]) Systolic blood pressure 142 mm[Hg] 142 mm[Hg] [facility]) Diastolic blood pressure 88 mm[Hg] 88 mm[Hg] [facility] ([facility]) Body height 69.8 [in_i] 69.8 [in_i] [facility] ([facility]) 5'9.80" Body weight 242.00 [lb_av] 242.00 [lb_av] [facility] ([facility]) Diastolic blood pressure 82 mm[Hg] 82 mm[Hg] [facility] ([facility], ) Systolic blood pressure 130 mm[Hg] 130 mm[Hg] M [facility] ([facility], ) Body height 69 [in_i] 69 [in_i] [facility] ([facility]) 5'9" Body weight 232.50 [lb_av] 232.50 [lb_av] [facility] ([facility]) Body mass index (BMI) [Ratio] 34.3 kg/m2 34.3 k g/m2 [facility] ([facility]) [place] body weight 160 [lb_av] 160 [lb_av] [facility] ([facility]) Body weight 105.462 kg 105.462 kg [facility] ([facility]) Body surface area Derived from formula 2.20 m2 2.20 m2 [facility] ([facility]) Body height 70 [in_i] 70 [in_i] [facility] ([facility] 5'10" Body weight 225.00 [lb_av] 225.00 [lb_av] [facility] ([facility] Systolic blood pressure 110 mm[Hg] 110 mm[Hg] [facility] ([facility] Diastolic blood pressure 60 mm[Hg] 60 mm[Hg] [facility] ([facility] Heart rate 63 /min 63 /min [facility] ([facility] Body mass index (BMI) [Ratio] 32.3 kg/m2 32.3 k g/m2 [facility] ([facility] Diastolic blood pressure 74 mm[Hg] 74 mm[Hg] [facility] ([facility]) Body weight 232.50 [lb_av] 232.50 [lb_av] [facility] Body height 69.8 [in_i] 69.8 [in_i] [facility] ([facility] 5'9.80" Systolic blood pressure 134 mm[Hg] 134 mm[Hg] [facility] ([facility]) Body mass index (BMI) [Ratio] 33.5 kg/m2 33.5 k g/m2 [facility] ([facility]) Heart rate 75 /min 75 /min [facility] ([facility]) Respiratory rate 18 /min 18 /min [facility] ( [facility]) Body temperature 98.8 [degF] 98.8 [degF] [facility] ([facility]) Oxygen saturation in Arterial blood by Pulse oximetry 97 % 97 % [facility] ([facility]) [place] body weight 160 [lb_av] 160 [lb_av] [facility] ([facility]) Body temperature 98.3 [degF] 98.3 [degF] [facility] ([facility]) Systolic blood pressure 128 mm[Hg] 128 mm[Hg] [facility]) Diastolic blood pressure 72 mm[Hg] 72 mm[Hg] [facility] ([facility]) Body height 69.8 [in_i] 69.8 [in_i] [facility] ([facility] 5'9.80" Body weight 235.38 [lb_av] 235.38 [lb_av] [facility] ([facility]) Body mass index (BMI) [Ratio] 34.0 kg/m2 34.0 k g/m2 [facility] ([facility]) Heart rate 80 /min 80 /min [facility] ([facility]) Respiratory rate 20 /min 20 /min [facility] ( [facility]) Oxygen saturation in Arterial blood by Pulse oximetry 97 % 97 % [facility] ([facility]) [place] body weight 160 [lb_av] 160 [lb_av] [facility] ([facility]) Systolic blood pressure 122 mm[Hg] 122 mm[Hg] [facility] Diastolic blood pressure 80 mm[Hg] 80 mm[Hg] [facility] Heart rate 63 /min 63 /min [facility] Body height 177.8 cm 177.8 cm [facility] Body weight 105.688 kg 105.688 kg [facility] Body mass index (BMI) [Ratio] 33.43 kg/m2 33.43 kg/m2 [facility] Oxygen saturation in Arterial blood by Pulse oximetry 98 % 98 % [facility] Systolic blood pressure 120 mm[Hg] 120 mm[Hg] M [facility] ([facility]) Diastolic blood pressure 80 mm[Hg] 80 mm[Hg] [facility] ([facility]) Body height 69.8 [in_i] 69.8 [in_i] [facility] ([facility] 80" Body weight 233.50 [lb_av] 233.50 [lb_av] [facility] ([facility]) Body mass index (BMI) [Ratio] 33.7 kg/m2 33.7 k g/m2 [facility] ([facility]) Heart rate 70 /min 70 /min [facility] ([facility]) Respiratory rate 16 /min 16 /min [facility] ( [facility]) Body temperature 97.9 [degF] 97.9 [degF] [facility] ([facility]) Oxygen saturation in Arterial blood by Pulse oximetry 98 % 98 % [facility]) [place] body weight 160 [lb_av] 160 [lb_av] [facility] ([facility]) Systolic blood pressure 122 mm[Hg] 122 mm[Hg] [facility] ([facility]) Heart rate 51 /min 51 /min [facility] ([facility]) Respiratory rate 22 /min 22 /min [facility] ( [facility]) Body temperature 98.6 [degF] 98.6 [degF] [facility] ([facility]) Oxygen saturation in Arterial blood by Pulse oximetry 99 % 99 % [facility] [facility] ([facility]) Diastolic blood pressure 68 mm[Hg] 68 mm[Hg] [facility] ([facility]) Body height 69.8 [in_i] 69.8 [in_i] [facility] ([facility]) 5'9.80" Body weight 245.00 [lb_av] 245.00 [lb_av] [facility] ([facility]) Body mass index (BMI) [Ratio] 35.4 kg/m2 35.4 k g/m2 [facility] ([facility]) [place] body weight 160 [lb_av] 160 [lb_av] [facility] ([facility]) Systolic blood pressure 112 mm[Hg] 112 mm[Hg] [facility] Diastolic blood pressure 58 mm[Hg] 58 mm[Hg] [facility] Heart rate 98 /min 98 /min [facility] Body height 177.8 cm 177.8 cm [facility] Body weight 110.95 kg 110.95 kg [facility] Body mass index (BMI) [Ratio] 35.10 kg/m2 35.10 kg/m2 [facility] Oxygen saturation in Arterial blood by Pulse oximetry 99 % 99 % [facility] Systolic blood pressure 140 mm[Hg] 140 mm[Hg] Phillip [facility]PHEN[facility] ([facility]) Diastolic blood pressure 72 mm[Hg] 72 mm[Hg] [place] ([facility]) Heart rate 70 /min 70 /min [facility] ([facility]) Oxygen saturation in Arterial blood by Pulse oximetry 94 % 94 % [facility] ([facility]) Body temperature 96.7 [degF] 96.7 [degF] [facility] ([facility]) Body height 69 [in_i] 69 [in_i] [facility] ([facility]) 5'9" Body weight 241.00 [lb_av] 241.00 [lb_av] [facility] ([facility]) Body mass index (BMI) [Ratio] 35.6 kg/m2 35.6 k g/m2 [facility] ([facility]) [place] body weight 160 [lb_av] 160 [lb_av] [facility] Body weight 109.318 kg 109.318 kg [facility] ([facility]) Body surface area Derived from formula 2.24 m2 2.24 m2 [facility] ([facility]) Respiratory rate 18 /min 18 /min [facility] ( [facility]) Heart rate 68 /min 68 /min [facility] ([facility]) Body temperature 98.9 [degF] 98.9 [degF] [facility] ([facility]) Body height 69.8 [in_i] 69.8 [in_i] [facility] ([facility] 5'9.80" Body weight 246.25 [lb_av] 246.25 [lb_av] [facility] Body mass index (BMI) [Ratio] 35.5 kg/m2 35.5 k g/m2 [facility] ([facility]) Oxygen saturation in Arterial blood by Pulse oximetry 94 % 94 % [facility] ([facility]) [place] body weight 160 [lb_av] 160 [lb_av] [facility] Systolic blood pressure 144 mm[Hg] 144 mm[Hg] [facility] ([facility]) Diastolic blood pressure 68 mm[Hg] 68 mm[Hg] [facility] ([facility]) Patient Treatment Plan of Care Planned Activity Planned Date Details Description Data Source (s) Furosemide 20 MG Oral Tablet 02/05/2020 12:00:00 AM EDT [facility] Omeprazole 40 MG Delayed Release Oral Capsule 02/05/2020 12:00:00 A M EDT [facility] apixaban 5 MG Oral Tablet 11/24/2019 12:00:00 AM EDT [facility] fluticasone (FLONASE) 50 MCG/ACT nasal spray 11/12/2016 12:00:00 AM EDT [facility] Nitroglycerin 0.4 MG Sublingual Tablet [facility] Furosemide 40 MG Oral Tablet [facility] Aspirin 81 MG Delayed Release Oral Tablet [facility] Omeprazole 20 MG Delayed Release Oral Capsule [facility]
[2021-03-02] MEDS ORDERED: propofoL 200 MG/20 ML VIAL As Ordered ONE ×2 (08:51→09:15)
[2021-03-02] MEDS ORDERED: LIDOCAINE 2% 100MG/5ML SDV (FOR ANES.) As Ordered ONE (08:51)
--- NOTE | 2021-03-02 09:29 | ROOR ---
Patient Name: Alireza Gordillo Procedure Date: 03/02/2021 8:43 AM Date of : 1940 Age: 80 Room: [facility] Gender: Male Note Status: Finalized Procedure: Colonoscopy Indications: High risk colon cancer surveillance: Personal history of non-advanced adenoma, Last colonoscopy: May 2015. Patient also had a positive cologuard test. Providers: Janak Arreguin MD Referring MD: Keturah MCCALL DO Requesting Provider: Medicines: Monitored Anesthesia Care Complications: No immediate complications. Procedure: Pre-Anesthesia Assessment: - Prior to the procedure, a History and Physical was performed, and patient medications and allergies were reviewed. The patient is competent. The risks and benefits of the procedure and the sedation options and risks were discussed with the patient. All questions were answered and informed consent was obtained. Patient identification and proposed procedure were verified by the physician, the nurse and the risk officer in the procedure room. Mental Status Examination: alert and oriented. Airway Examination: normal oropharyngeal airway and neck mobility. Prophylactic Antibiotics: The patient does not require prophylactic antibiotics. Prior Anticoagulants: The patient has taken Eliquis (apixaban), last dose was 4 days prior to procedure. ASA Grade Assessment: III - A patient with severe systemic disease. After reviewing the risks and benefits, the patient was deemed in satisfactory condition to undergo the procedure. The anesthesia plan was to use monitored anesthesia care (MAC). Immediately prior to administration of medications, the patient was re-assessed for adequacy to receive sedatives. The heart rate, respiratory rate, oxygen saturations, blood pressure, adequacy of pulmonary ventilation, and response to care were monitored throughout the procedure. The physical status of the patient was re-assessed after the procedure. The Colonoscope was introduced through the anus and advanced to the cecum, identified by appendiceal orifice and ileocecal valve. The colonoscopy was somewhat difficult due to significant looping. Successful completion of the procedure was aided by using manual pressure. The patient tolerated the procedure well. The quality of the bowel preparation was good. Findings: The perianal and digital rectal examinations were normal. A 3 mm polyp was found in the ascending colon. The polyp was sessile. The polyp was removed with a jumbo cold forceps. Resection and retrieval were complete. Estimated blood loss was minimal. Multiple medium-mouthed diverticula were found in the sigmoid colon and distal descending colon. Non-bleeding internal hemorrhoids were found. The hemorrhoids were mild. Impression: - One 3 mm polyp in the ascending colon, removed with a jumbo cold forceps. Resected and retrieved. - Diverticulosis in the sigmoid colon and in the distal descending colon. - Non-bleeding internal hemorrhoids. Recommendation: - Discharge patient to home. - Resume previous diet. - Continue present medications. - Await pathology results. Procedure Code(s): --- Professional --- 44240, Colonoscopy, flexible; with biopsy, single or multiple Diagnosis Code(s): --- Professional --- Z86.010, Personal history of colonic polyps K63.5, Polyp of colon K64.8, Other hemorrhoids K57.30, Diverticulosis of large intestine without perforation or abscess without bleeding CPT copyright 2019 [employer]. All rights reserved. The codes documented in this report are preliminary and upon unemployment examiner review may be revised to meet current compliance requirements. Janak Arreguin MD Janak Arreguin MD 03/02/2021 9:29:06 AM Electronically signed by Janak Arreguin MD Number of Addenda: 0 Note Initiated On: 03/02/2021 8:43 AM Estimated Blood Loss: Estimated blood loss was minimal.
[2021-03-02 09:45] VITALS: BP 108/74
== END 2021-03-02 09:50 | disposition home or self-care (01) ==
LOC: M OPP 07:42
PROVIDERS: ATTEND Surgery
DX: D12.2 Benign neoplasm of ascending colon (principal); K57.30 Diverticulosis of large intestine without perforation or abscess without bleeding; K64.8 Other hemorrhoids; R19.5 Other fecal abnormalities; Z86.010 Personal history of colon polyps; Z79.01 Long term (current) use of anticoagulants; Z79.899 Other long term (current) drug therapy

== ENCOUNTER → 2021-04-03 | Outpatient (CLI) | payer MEDICARE ==
[~2021-04-03] MED LIST changes: -NS 1,000 ML IV ONE
[2021-04-03 13:25] LABS: BASO # 0.1 10^3/uL (0.0-0.2); BASO % 0.7 % (0.0-1.0); EOS # 0.2 10^3/uL (0.0-0.5); EOS % 2.6 % (0.0-3.0); HEMATOCRIT 41.1 % (42.0-52.0); HEMOGLOBIN 13.6 g/dl (13.5-17.5); LYMPH # 1.7 10^3/uL (1.5-5.0); LYMPH % 24.5 % (24.0-44.0); MEAN CORPUSCULAR HEMOGLOBIN 33.1 pg (27.0-33.0); MEAN CORPUSCULAR HGB CONC 33.1 g/dl (32.0-36.5); MONO # 0.8 10^3/uL (0.0-0.8); MONO % 11.7 % (2.0-8.0); NEUTROPHILS # 4.1 10^3/uL (1.5-8.5); NEUTROPHILS % 60.2 % (36.0-66.0); PLATELET COUNT, AUTOMATED 182 10^3/uL (150-450); RED BLOOD COUNT 4.11 10^6/uL (4.30-6.10); WHITE BLOOD COUNT 6.8 10^3/uL (4.0-10.0)
[2021-04-03 13:48] LABS: ALBUMIN 3.4 GM/DL (3.2-5.2); BILIRUBIN,TOTAL 0.4 MG/DL (0.2-1.0); CALCIUM LEVEL 9.1 MG/DL (8.8-10.2); CHOLESTEROL RISK RATIO 2.631 (<5); CREATININE FOR GFR 1.28 MG/DL (0.70-1.30); GLOMERULAR FILTRATION RATE 57.9 (>42); PERCENT SATURATION 30.3 % (19.7-50.0); POTASSIUM SERUM 4.9 MEQ/L (3.5-5.1); TOTAL PROTEIN 6.6 GM/DL (6.4-8.2)
== END ==
LOC: M PLALAB 10:11
PROVIDERS: ATTEND Family Medicine
DX: E11.9 Type 2 diabetes mellitus without complications (principal); D50.9 Iron deficiency anemia, unspecified

== ENCOUNTER → 2021-05-09 | Outpatient (CLI) | payer MEDICARE ==
[2021-05-09 13:56] LABS: BLOOD UREA NITROGEN 19 MG/DL (7-18); CARBON DIOXIDE LEVEL 30 MEQ/L (21-32); CHLORIDE LEVEL 105 MEQ/L (98-107); CREATININE FOR GFR 1.12 MG/DL (0.70-1.30); GLOMERULAR FILTRATION RATE > 60.0 (>42); GLUCOSE, FASTING 105 MG/DL (70-100); POTASSIUM SERUM 4.9 MEQ/L (3.5-5.1); SODIUM LEVEL 139 MEQ/L (136-145)
== END ==
LOC: M PLALAB 11:34
PROVIDERS: ATTEND Nurse Practitioner Adult Health
DX: I13.0 Hypertensive heart and chronic kidney disease with heart failure and stage 1 through stage 4 chronic kidney disease, or unspecified chronic kidney disease (principal); I50.9 Heart failure, unspecified; N18.9 Chronic kidney disease, unspecified

== ENCOUNTER → 2021-07-11 | Outpatient (CLI) | payer MEDICARE ==
[2021-07-11 16:01] LABS: BASO % 0.6 % (0.0-1.0); EOS # 0.3 10^3/uL (0.0-0.5); EOS % 4.2 % (0.0-3.0); HEMATOCRIT 41.3 % (42.0-52.0); HEMOGLOBIN 13.8 g/dl (13.5-17.5); LYMPH # 2.2 10^3/uL (1.5-5.0); LYMPH % 33.1 % (24.0-44.0); MEAN CORPUSCULAR HEMOGLOBIN 33.3 pg (27.0-33.0); MEAN CORPUSCULAR HGB CONC 33.4 g/dl (32.0-36.5); MEAN CORPUSCULAR VOLUME 99.5 fl (80.0-96.0); MONO # 0.8 10^3/uL (0.0-0.8); MONO % 12.5 % (2.0-8.0); NEUTROPHILS # 3.3 10^3/uL (1.5-8.5); NEUTROPHILS % 49.2 % (36.0-66.0); PLATELET COUNT, AUTOMATED 185 10^3/uL (150-450); RED BLOOD COUNT 4.15 10^6/uL (4.30-6.10); WHITE BLOOD COUNT 6.7 10^3/uL (4.0-10.0)
[2021-07-11 16:34] LABS: ALBUMIN 3.6 GM/DL (3.2-5.2); BILIRUBIN,TOTAL 0.5 MG/DL (0.2-1.0); CHOLESTEROL RISK RATIO 2.5 (<5); CREATININE FOR GFR 1.42 MG/DL (0.70-1.30); GLOMERULAR FILTRATION RATE 51.3 (>42); PERCENT SATURATION 34.9 % (19.7-50.0); POTASSIUM SERUM 4.4 MEQ/L (3.5-5.1); TOTAL PROTEIN 6.7 GM/DL (6.4-8.2)
== END ==
LOC: M PLALAB 14:34
PROVIDERS: ATTEND Nurse Practitioner Adult Health
DX: E11.9 Type 2 diabetes mellitus without complications (principal); D50.9 Iron deficiency anemia, unspecified; I13.0 Hypertensive heart and chronic kidney disease with heart failure and stage 1 through stage 4 chronic kidney disease, or unspecified chronic kidney disease; I50.9 Heart failure, unspecified

== ENCOUNTER → 2021-08-04 | Outpatient (CLI) | payer MEDICARE | LOC: M PLAIMG 09:30 | PROVIDERS: ATTEND Family Medicine | DX: R06.02 Shortness of breath (principal); J84.112 Idiopathic pulmonary fibrosis; M17.0 Bilateral primary osteoarthritis of knee; M11.261 Other chondrocalcinosis, right knee ==

== ENCOUNTER → 2021-08-11 | Outpatient (CLI) | payer MEDICARE ==
[~2021-08-11] MED LIST changes: +ISOVUE-370 76% 100ML VIAL ONE
== END ==
LOC: M PLAIMG 08:35
PROVIDERS: ATTEND Family Medicine
DX: J18.9 Pneumonia, unspecified organism (principal); J84.10 Pulmonary fibrosis, unspecified; J43.9 Emphysema, unspecified
CPT/HCPCS: 71260; Q9967

== ENCOUNTER → 2021-09-19 | Outpatient (CLI) | payer MEDICARE ==
[~2021-09-19] MED LIST changes: -ISOVUE-370 76% 100ML VIAL ONE
[2021-09-19 15:37] LABS: HEMOGLOBIN A1c 5.7 %
[2021-09-19 15:52] LABS: ALBUMIN 3.7 GM/DL (3.2-5.2); BILIRUBIN,TOTAL 0.9 MG/DL (0.2-1.0); CHOLESTEROL RISK RATIO 2.309 (<5); CREATININE FOR GFR 1.33 MG/DL (0.70-1.30); GLOMERULAR FILTRATION RATE 55.4 (>42); POTASSIUM SERUM 4.9 MEQ/L (3.5-5.1); TOTAL PROTEIN 6.8 GM/DL (6.4-8.2)
[2021-09-20 14:42] LABS: MALB URINE SIEMENS 11.4 MG/L; MAU/CREAT RATIO 5.6 MCG/MG (0.0-30.0)
[2021-09-21 23:08] LABS: PSA TOTAL 0.6 ng/mL (0.0-4.0)
== END ==
LOC: M PLALAB 13:39
PROVIDERS: ATTEND Family Medicine
DX: R06.02 Shortness of breath (principal); E11.9 Type 2 diabetes mellitus without complications; E78.2 Mixed hyperlipidemia; R35.0 Frequency of micturition; R97.20 Elevated prostate specific antigen [PSA]

== ENCOUNTER → 2021-09-19 | Outpatient (CLI) | payer MEDICARE ==
[2021-09-19 15:33] LABS: C REACTIVE PROTEIN QUANTITATIV < 0.30 MG/DL (0.00-0.30); RHEUMATOID FACTOR QUANT < 10.0 IU/ML (<15.0)
[2021-09-19 18:20] LABS: CA19-9 TUMOR MARKER,CARBOHYDRA 25.2 U/ML (<35.0)
== END ==
LOC: M PLALAB 13:41
PROVIDERS: ATTEND Internal Medicine Pulmonary Disease
DX: J84.10 Pulmonary fibrosis, unspecified (principal)

== ENCOUNTER → 2021-11-24 | Outpatient (CLI) | payer MEDICARE | LOC: M PLAIMG 10:09 | PROVIDERS: ATTEND Internal Medicine Pulmonary Disease | DX: J84.10 Pulmonary fibrosis, unspecified (principal); J47.9 Bronchiectasis, uncomplicated; I25.10 Atherosclerotic heart disease of native coronary artery without angina pectoris; M25.78 Osteophyte, vertebrae ==

== ENCOUNTER → 2022-01-19 | Outpatient (CLI) | payer MEDICARE ==
[2022-01-19 14:52] LABS: BASO # 0.1 10^3/uL (0.0-0.2); BASO % 0.6 % (0.0-1.0); EOS # 0.4 10^3/uL (0.0-0.5); EOS % 4.5 % (0.0-3.0); HEMATOCRIT 40.6 % (42.0-52.0); HEMOGLOBIN 13.3 g/dl (13.5-17.5); LYMPH # 1.4 10^3/uL (1.5-5.0); MEAN CORPUSCULAR HEMOGLOBIN 33.6 pg (27.0-33.0); MEAN CORPUSCULAR HGB CONC 32.8 g/dl (32.0-36.5); MEAN CORPUSCULAR VOLUME 102.5 fl (80.0-96.0); MONO # 1.1 10^3/uL (0.0-0.8); MONO % 12.5 % (2.0-8.0); NEUTROPHILS # 5.6 10^3/uL (1.5-8.5); NEUTROPHILS % 65.6 % (36.0-66.0); PLATELET COUNT, AUTOMATED 178 10^3/uL (150-450); RED BLOOD COUNT 3.96 10^6/uL (4.30-6.10); WHITE BLOOD COUNT 8.6 10^3/uL (4.0-10.0)
[2022-01-19 15:24] LABS: HEMOGLOBIN A1c 5.7 %
[2022-01-19 15:46] LABS: ALBUMIN 3.3 GM/DL (3.2-5.2); ALT/SGPT 14 U/L (12-78); BILIRUBIN,TOTAL 0.4 MG/DL (0.2-1.0); BLOOD UREA NITROGEN 18 MG/DL (7-18); CALCIUM LEVEL 8.8 MG/DL (8.8-10.2); CARBON DIOXIDE LEVEL 25 MEQ/L (21-32); CHLORIDE LEVEL 107 MEQ/L (98-107); FREE T4 1.06 NG/DL (0.76-1.46); GLOMERULAR FILTRATION RATE > 60.0 (>42); GLUCOSE, FASTING 102 MG/DL (70-100); IRON (FE) 92 UG/DL (65-175); SODIUM LEVEL 137 MEQ/L (136-145); TOTAL IRON BINDING CAPACITY 236 UG/DL (250-450); TOTAL PROTEIN 6.4 GM/DL (6.4-8.2)
[2022-01-19 16:18] LABS: TOTAL 25(OH) VITAMIN D 28.3 NG/ML (30.0-100.0)
[2022-01-19 19:46] LABS: CREATININE, URINE 14.5 MG/DL; MALB URINE SIEMENS < 5.0 MG/L; MAU/CREAT RATIO 34.4 MCG/MG (0.0-30.0)
== END ==
LOC: M PLALAB 09:27
PROVIDERS: ATTEND Nurse Practitioner Adult Health
DX: M17.0 Bilateral primary osteoarthritis of knee (principal); E11.9 Type 2 diabetes mellitus without complications; D50.9 Iron deficiency anemia, unspecified; Z79.899 Other long term (current) drug therapy

== ENCOUNTER → 2022-02-23 | Outpatient (CLI) | payer MEDICARE ==
[2022-02-23 11:17] LABS: HEMATOCRIT 39.7 % (42.0-52.0); HEMOGLOBIN 13.3 g/dl (13.5-17.5); MEAN CORPUSCULAR HEMOGLOBIN 34.5 pg (27.0-33.0); MEAN CORPUSCULAR HGB CONC 33.5 g/dl (32.0-36.5); MEAN CORPUSCULAR VOLUME 103.1 fl (80.0-96.0); PLATELET COUNT, AUTOMATED 169 10^3/uL (150-450); RED BLOOD COUNT 3.85 10^6/uL (4.30-6.10); WHITE BLOOD COUNT 7.7 10^3/uL (4.0-10.0)
[2022-02-23 11:27] LABS: INR 1.12; PROTHROMBIN TIME 14.6 SECONDS (12.5-14.5)
[2022-02-23 11:58] LABS: ALBUMIN 3.5 GM/DL (3.2-5.2); ALT/SGPT 16 U/L (12-78); BILIRUBIN,TOTAL 0.5 MG/DL (0.2-1.0); BLOOD UREA NITROGEN 22 MG/DL (7-18); CARBON DIOXIDE LEVEL 29 MEQ/L (21-32); CHLORIDE LEVEL 105 MEQ/L (98-107); CREATININE FOR GFR 1.22 MG/DL (0.70-1.30); GLOMERULAR FILTRATION RATE > 60.0 (>42); GLUCOSE, FASTING 114 MG/DL (70-100); POTASSIUM SERUM 4.7 MEQ/L (3.5-5.1); SODIUM LEVEL 136 MEQ/L (136-145); TOTAL PROTEIN 6.6 GM/DL (6.4-8.2)
[2022-02-23 12:04] LABS: ERYTHROCYTE SEDIMENTATION RATE 11 mm/hr (0-20)
== END ==
LOC: M RAD 09:47
PROVIDERS: ATTEND Orthopaedic Surgery
DX: M17.11 Unilateral primary osteoarthritis, right knee (principal); I51.7 Cardiomegaly; J84.10 Pulmonary fibrosis, unspecified